=== PATIENT | male | born 1945 | race Hispanic/Latino ===

== ENCOUNTER 2016-10-19 14:48 | Inpatient (IN) | payer MEDICARE, MEDICAID ==
[2016-10-19 15:00] VITALS: BMI 25.7
--- NOTE | 2016-10-19 17:03 | RAD ---
PROCEDURE: Right Foot Radiographs. HISTORY: foot injury/paresthesia COMPARISON: None. FINDINGS: BONES: Normal. No fracture. JOINTS: Arthritic degenerative changes. SOFT TISSUES: Normal. OTHER FINDINGS: None. IMPRESSION: No evidence of acute fracture or dislocation.
[2016-10-19 17:26] LABS: ALB/GLOB RATIO 1.3 (1.1-1.8); ALKALINE PHOSPHATASE 69 U/L (38-133); ALT/SGPT 24 U/L (7-56); AST/SGOT 39 U/L (15-59); BILIRUBIN,TOTAL 2.2 mg/dL (0.2-1.3); BLOOD UREA NITROGEN 15 mg/dL (7-21); CALCIUM 9.8 mg/dL (8.4-10.5); CARBON DIOXIDE 27 mmol/L (21-33); CHLORIDE 98 mmol/L (98-107); GFR AFRICAN-AMERICAN > 60; GLUCOSE,RANDOM 106 mg/dL (70-110); POTASSIUM 3.8 mmol/L (3.6-5.0); SODIUM 138 mmol/L (132-148); TOTAL PROTEIN 7.5 g/dL (5.8-8.3)
[2016-10-19 17:27] LABS: ADD MANUAL DIFF? YES; HEMATOCRIT 39.7 % (42.0-52.0); MEAN CELL VOLUME 81.9 fL (80.0-105.0); MEAN CORPUSCULAR HEMOGLOBIN 28.2 pg (25.0-35.0); MEAN CORPUSCULAR HGB CONC 34.5 g/dl (31.0-37.0); PLATELET COUNT 67 10^3/uL (120.0-450.0); RED CELL DISTRIBUTION WIDTH 15.1 % (11.5-14.5)
[2016-10-19 17:40] LABS: INR 1.23 (0.93-1.08); PARTIAL THROMBOPLASTIN TIME 33.3 Seconds (23.7-30.8)
[2016-10-19] MEDS ORDERED: cefTRIAXone 1 gm 100 ML IVPB STA (18:11)
[2016-10-19] MEDS ORDERED: Vancomycin 1gm in NS 250ml 250 ML IVPB STA (18:12)
--- NOTE | 2016-10-19 18:15 | ED PDOC ---
Arrival/HPI - General Chief Complaint: Abnormal Skin Integrity Time Seen by Provider: 10/19/16 15:12 Historian: Patient - History of Present Illness Narrative History of Present Illness (Text): 10/19/16 18:12 71yo male with PMhx of hypertension, hyperlipdemia BIBA for right foot pain and paresthesia. States he started having pain and foot feels "frozen after removing his boot few days ago. He came to ED because of worsening pain to the foot. He did not take any medication. Denies fever, chills, trauma, any other complaint. Past Medical History - Provider Review Nursing Documentation Reviewed: Yes - Infectious Disease Hx of Infectious Diseases: None - Cardiac Hx Hypertension: Yes - Pulmonary Hx Respiratory Disorders: No - Neurological Hx Paralysis: No - HEENT Hx HEENT Disorder: No Other/Comment: wearing glasses - Renal Hx Renal Disorder: Yes Hx Pyelonephritis: Yes - Endocrine/Metabolic Hx Endocrine Disorders: No - Hematological/Oncological Hx Blood Transfusions: No - Integumentary Hx Dermatological Disorder: No - Musculoskeletal/Rheumatological Hx Musculoskeletal Disorders: No - Gastrointestinal Hx Gastrointestinal Disorders: No - Genitourinary/Gynecological Hx Genitourinary Disorders: Yes Hx Urinary Tract Infection: Yes - Psychiatric Hx Emotional Abuse: No Hx Physical Abuse: No Hx Substance Use: No - Past Surgical History Past Surgical History: No Previous - Surgical History Hx Coronary Stent: Yes - Anesthesia Hx Anesthesia Reactions: No Hx Malignant Hyperthermia: No - Suicidal Assessment Feels Threatened In Home Enviroment: No Family/Social History - Physician Review Nursing Documentation Reviewed: Yes Family/Social History: Unknown Family HX Smoking Status: Former Smoker Hx Alcohol Use: No Hx Substance Use: No Allergies/Home Meds Allergies/Adverse Reactions: Allergies No Known Allergies Allergy (Verified 10/19/16 15:00) Home Medications: Home Meds Medication Instructions Recorded Confirmed amLODIPine [Norvasc] 10 mg PO DAILY 10/14/15 09/04/16 Folic Acid 1 mg PO DAILY 12/07/15 09/04/16 Atorvastatin [Lipitor] 20 mg PO DAILY 09/04/16 09/04/16 Finasteride [Proscar] 5 mg PO DAILY 09/04/16 09/04/16 Simvastatin 40 mg PO DAILY 09/04/16 09/04/16 Review of Systems - Physician Review All systems were reviewed & negative as marked: Yes - Review of Systems Constitutional: Normal Eyes: Normal ENT: Normal Respiratory: Normal Cardiovascular: Normal Gastrointestinal: Normal Genitourinary Male: Normal Musculoskeletal: Arthralgias (Right foot pain) Skin: Normal Neurological: Normal Endocrine: Normal Hemo/Lymphatic: Normal Psychiatric: Normal Physical Exam Vital Signs Reviewed: Yes Vital Signs Temp Pulse Resp BP Pulse Ox 10/19/16 22:00 98.2 F 77 16 138/82 10/19/16 17:03 98.1 F 75 17 138/83 98 Temperature: Afebrile Blood Pressure: Normal Pulse: Regular Respiratory Rate: Normal Appearance: Positive for: Well-Appearing, Non-Toxic, Comfortable Pain Distress: None Mental Status: Positive for: Alert and Oriented X 3 - Systems Exam Head: Present: Atraumatic, Normocephalic Pupils: Present: PERRL Extroacular Muscles: Present: EOMI Conjunctiva: Present: Normal Mouth: Present: Moist Mucous Membranes Neck: Present: Normal Range of Motion Respiratory/Chest: Present: Clear to Auscultation, Good Air Exchange. No: Respiratory Distress, Accessory Muscle Use Cardiovascular: Present: Regular Rate and Rhythm, Normal S1, S2. No: Murmurs Abdomen: Present: Normal Bowel Sounds. No: Tenderness, Distention, Peritoneal Signs Back: Present: Normal Inspection Upper Extremity: Present: Normal Inspection. No: Cyanosis, Edema Lower Extremity: Present: Edema (3+ pitting edema), Tenderness (Over dorsal and 1st toe), Erythema (Dorsal right foot), Neurovascularly Intact. No: CALF TENDERNESS, NORMAL PULSES (DEcreased), Sandra's Sign, Temperature Abnormalties Neurological: Present: GCS=15, CN II-XII Intact, Speech Normal Skin: Present: Warm, Dry, Normal Color. No: Rashes Psychiatric: Present: Alert, Oriented x 3, Normal Insight, Normal Concentration Medical Decision Making ED Course and Treatment: 10/20/16 03:19 PT presented secondary to stated history. He was afebrile. Lab was unremarkable, but pt have cellulitis on his right foot secondary to the abrasion on his toe. He lives alone. He will be admitted for IV abx Foot xray was negative for any acute finding Case was AZAM Jacobsen and pt was admitted. - Lab Interpretations Lab Results: 10/19/16 16:50 10/19/16 16:50 Lab Results 10/19/16 16:50: WBC 11.0 D, RBC 4.85, Hgb 13.7 L, Hct 39.7 L, MCV 81.9, MCH 28.2, MCHC 34.5, RDW 15.1 H, Plt Count 67 L, Neutrophils % (Manual) 59, Band Neutrophils % 7 H, Lymphocytes % (Manual) 8 L, Monocytes % (Manual) 25 H, Eosinophils % (Manual) 1, Platelet Evaluation Normal, PT 13.3 H, INR 1.23 H, APTT 33.3 H, Sodium 138, Potassium 3.8, Chloride 98, Carbon Dioxide 27, Anion Gap 17, BUN 15, Creatinine 1.3, Est GFR ( Amer) > 60, Est GFR (Non-Af Amer) 54, Random Glucose 106, Calcium 9.8, Total Bilirubin 2.2 H, AST 39, ALT 24 , Alkaline Phosphatase 69, Total Protein 7.5, Albumin 4.3, Globulin 3.2, Albumin /Globulin Ratio 1.3 - RAD Interpretation Radiology Orders: 10/19/16 15:40 FOOT RIGHT 3 VIEWS ROUTINE [RAD] Stat - Medication Orders Current Medication Orders: Acetaminophen (Tylenol 325mg Tab) 650 mg PO Q6H PRN PRN Reason: Fever >100.4 F Amlodipine Besylate (Norvasc) 10 mg PO DAILY JESSI Atorvastatin Calcium (Lipitor) 20 mg PO DAILY JESSI Finasteride (Proscar) 5 mg PO DAILY JESSI Folic Acid (Folic Acid) 1 mg PO DAILY JESSI Ceftriaxone Sodium (Rocephin 1 Gram Ivpb) 100 mls @ 100 mls/hr IVPB DAILY JESSI PRN Reason: Protocol Vancomycin HCl (Vancomycin 1gm) 250 mls @ 167 mls/hr IVPB Q12H JESSI PRN Reason: Protocol Last Admin: 10/19/16 23:11 Dose: 167 MLS/HR eMAR Start Stop Document 10/19/16 23:11 MCV (Rec: 10/19/16 23:12 MCV [facility]) Intravenous Solution Start Date 10/19/16 Start Time 23:11 End Date 10/20/16 End time 00:41 Total Infusion Time 90 Oxycodone/Acetaminophen (Percocet 5/325 Mg Tab) 1 tab PO Q4H PRN PRN Reason: Pain, moderate (4-7) Stop: 10/22/16 22:45 Discontinued Medications Ceftriaxone Sodium (Rocephin 1 Gram Ivpb) 100 mls @ 200 mls/hr IVPB STAT STA PRN Reason: Protocol Stop: 10/19/16 18:40 Last Admin: 10/19/16 19:01 Dose: 200 MLS/HR eMAR Start Stop Document 10/19/16 19:01 REEDTimothy (Rec: 10/19/16 19:01 REEDJ [id number]) Intravenous Solution Start Date 10/19/16 Start Time 19:01 Vancomycin HCl (Vancomycin 1gm) 250 mls @ 167 mls/hr IVPB STAT STA PRN Reason: Protocol Stop: 10/19/16 19:41 Last Admin: 10/19/16 19:36 Dose: 167 MLS/HR eMAR Start Stop Document 10/19/16 19:36 EKEOO (Rec: 10/19/16 19:36 EKEOO [facility] [place] [id number]) Intravenous Solution Start Date 10/19/16 Start Time 19:36 Disposition/Present on Arrival - Present on Arrival Any Indicators Present on Arrival: No History of DVT/PE: No History of Uncontrolled Diabetes: No Urinary Catheter: No History of Decub. Ulcer: No History Surgical Site Infection Following: None - Disposition Have Diagnosis and Disposition been Completed?: Yes Diagnosis: Cellulitis Disposition: HOSPITALIZED Disposition Time: 18:10 Patient Problems: Current Active Problems Problem Status Diagnosed Cellulitis Acute Condition: FAIR
[2016-10-19 18:44] LABS: BAND 7 % (0-2); EOSINOPHIL 1 % (0.0-3.0); NEUTROPHIL 59 % (50.0-70.0)
[2016-10-19 18:45] LABS: PLATELET ESTIMATE NORMAL (NORMAL)
[2016-10-19] MEDS ORDERED: Oxycodone/Acetaminophen 5/325 mg Tab PO PRN (22:44)
[2016-10-19] MEDS: Vancomycin 1gm in NS 250ml 250 ML IVPB SCH (23:11)
[2016-10-20 07:48] LABS: ALB/GLOB RATIO 1.2 (1.1-1.8); ALKALINE PHOSPHATASE 61 U/L (38-133); ALT/SGPT 22 U/L (7-56); AST/SGOT 39 U/L (15-59); BILIRUBIN,TOTAL 1.9 mg/dL (0.2-1.3); BLOOD UREA NITROGEN 15 mg/dL (7-21); CALCIUM 9.1 mg/dL (8.4-10.5); CARBON DIOXIDE 26 mmol/L (21-33); CHLORIDE 99 mmol/L (98-107); CHOLESTEROL 120 mg/dL (130-200); GFR AFRICAN-AMERICAN > 60; GLUCOSE,RANDOM 91 mg/dL (70-110); POTASSIUM 4.1 mmol/L (3.6-5.0); SODIUM 137 mmol/L (132-148); TOTAL PROTEIN 6.6 g/dL (5.8-8.3); URIC ACID 8.4 mg/dL (3.5-8.5)
[2016-10-20 07:58] LABS: FREE T4 1.05 ng/dL (0.78-2.19)
[2016-10-20 08:12] LABS: PROSTATE SPECIFIC ANTIGEN 0.3 ng/mL (0.00-2.5); THYROID STIMULATING HORMONE 0.41 mIU/mL (0.46-4.68)
[2016-10-20 08:13] VITALS: RESP 20
[2016-10-20] MEDS: cefTRIAXone 1 gm 100 ML IVPB SCH (09:37)
[2016-10-20] MEDS ORDERED: Enoxaparin 40 mg Syringe SC SCH (10:00)
[2016-10-20] MEDS: Vancomycin 1gm in NS 250ml 250 ML IVPB SCH ×2 (12:38→22:17)
--- NOTE | 2016-10-20 13:26 | PN ---
DATE: 10/20/2016 The patient is a 71-year-old, seen and examined, not a very good historian. He states he was having some foot discomfort. When he took his shoes off he saw some swelling, he was unable to walk, so he came to the ER for evaluation. PHYSICAL EXAMINATION: GENERAL: He is awake and alert, communicative. VITAL SIGNS: He is afebrile, pulse 70, respirations 20, blood pressure 149/78. LUNGS: Bilateral good airflow, no rhonchi or crackle. HEART: S1, S2 audible. ABDOMEN: Soft, nontender, no rebound, no guarding. NEUROLOGIC: The patient is awake and alert, communicative. Moves all extremities. EXTREMITIES: Bilateral pretibial pulses are very feeble. He has, it seems like, blood blister in hi s right heel and the forefoot; however, the foot is not cold. LABORATORY: Sodium 137, potassium 4.1, chloride 99, CO2 26, BUN 15, creatinine 1.2, blood sugar of 9 1. C-reactive protein is more than 15, total cholesterol 120. His WBC is 11.0, hemoglobin 13, hemat ocrit 39.7, platelet of 67. PT is 13.3, INR 1.23. His right leg arterial Doppler is pending. ASSESSMENT AND PLAN: 1. Right foot contusion versus cellulitis versus trauma. 2. Hypertension. 3. Hyperlipidemia. 4. History of diverticulosis. 5. Status post . 6. Chronic anemia. 7. Coronary artery disease. PLAN: Currently, the patient is on his usual medications. He is on DVT prophylaxis. He is getting Rocephin and vanco. Awaiting podiatry and ID input. We will follow up his CBC and CMP in the a.m. We will follow up his blood cultures. Yakov Jacobsen MD cc: [phone] TT: 10/20/2016 13:26:20 Confirmation # [id number] Dictation # [id number] kareem
--- NOTE | 2016-10-20 13:44 | HP ---
HISTORY OF PRESENT ILLNESS: The patient is a 71-year-old, known to me from previous admission, who c norm to Emergency Room, very ____. The patient stated that he was having some discomfort, pain and sw elling in his right foot that got worse today to the point that he was unable to put any pressure. H as been having pain and swelling and had ____. Denies any trauma to the area. No history of fever o r chills. No history of nausea, vomiting, no diarrhea. PAST MEDICAL HISTORY: Significant for: 1. Hypertension. 2. History of diverticulosis and he had episode of diverticulitis. 3. History of coronary artery disease status post multiple angioplasties. 4. Hyperlipidemia. ALLERGIES: He is not allergic to any medications. MEDICATIONS AT HOME: He is on amlodipine 10 mg daily, simvastatin 40 mg daily, folic acid 1 mg daily , Proscar 5 mg daily, atorvastatin 40 mg daily. SOCIAL HISTORY: Denies smoking or drinking. He used to be a heavy smoker in the past. REVIEW OF SYSTEMS: Significant for right foot pain and swelling, erythema on the volar aspect. PHYSICAL EXAMINATION: GENERAL: He is awake and alert, communicative. VITAL SIGNS: He is afebrile, pulse 75, respirations 17, blood pressure 138/83. LUNGS: Bilateral fair airflow, no rhonchi or crackle. HEART: S1, S2 audible. No murmur. ABDOMEN: Soft, nontender, no rebound, no guarding. NEUROLOGIC: He is awake and alert and communicative. EXTREMITIES: He has right foot significant edema with palpable tenderness. LABORATORY DATA: WBC is 11, hemoglobin 13.7, hematocrit 39.7, platelet of 67. PT 13.3, INR 1.23. C hemistry: Sodium 138, potassium 3.8, chloride 98, CO2 of 27, BUN 15, creatinine 1.3, blood sugar of 106. X-ray of right foot: There is no evidence of acute fracture or dislocation. ASSESSMENT: 1. Right foot cellulitis. 2. Hypertension. 3. Hyperlipidemia. 4. Coronary artery disease. 5. Rule out gout. PLAN: Will resume the patient's usual medication and cover him empirically with antibiotics. Will o rder for uric acid level for the morning. Blood culture has been sent. ID consult by Dr. Frances and podiatric consult by Dr. Lucas have been requested. Yakov Jacobsen MD cc: [phone] TT: 10/20/2016 08:53:16 mn
--- NOTE | 2016-10-20 16:38 | CP.PCM.CON ---
History of Present Illness - History of Present Illness History of Present Illness: 71 year old male with PMH of HTN, dyslipidemia came in to [facility] because of of right foot pain and numbness which has worsened in the last 2-3 days since his boot was removed. He denies animal contacts, wading in water, walking barefoot on soil, specific trauma to the foot. He also denies fever or chills, no nausea or vomiting, headache or dizziness, no rhinorrhea, no chest pain, no SOB, no cough, no diarrhea, no dysuria. Infectious Diseases consult is requested to further evaluate and manage. 10/19/16 18:12 71yo male with PMhx of hypertension, hyperlipdemia BIBA for right foot pain and paresthesia. States he started having pain and foot feels "frozen after removing his boot few days ago. He came to ED because of worsening pain to the foot. He did not take any medication. Denies fever, chills, trauma, any other complaint. Review of Systems - Review of Systems All systems: reviewed and no additional remarkable complaints except (as per HPI ) Past Patient History - Infectious Disease Hx of Infectious Diseases: None - Past Medical History & Family History Past Medical History?: Yes Past Family History: Reviewed and not pertinent - Past Social History Smoking Status: Former Smoker Alcohol: None Drugs: Denies - CARDIAC Hx Hypertension: Yes - PULMONARY Hx Respiratory Disorders: No - NEUROLOGICAL Hx Paralysis: No - HEENT Hx HEENT Problems: No Other/Comment: wearing glasses - RENAL Hx Chronic Kidney Disease: Yes Hx Pyelonephritis: Yes - ENDOCRINE/METABOLIC Hx Endocrine Disorders: No - HEMATOLOGICAL/ONCOLOGICAL Hx Blood Transfusions: No - INTEGUMENTARY Hx Dermatological Problems: No - MUSCULOSKELETAL/RHEUMATOLOGICAL Hx Musculoskeletal Disorders: No - GASTROINTESTINAL Hx Gastrointestinal Disorders: No - GENITOURINARY/GYNECOLOGICAL Hx Genitourinary Disorders: Yes Hx Urinary Tract Infection: Yes - PSYCHIATRIC Hx Emotional Abuse: No Hx Physical Abuse: No Hx Substance Use: No - SURGICAL HISTORY Hx Coronary Stent: Yes - ANESTHESIA Hx Anesthesia Reactions: No Hx Malignant Hyperthermia: No Meds Allergies/Adverse Reactions: Allergies Allergy/AdvReac Type Severity Reaction Status Date / Time No Known Allergies Allergy Verified 10/19/16 15:00 - Medications Medications: Current Medications Acetaminophen (Tylenol 325mg Tab) 650 mg PO Q6H PRN PRN Reason: Fever >100.4 F Amlodipine Besylate (Norvasc) 10 mg PO DAILY JESSI Atorvastatin Calcium (Lipitor) 20 mg PO DAILY JESSI Finasteride (Proscar) 5 mg PO DAILY JESSI Folic Acid (Folic Acid) 1 mg PO DAILY JESSI Ceftriaxone Sodium (Rocephin 1 Gram Ivpb) 100 mls @ 100 mls/hr IVPB DAILY JESSI PRN Reason: Protocol Vancomycin HCl (Vancomycin 1gm) 250 mls @ 167 mls/hr IVPB Q12H JESSI PRN Reason: Protocol Last Admin: 10/19/16 23:11 Dose: 167 mls/hr Oxycodone/Acetaminophen (Percocet 5/325 Mg Tab) 1 tab PO Q4H PRN PRN Reason: Pain, moderate (4-7) Stop: 10/22/16 22:45 Physical Exam - Constitutional Appears: Non-toxic, No Acute Distress - Head Exam Head Exam: NORMAL INSPECTION - ENT Exam ENT Exam: Mucous Membranes Moist - Neck Exam Neck exam: Negative for: Lymphadenopathy, Meningismus - Respiratory Exam Respiratory Exam: Decreased Breath Sounds - Cardiovascular Exam Cardiovascular Exam: +S1, +S2 - GI/Abdominal Exam GI & Abdominal Exam: Soft. absent: Tenderness - Extremities Exam Additional comments: right foot with discoloration on the plantar surface with tenderness noted Results - Vital Signs Recent Vital Signs: Last Vital Signs Temp 98.1 F 10/19/16 17:03 Pulse 75 10/19/16 17:03 Resp 17 10/19/16 17:03 BP 138/83 10/19/16 17:03 Pulse Ox 98 10/19/16 17:03 - Labs Result Diagrams: 10/19/16 16:50 10/20/16 07:00 Assessment & Plan - Assessment and Plan (Free Text) Plan: Assessment Right foot skin and skin structure infection, R/O peripheral arterial disease HTN dyslipidemia Plan Started patient on Vancomycin and Rocephin pending blood cx, Podiatry evaluation ; xray of the foot reviewed which did not show acute pathology Follow up doppler ultrasound of the right leg Will follow clinically
--- NOTE | 2016-10-20 22:16 | US ---
PROCEDURE: Lower extremity ZULY exam HISTORY: Peripheral vascular disease with pain and ulceration. Previous smoker. PHYSICIAN(S): Sandip Storey MD. FINDINGS: The resting ZULY's are normal: right, 1.32and left, 1.13. The brachial systolic pressures are symmetric. The high thigh pressures and waveforms are relatively normal. The calf PVR waveforms augment normally. No significant gradients are noted across the thighs. The ankle and metatarsal waveforms are relatively normal and symmetric. No significant pressure gradients are noted across the lower legs. IMPRESSION: 1. Relatively normal ZULY and PVR examination at rest.
[2016-10-21 07:18] LABS: ALB/GLOB RATIO 1.2 (1.1-1.8); ALKALINE PHOSPHATASE 57 U/L (38-133); ALT/SGPT 22 U/L (7-56); AST/SGOT 29 U/L (15-59); BILIRUBIN,TOTAL 0.9 mg/dL (0.2-1.3); BLOOD UREA NITROGEN 16 mg/dL (7-21); CALCIUM 9.1 mg/dL (8.4-10.5); CARBON DIOXIDE 26 mmol/L (21-33); CHLORIDE 101 mmol/L (98-107); GFR AFRICAN-AMERICAN > 60; GLUCOSE,RANDOM 111 mg/dL (70-110); HEMATOCRIT 37.9 % (42.0-52.0); MEAN CELL VOLUME 82.4 fL (80.0-105.0); MEAN CORPUSCULAR HEMOGLOBIN 27.8 pg (25.0-35.0); MEAN CORPUSCULAR HGB CONC 33.8 g/dl (31.0-37.0); PLATELET COUNT 78 10^3/uL (120.0-450.0); POTASSIUM 4.2 mmol/L (3.6-5.0); RED CELL DISTRIBUTION WIDTH 15.1 % (11.5-14.5); SODIUM 137 mmol/L (132-148); TOTAL PROTEIN 6.5 g/dL (5.8-8.3)
[2016-10-21 07:21] LABS: ADD MANUAL DIFF? YES
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
[2016-10-21 08:57] LABS: ATYPICAL LYMPHOCYTE 2 % (0.0-0.0); BAND 5 % (0-2); NEUTROPHIL 70 % (50.0-70.0)
[2016-10-21 08:58] LABS: ANISOCYTOSIS 1+; EOSINOPHIL 2 % (0.0-3.0); HYPOCHROMIA SLIGHT; PLATELET ESTIMATE LOW (NORMAL)
[2016-10-21 08:59] LABS: LARGE PLATELETS PRESENT; MICROCYTOSIS SLIGHT; OVALOCYTES SLIGHT
[2016-10-21] MEDS: Vancomycin 1gm in NS 250ml 250 ML IVPB SCH ×2 (10:23→22:52)
[2016-10-21] MEDS: cefTRIAXone 1 gm 100 ML IVPB SCH (10:23)
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
--- NOTE | 2016-10-21 16:18 | CP.PCM.PN ---
Subjective - Date & Time of Evaluation Date of Evaluation: 10/21/16 Time of Evaluation: 15:20 - Subjective Subjective: Comfortable, afebrile, not in distress, less discomfort with the right foot. Objective - Vital Signs/Intake and Output Vital Signs (last 24 hours): Temp Pulse Resp BP Pulse Ox 98.6 F 72 20 137/81 98 10/21/16 09:10 10/21/16 10:21 10/21/16 09:10 10/21/16 10:21 10/21/16 09:10 Intake and Output: 10/21/16 10/21/16 06:59 18:59 Intake Total 850 Output Total 400 Balance 450 - Medications Medications: Current Medications Acetaminophen (Tylenol 325mg Tab) 650 mg PO Q6H PRN PRN Reason: Fever >100.4 F Amlodipine Besylate (Norvasc) 10 mg PO DAILY [facility] Last Admin: 10/21/16 10:21 Dose: 10 mg Atorvastatin Calcium (Lipitor) 20 mg PO DAILY [facility] Last Admin: 10/21/16 10:21 Dose: 20 mg Docusate Sodium (Colace) 100 mg PO BID [facility] Last Admin: 10/21/16 10:21 Dose: 100 mg Finasteride (Proscar) 5 mg PO DAILY [facility] Last Admin: 10/21/16 10:21 Dose: 5 mg Folic Acid (Folic Acid) 1 mg PO DAILY [facility] Last Admin: 10/21/16 10:21 Dose: 1 mg Ceftriaxone Sodium (Rocephin 1 Gram Ivpb) 100 mls @ 100 mls/hr IVPB DAILY [facility] PRN Reason: Protocol Last Admin: 10/21/16 10:23 Dose: 100 mls/hr Vancomycin HCl (Vancomycin 1gm) 250 mls @ 167 mls/hr IVPB Q12H [facility] PRN Reason: Protocol Last Admin: 10/21/16 10:23 Dose: 167 mls/hr Oxycodone/Acetaminophen (Percocet 5/325 Mg Tab) 1 tab PO Q4H PRN PRN Reason: Pain, moderate (4-7) Stop: 10/22/16 22:45 - Labs Labs: 10/21/16 06:30 10/21/16 06:30 PT 13.3 Seconds (9.9-11.8) H 10/19/16 16:50 INR 1.23 (0.93-1.08) H 10/19/16 16:50 APTT 33.3 Seconds (23.7-30.8) H 10/19/16 16:50 - Constitutional Appears: Non-toxic, No Acute Distress - Head Exam Head Exam: NORMAL INSPECTION - ENT Exam ENT Exam: Mucous Membranes Moist - Neck Exam Neck Exam: absent: Lymphadenopathy, Meningismus - Cardiovascular Exam Cardiovascular Exam: +S1, +S2 - GI/Abdominal Exam GI & Abdominal Exam: Soft. absent: Tenderness - Extremities Exam Additional comments: right foot with dressings in place Assessment and Plan - Assessment and Plan (Free Text) Plan: Assessment Right foot skin and skin structure infection, with no evidence of peripheral arterial disease HTN dyslipidemia Plan continue Vancomycin and Rocephin (day 2); blood cx have been negative; reviewed Podiatry evaluation; xray of the foot reviewed which did not show acute pathology Will continue to follow clinically
[2016-10-21 17:44] VITALS: O2SAT 97
--- NOTE | 2016-10-22 06:50 | PN ---
DATE: 10/21/2016 The patient is a 71-year-old, seen and examined lying in bed. Does not have much complaint. Eating and tolerating. No nausea, vomiting, no diarrhea. PHYSICAL EXAMINATION: VITAL SIGNS: He is afebrile, pulse 70, respirations 20, blood pressure 128/78. LUNGS: Bilateral good airflow, no rhonchi or crackle. HEART: S1, S2 audible. No murmur. ABDOMEN: Soft, nontender. No rebound, no guarding. NEUROLOGIC: He is awake and alert, communicative, able to move all extremities. LABORATORY EXAM: WBC is 10, hemoglobin 12.8, hematocrit 37.9, platelets 78. Chemistry: Sodium 137, potassium 4.2, chloride 101, CO2 of 26, BUN 16, creatinine 1.3, blood sugar 111. C-reactive protein is more than 15. His right foot has a blood blister under his fourth toe and in the right heel. ASSESSMENT: 1. Right foot frostbite. I discussed with Dr. Lucas. She does not want him to be on any weightbe aring yet and should be in subacute rehabilitation. 2. Mild cellulitis, improving. 3. Hypertension. 4. Thrombocytopenia. 5. Coronary artery disease. 6. Hyperlipidemia. PLAN: The patient is being evaluated by physical therapist. He is getting Rocephin and vancomycin. He is on an analgesic. I will put him on Lovenox for DVT prophylaxis, although he is thrombocytopen ic. I also spoke with public health social worker; will [facility] Will [facility]evaluate patient in a.. Yakov Jacobsen MD cc: [phone] TT: 10/22/2016 06:49:49 Confirmation # [id number] Dictation # [id number] mn
[2016-10-22 08:50] VITALS: BP 137/80; PULSE 64; TEMP 97.7
[2016-10-22] MEDS: cefTRIAXone 1 gm 100 ML IVPB SCH (09:28)
[2016-10-22] MEDS ORDERED: Enoxaparin 40 mg Syringe SC SCH (10:00)
--- NOTE | 2016-10-22 11:07 | CP.PCM.PN ---
<Heidi Parr - Last Filed: 10/22/16 11:05> Subjective - Date & Time of Evaluation Date of Evaluation: 10/22/16 Time of Evaluation: 11:05 - Subjective Subjective: 71 y/o male seen at bedside with attending Dr. Lucas for right foot frostbite with blisters. Patient denies any acute events overnight. patient denies any pain to his feet. Patients dressing remains clean,dry,intact. Denies n/f/v/c/d/ sob. Objective - Vital Signs/Intake and Output Vital Signs (last 24 hours): Temp Pulse Resp BP Pulse Ox 97.7 F 64 20 137/80 97 10/22/16 08:00 10/22/16 08:00 10/22/16 08:00 10/22/16 08:00 10/22/16 08:00 Intake and Output: 10/22/16 10/22/16 06:59 18:59 Intake Total 840 3106 Balance 840 3106 - Medications Medications: Current Medications Acetaminophen (Tylenol 325mg Tab) 650 mg PO Q6H PRN PRN Reason: Fever >100.4 F Amlodipine Besylate (Norvasc) 10 mg PO DAILY [facility] Last Admin: 10/22/16 09:27 Dose: 10 mg Atorvastatin Calcium (Lipitor) 20 mg PO DAILY [facility] Last Admin: 10/22/16 09:27 Dose: 20 mg Docusate Sodium (Colace) 100 mg PO BID [facility] Last Admin: 10/22/16 09:27 Dose: 100 mg Enoxaparin Sodium (Lovenox) 40 mg SC DAILY [facility] PRN Reason: Protocol Last Admin: 10/22/16 09:27 Dose: 40 mg Finasteride (Proscar) 5 mg PO DAILY [facility] Last Admin: 10/22/16 09:27 Dose: 5 mg Folic Acid (Folic Acid) 1 mg PO DAILY [facility] Last Admin: 10/22/16 09:27 Dose: 1 mg Ceftriaxone Sodium (Rocephin 1 Gram Ivpb) 100 mls @ 100 mls/hr IVPB DAILY [facility] PRN Reason: Protocol Last Admin: 10/22/16 09:28 Dose: 100 mls/hr Vancomycin HCl (Vancomycin 1gm) 250 mls @ 167 mls/hr IVPB Q12H [facility] PRN Reason: Protocol Last Admin: 10/21/16 22:52 Dose: 167 mls/hr Oxycodone/Acetaminophen (Percocet 5/325 Mg Tab) 1 tab PO Q4H PRN PRN Reason: Pain, moderate (4-7) Stop: 10/22/16 22:45 - Labs Labs: 10/21/16 06:30 10/21/16 06:30 PT 13.3 Seconds (9.9-11.8) H 10/19/16 16:50 INR 1.23 (0.93-1.08) H 10/19/16 16:50 APTT 33.3 Seconds (23.7-30.8) H 10/19/16 16:50 - Constitutional Appears: Well, Non-toxic, No Acute Distress - Extremities Exam Additional comments: Vasc: palpable dorsalis pedis pulse of right, PT nonpalpable b/l, TG wnl, CFT < 3 sec to all digits neuro: grossly diminished derm: resolving blisters along the plantar metatarsals, extending along the lateral plantar arch and to the heel, erythema and bluish discoloration to the plantar aspect of digits 1-3 of right foot, no drainage, acute clinical signs of infection, no ascending cellutitis ortho: no pain to palpation of right foot - Neurological Exam Neurological Exam: Alert, Awake, Oriented x3 - Psychiatric Exam Psychiatric exam: Normal Affect, Normal Mood Assessment and Plan - Assessment and Plan (Free Text) Assessment: 71 y/o male seen at bedside for resolving blisters and ischemia of right foot secondary to frostbite. Plan: patient evaluated and seen at bedside with attending Dr. Lucas labs and vitals reviewed; afebrile continue IV abx cleansed foot with saline, applied DSD kerlix to right foot continue wearing multipodus boots while in bed arterial US- relatively normal ZULY/PVR patient to remain non weightbearing to right foot and recommend acute rehab facility due to patients weight bearing limitations podiatry will continue to monitor while patient remains in house <Nkechi Lucas - Last Filed: 10/23/16 15:04> Objective - Vital Signs/Intake and Output Vital Signs (last 24 hours): Temp Pulse Resp BP Pulse Ox 97.7 F 64 20 137/80 97 10/22/16 08:00 10/22/16 08:00 10/22/16 08:00 10/22/16 08:00 10/22/16 08:00 - Labs Labs: 10/21/16 06:30 10/21/16 06:30 PT 13.3 Seconds (9.9-11.8) H 10/19/16 16:50 INR 1.23 (0.93-1.08) H 10/19/16 16:50 APTT 33.3 Seconds (23.7-30.8) H 10/19/16 16:50 Attending/Attestation - Attestation I have personally seen and examined this patient.: Yes I have fully participated in the care of the patient.: Yes I have reviewed all pertinent clinical information, including history, physical exam and plan: Yes
[2016-10-22] MEDS: Vancomycin 1gm in NS 250ml 250 ML IVPB SCH (12:30)
--- NOTE | 2016-10-22 14:37 | DS ---
The patient is a 71-year-old, seen and examined, doing well. No chest pain, no shortness of breath, no nausea, vomiting, no diarrhea. Eating and tolerating. Not much pain in the right foot. Diagnosi s is frostbite and currently receiving antibiotic. As per health outreach worker the patient will be nonweightbe aring until his wound is healed. PHYSICAL EXAMINATION: GENERAL: He is awake and alert, communicative. VITAL SIGNS: He is afebrile, pulse 64, respirations 20, blood pressure 137/80. LUNGS: Bilateral good airflow, no rhonchi or crackle. HEART: S1, S2 audible. ABDOMEN: Soft, nontender, no rebound, no guarding. NEUROLOGIC: The patient is awake and alert, communicative, right foot with dressing, he has blood bl ister on forefoot sole and the right heel. LABORATORY EXAM: There is no new lab available today. ASSESSMENT: 1. Right foot frostbite with cellulitis. 2. Hypertension. 3. Hyperlipidemia. 4. Thrombocytopenia. 5. Coronary artery disease, status post angioplasty in the remote past. 6. Hyperlipidemia. PLAN: Discussed with Dr. Siegel, will continue him on current antibiotic that is vancomycin and Rocep hin. He will be transferred to [facility] today for rehab and continuation of antibiotic. We will ge t physical therapy and I will follow the patient in [facility]. Yakov Jacobsen MD cc: [phone] TT: 10/22/2016 14:36:34 jn
--- NOTE | 2016-10-22 15:14 | CP.PCM.PN ---
Subjective - Date & Time of Evaluation Date of Evaluation: 10/22/16 Time of Evaluation: 11:05 - Subjective Subjective: Comfortable in bed, not in distress, less pain in the right foot, afebrile overnight. Objective - Vital Signs/Intake and Output Vital Signs (last 24 hours): Temp Pulse Resp BP Pulse Ox 97.7 F 64 20 137/80 97 10/22/16 08:00 10/22/16 08:00 10/22/16 08:00 10/22/16 08:00 10/22/16 08:00 Intake and Output: 10/22/16 10/22/16 06:59 18:59 Intake Total 840 3106 Balance 840 3106 - Medications Medications: Current Medications Acetaminophen (Tylenol 325mg Tab) 650 mg PO Q6H PRN PRN Reason: Fever >100.4 F Amlodipine Besylate (Norvasc) 10 mg PO DAILY [facility] Last Admin: 10/22/16 09:27 Dose: 10 mg Atorvastatin Calcium (Lipitor) 20 mg PO DAILY [facility] Last Admin: 10/22/16 09:27 Dose: 20 mg Docusate Sodium (Colace) 100 mg PO BID [facility] Last Admin: 10/22/16 09:27 Dose: 100 mg Enoxaparin Sodium (Lovenox) 40 mg SC DAILY [facility] PRN Reason: Protocol Last Admin: 10/22/16 09:27 Dose: 40 mg Finasteride (Proscar) 5 mg PO DAILY [facility] Last Admin: 10/22/16 09:27 Dose: 5 mg Folic Acid (Folic Acid) 1 mg PO DAILY [facility] Last Admin: 10/22/16 09:27 Dose: 1 mg Ceftriaxone Sodium (Rocephin 1 Gram Ivpb) 100 mls @ 100 mls/hr IVPB DAILY [facility] PRN Reason: Protocol Last Admin: 10/22/16 09:28 Dose: 100 mls/hr Vancomycin HCl (Vancomycin 1gm) 250 mls @ 167 mls/hr IVPB Q12H [facility] PRN Reason: Protocol Last Admin: 10/21/16 22:52 Dose: 167 mls/hr Oxycodone/Acetaminophen (Percocet 5/325 Mg Tab) 1 tab PO Q4H PRN PRN Reason: Pain, moderate (4-7) Stop: 10/22/16 22:45 - Labs Labs: 10/21/16 06:30 10/21/16 06:30 PT 13.3 Seconds (9.9-11.8) H 10/19/16 16:50 INR 1.23 (0.93-1.08) H 10/19/16 16:50 APTT 33.3 Seconds (23.7-30.8) H 10/19/16 16:50 - Constitutional Appears: Non-toxic, No Acute Distress - Head Exam Head Exam: NORMAL INSPECTION - ENT Exam ENT Exam: Mucous Membranes Moist - Neck Exam Neck Exam: absent: Lymphadenopathy, Meningismus - Respiratory Exam Respiratory Exam: Decreased Breath Sounds - Cardiovascular Exam Cardiovascular Exam: +S1, +S2 - GI/Abdominal Exam GI & Abdominal Exam: Soft. absent: Tenderness - Extremities Exam Additional comments: right foot with dry dressings in place Assessment and Plan - Assessment and Plan (Free Text) Plan: Assessment Right foot skin and skin structure infection, with no evidence of peripheral arterial disease, slowly improving HTN dyslipidemia Plan continue Vancomycin and Rocephin (day 3); blood cx have been negative; reviewed Podiatry evaluation; xray of the foot reviewed which did not show acute pathology; recommend to continue same antibiotics for another 3-5 days Will continue to follow clinically while the patient is in the hospital Discussed with Dr. Jacobsen
== END 2016-10-22 20:08 | DRG 603 ==
LOC: ED 14:48 → ERH 18:14 → 5RNO 22:47
PROVIDERS: ADMIT Internal Medicine; ATTEND Internal Medicine
DX: L03.115 Cellulitis of right lower limb (principal); T33.821A Superficial frostbite of right foot, initial encounter; D69.6 Thrombocytopenia, unspecified; D64.9 Anemia, unspecified; S90.821A Blister (nonthermal), right foot, initial encounter; I10 Essential (primary) hypertension; I25.10 Atherosclerotic heart disease of native coronary artery without angina pectoris; E78.5 Hyperlipidemia, unspecified; Z87.891 Personal history of nicotine dependence; X31.XXXA Exposure to excessive natural cold, initial encounter; Z95.5 Presence of coronary angioplasty implant and graft

== ENCOUNTER 2016-12-04 14:33 | Emergency (ER) | payer MEDICAID, MEDICARE, OTHER ==
[2016-12-04 14:38] VITALS: BMI 29.0
[2016-12-04 14:47] VITALS: RESP 16; TEMP 99.2
--- NOTE | 2016-12-04 14:57 | ED PDOC ---
Arrival/HPI - General Chief Complaint: GI Problem Time Seen by Provider: 12/04/16 14:40 Historian: Patient - History of Present Illness Narrative History of Present Illness (Text): 12/04/16 14:50 71 yo male, h/o HTN, CAD, HLD, Right Foot Frostbite, presents to the ED c/o nausea that occurred 2 hours ago. No vomiting, diarrhea, constipation or abdominal pain. He said its almost resolved. No fever, chills or body aches. No lightheadedness or dizziness. No weakness, bodyaches or chills. PMD: Dr. Jacobsen Past Medical History - Provider Review Nursing Documentation Reviewed: Yes - Infectious Disease Hx of Infectious Diseases: None - Cardiac Hx Cardiac Disorders: Yes Hx Hypertension: Yes - Pulmonary Hx Respiratory Disorders: No - Neurological Hx Neurological Disorder: Yes HX Cerebrovascular Accident: Yes (TIA) - HEENT Hx HEENT Disorder: No Other/Comment: wearing glasses - Renal Hx Renal Disorder: Yes Hx Pyelonephritis: Yes - Endocrine/Metabolic Hx Endocrine Disorders: No - Hematological/Oncological Hx Blood Transfusions: No - Integumentary Hx Dermatological Disorder: No - Musculoskeletal/Rheumatological Hx Musculoskeletal Disorders: No - Gastrointestinal Hx Gastrointestinal Disorders: No - Genitourinary/Gynecological Hx Genitourinary Disorders: Yes Hx Urinary Tract Infection: Yes - Psychiatric Hx Psychophysiologic Disorder: No Hx Emotional Abuse: No Hx Physical Abuse: No Hx Substance Use: No - Past Surgical History Past Surgical History: No Previous - Surgical History Hx Coronary Stent: Yes - Anesthesia Hx Anesthesia Reactions: No Hx Malignant Hyperthermia: No - Suicidal Assessment Feels Threatened In Home Enviroment: No Family/Social History - Physician Review Nursing Documentation Reviewed: Yes Family/Social History: No Known Family HX Smoking Status: Former Smoker Hx Alcohol Use: No Hx Substance Use: No Allergies/Home Meds Allergies/Adverse Reactions: Allergies No Known Allergies Allergy (Verified 12/04/16 14:38) Home Medications: Home Meds Medication Instructions Recorded Confirmed amLODIPine [Norvasc] 10 mg PO DAILY 10/14/15 12/04/16 Folic Acid 1 mg PO DAILY 12/07/15 12/04/16 Atorvastatin [Lipitor] 20 mg PO DAILY 09/04/16 12/04/16 Finasteride [Proscar] 5 mg PO DAILY 09/04/16 12/04/16 Simvastatin 40 mg PO DAILY 09/04/16 12/04/16 Clopidogrel [Plavix] 75 mg PO DAILY 12/04/16 12/04/16 Review of Systems - Physician Review All systems were reviewed & negative as marked: Yes - Review of Systems Constitutional: Normal Eyes: Normal ENT: Normal Respiratory: Normal. absent: SOB, Cough, Sputum Cardiovascular: Normal. absent: Chest Pain Gastrointestinal: Normal Genitourinary Male: Normal Musculoskeletal: Normal. absent: Back Pain, Neck Pain Skin: Normal Neurological: Normal. absent: Headache, Dizziness, Focal Weakness, Gait Changes , Speech Changes, Facial Droop, Disequilibrium, Seizure Endocrine: Normal Hemo/Lymphatic: Normal Psychiatric: Normal Physical Exam Vital Signs Reviewed: Yes Vital Signs Temp Pulse Resp BP Pulse Ox 12/04/16 14:43 99.2 F 95 H 16 130/81 98 Temperature: Afebrile Blood Pressure: Normal Pulse: Regular Respiratory Rate: Normal Appearance: Positive for: Well-Appearing, Non-Toxic, Comfortable Pain Distress: None Mental Status: Positive for: Alert and Oriented X 3 - Systems Exam Head: Present: Atraumatic, Normocephalic Pupils: Present: PERRL Extroacular Muscles: Present: EOMI Conjunctiva: Present: Normal Mouth: Present: Moist Mucous Membranes Neck: Present: Normal Range of Motion. No: Bruit Respiratory/Chest: Present: Clear to Auscultation, Good Air Exchange. No: Respiratory Distress, Accessory Muscle Use Cardiovascular: Present: Regular Rate and Rhythm, Normal S1, S2. No: Murmurs Abdomen: Present: Normal Bowel Sounds. No: Tenderness, Distention, Peritoneal Signs Back: Present: Normal Inspection Upper Extremity: Present: Normal Inspection, NORMAL PULSES. No: Cyanosis, Edema Lower Extremity: Present: Normal Inspection, NORMAL PULSES, Normal ROM, Neurovascularly Intact, Other (right 1st toe with 1.5cm ucler healing; no pus or redness; guaze placed with boot/shoe). No: Edema, Tenderness, Swelling Neurological: Present: GCS=15, CN II-XII Intact, Speech Normal, Motor Func Grossly Intact, Normal Sensory Function, Normal Cerebellar Funct Skin: Present: Warm, Dry, Normal Color. No: Rashes Psychiatric: Present: Alert, Oriented x 3, Normal Insight, Normal Concentration Medical Decision Making ED Course and Treatment: 12/04/16 15:07 71 yo male with nausea; no vomiting contrary to triage; no abdominal pain -- Labs -- EKG, CXR -- Zofran IV -- Reevaluate and disposition 12/04/16 16:07 On reevaluation, patient feels much better. No longer has symptoms. Abdomen is soft, NT, ND. He is tolerating PO fluids. He was explained that he should return if symptoms worsen, fever, chest pain, abdominal pain, or any other concern. - Lab Interpretations Lab Results: 12/04/16 15:00 12/04/16 15:00 Lab Results 12/04/16 15:00: Sodium 139, Potassium 3.9, Chloride 104, Carbon Dioxide 25, Anion Gap 14, BUN 16, Creatinine 1.2, Est GFR ( Amer) > 60, Est GFR (Non- Af Amer) 60, Random Glucose 99, Calcium 9.9, Magnesium 1.7, Total Bilirubin 1.0 , AST 22, ALT 29, Alkaline Phosphatase 50, Lactate Dehydrogenase 539, Total Creatine Kinase 59, Troponin I 0.06, Total Protein 7.6, Albumin 4.4, Globulin 3.2, Albumin/Globulin Ratio 1.4, Lipase 179 12/04/16 15:00: WBC 7.4 D, RBC 5.04, Hgb 14.6, Hct 42.2, MCV 83.7, MCH 29.0, MCHC 34.6, RDW 15.7 H, Plt Count 72 L, MPV 11.5 H, Gran % 69.3 H, Lymph % (Auto ) 10.8 L, [place] % (Auto) 19.5 H, Eos % (Auto) 0.4 L, Baso % (Auto) 0.0, Gran # 5.13, Lymph # 0.8 L, [place] # 1.4 H, Eos # 0.0, Baso # 0.00 I have reviewed the lab results: Yes Interpretation: All labs normal - RAD Interpretation Radiology Orders: 12/04/16 14:49 CHEST PORTABLE [RAD] Stat Clinical Pharmacist: ED Physician - EKG Interpretation Interpreted by ED Physician: Yes (NSR at 87 bpm with sinus arythmia, no ST elevations) Type: 12 lead EKG Comparison: Similar to previous EKG - Medication Orders Current Medication Orders: Discontinued Medications Ondansetron HCl (Zofran Inj) 4 mg IVP STAT STA Stop: 12/04/16 14:50 Last Admin: 12/04/16 15:14 Dose: 4 mg Disposition/Present on Arrival - Present on Arrival Any Indicators Present on Arrival: No History of DVT/PE: No History of Uncontrolled Diabetes: No Urinary Catheter: No History of Decub. Ulcer: No History Surgical Site Infection Following: None - Disposition Have Diagnosis and Disposition been Completed?: Yes Diagnosis: Nausea Disposition: HOME/ ROUTINE Disposition Time: 16:09 Patient Plan: Discharge Patient Problems: Current Active Problems Problem Status Onset Nausea Acute Condition: IMPROVED Discharge Instructions (ExitCare): Acute Nausea and Vomiting (ED) Additional Instructions: Mr Gandhi, thank you for letting us take care of you today. Your provider was Dr. Blum. You were treated for Nausea. The emergency medical care you received today was directed at your acute symptoms. If you were prescribed any medication, please fill it and take as directed. It may take several days for your symptoms to resolve. Return to the Emergency Department if your symptoms worsen, do not improve, or if you have any other problems. Please contact your doctor or call one of the physicians/clinics you have been referred to that are listed on the Patient Visit Information form that is included in your discharge packet. Bring any paperwork you were given at discharge with you along with any medications you are taking to your follow up visit. Our treatment cannot replace ongoing medical care by a primary care provider (PCP) outside of the emergency department. Thank you for allowing the [facility] team to be part of your care today. If you had an X-Ray or CT scan: A Radiologist will review the ED reading if any change in treatment is needed we will contact you. If you had a blood, urine, or wound culture: It will take several days for the results, if any change in treatment is needed we will contact you. If you had an STI test: It will take 48 hours for the results. Please call after 1 week if you have not heard back. Prescriptions: Ondansetron ODT [Zofran ODT] 4 mg PO Q6 #14 odt Referrals: Valerio Patel MD [Primary Care Provider] - Follow up with primary Forms: [facility] Visits Discharge (Romanian), WORK NOTE
[2016-12-04 15:13] LABS: ADD MANUAL DIFF? NO
[2016-12-04 15:15] LABS: EOS % 0.4 % (1.5-5.0); GRAN # 5.13 (1.4-6.5); GRAN % 69.3 % (50.0-68.0); HEMATOCRIT 42.2 % (42.0-52.0); LYMPH # 0.8 (1.2-3.4); LYMPH % 10.8 % (22.0-35.0); MEAN CELL VOLUME 83.7 fL (80.0-105.0); MEAN CORPUSCULAR HGB CONC 34.6 g/dl (31.0-37.0); MEAN PLATELET VOLUME 11.5 fl (7.0-11.0); MONO # 1.4 (0.1-0.6); MONO % 19.5 % (1.0-6.0); PLATELET COUNT 72 10^3/uL (120.0-450.0); RED CELL DISTRIBUTION WIDTH 15.7 % (11.5-14.5); WHITE BLOOD COUNT 7.4 10^3/ul (4.5-11.0)
--- NOTE | 2016-12-04 15:17 | RAD ---
HISTORY: nausea COMPARISON: 08/20/2015 FINDINGS: LUNGS: The lungs are clear. PLEURA: No significant left pleural effusion identified, no pneumothorax apparent. There is calcification in the right basilar pleura. There is blunting of the right costophrenic angle. CARDIOVASCULAR: Normal. OSSEOUS STRUCTURES: No significant abnormalities. VISUALIZED UPPER ABDOMEN: Normal. OTHER FINDINGS: None. IMPRESSION: No active pulmonary disease. Right pleural thickening and calcified plaques in the right basilar pleura.
[2016-12-04 15:49] LABS: ALB/GLOB RATIO 1.4 (1.1-1.8); ALKALINE PHOSPHATASE 50 U/L (38-133); ALT/SGPT 29 U/L (7-56); AST/SGOT 22 U/L (15-59); BLOOD UREA NITROGEN 16 mg/dL (7-21); CALCIUM 9.9 mg/dL (8.4-10.5); CARBON DIOXIDE 25 mmol/L (21-33); CHLORIDE 104 mmol/L (98-107); GFR AFRICAN-AMERICAN > 60; GLUCOSE,RANDOM 99 mg/dL (70-110); LIPASE 179 U/L (23-300); MAGNESIUM 1.7 mg/dL (1.7-2.2); POTASSIUM 3.9 mmol/L (3.6-5.0); SODIUM 139 mmol/L (132-148); TOTAL PROTEIN 7.6 g/dL (5.8-8.3)
[2016-12-04 16:00] LABS: TROPONIN I 0.06 ng/mL
[2016-12-04 16:12] VITALS: BP 136/79; PULSE 87; O2SAT 99
--- NOTE | 2016-12-04 19:42 | CARD ---
APPROVED REPORT EKG Measurement Heart [id number] CT 190P52 [id number] <Conclusion> Normal sinus rhythm with sinus arrhythmia Left axis deviation Left ventricular hypertrophy with QRS widening and repolarization abnormality Septal infarct, age undetermined Abnormal ECG
== END 2016-12-04 16:26 | disposition home or self-care (01) ==
LOC: ED 14:33
DX: R11.0 Nausea (principal); I10 Essential (primary) hypertension; Z87.891 Personal history of nicotine dependence
CPT/HCPCS: 71010; 80053; 82550; 83615; 83690; 83735; 84484; 85025; 93005; 96374; 99284; J2405

== ENCOUNTER 2016-12-05 05:34 | Emergency (ER) | payer MEDICAID, MEDICARE, OTHER ==
[2016-12-05 05:34] VITALS: BMI 29.0
[2016-12-05 07:43] VITALS: RESP 18
[2016-12-05 07:58] LABS: HEMATOCRIT 45.9 % (42.0-52.0); MEAN CORPUSCULAR HEMOGLOBIN 28.3 pg (25.0-35.0); MEAN CORPUSCULAR HGB CONC 33.3 g/dl (31.0-37.0); PLATELET COUNT 76 10^3/uL (120.0-450.0)
[2016-12-05 08:04] LABS: ALB/GLOB RATIO 1.4 (1.1-1.8); ALKALINE PHOSPHATASE 53 U/L (38-133); ALT/SGPT 33 U/L (7-56); AST/SGOT 24 U/L (15-59); BILIRUBIN,TOTAL 1.2 mg/dL (0.2-1.3); BLOOD UREA NITROGEN 16 mg/dL (7-21); CALCIUM 10.2 mg/dL (8.4-10.5); CARBON DIOXIDE 28 mmol/L (21-33); CHLORIDE 103 mmol/L (98-107); GFR AFRICAN-AMERICAN > 60; GLUCOSE,RANDOM 91 mg/dL (70-110); POTASSIUM 4.2 mmol/L (3.6-5.0); SODIUM 144 mmol/L (132-148)
[2016-12-05 08:09] LABS: ADD MANUAL DIFF? YES
--- NOTE | 2016-12-05 08:12 | ED PDOC ---
Arrival/HPI - General Chief Complaint: Lower Extremity Problem/Injury Time Seen by Provider: 12/05/16 07:02 Historian: Patient - History of Present Illness Narrative History of Present Illness (Text): 12/05/16 08:07 A 71 year old male presents to the emergency department complaining of pain to his right big toe for the past few days. Patient describes it as a throbbing sensation. He reports he was recently being treated at [facility] for the cellulitis on his toe. Patient denies any fever, chills, nausea, vomiting, diarrhea, abdominal pain, urinary symptoms, chest pain, shortness of breath or any other complaints. PMD: Dr. Patel Time/Duration: Other (few days) Symptom Course: Unchanged Quality: Other Context: Home Past Medical History - Provider Review Nursing Documentation Reviewed: Yes - Infectious Disease Hx of Infectious Diseases: None - Cardiac Hx Cardiac Disorders: Yes Hx Hypertension: Yes - Pulmonary Hx Respiratory Disorders: No - Neurological Hx Neurological Disorder: Yes HX Cerebrovascular Accident: Yes (TIA) - HEENT Hx HEENT Disorder: No Other/Comment: wearing glasses - Renal Hx Renal Disorder: Yes Hx Pyelonephritis: Yes - Endocrine/Metabolic Hx Endocrine Disorders: No - Hematological/Oncological Hx Blood Transfusions: No - Integumentary Hx Dermatological Disorder: No - Musculoskeletal/Rheumatological Hx Musculoskeletal Disorders: No - Gastrointestinal Hx Gastrointestinal Disorders: No - Genitourinary/Gynecological Hx Genitourinary Disorders: Yes Hx Urinary Tract Infection: Yes - Psychiatric Hx Psychophysiologic Disorder: No Hx Emotional Abuse: No Hx Physical Abuse: No Hx Substance Use: No - Past Surgical History Past Surgical History: No Previous - Surgical History Hx Coronary Stent: Yes - Anesthesia Hx Anesthesia Reactions: No Hx Malignant Hyperthermia: No - Suicidal Assessment Feels Threatened In Home Enviroment: No Family/Social History - Physician Review Nursing Documentation Reviewed: Yes Family/Social History: No Known Family HX Smoking Status: Former Smoker Hx Alcohol Use: No Hx Substance Use: No Allergies/Home Meds Allergies/Adverse Reactions: Allergies No Known Allergies Allergy (Verified 12/04/16 14:38) Home Medications: Home Meds Medication Instructions Recorded Confirmed amLODIPine [Norvasc] 10 mg PO DAILY 10/14/15 12/04/16 Folic Acid 1 mg PO DAILY 12/07/15 12/04/16 Atorvastatin [Lipitor] 20 mg PO DAILY 09/04/16 12/04/16 Finasteride [Proscar] 5 mg PO DAILY 09/04/16 12/04/16 Simvastatin 40 mg PO DAILY 09/04/16 12/04/16 Clopidogrel [Plavix] 75 mg PO DAILY 12/04/16 12/04/16 Review of Systems - Physician Review All systems were reviewed & negative as marked: Yes - Review of Systems Constitutional: absent: Fevers, Night Sweats Respiratory: absent: SOB Cardiovascular: absent: Chest Pain Gastrointestinal: absent: Abdominal Pain, Diarrhea, Nausea, Vomiting Genitourinary Male: absent: Dysuria, Frequency, Hematuria, Urinary Output Changes Musculoskeletal: Other (Right toe pain) Physical Exam Vital Signs Reviewed: Yes Vital Signs Temp Pulse Resp BP Pulse Ox 12/05/16 11:13 98 F 62 18 130/73 97 12/05/16 09:42 57 L 18 123/76 98 12/05/16 07:43 57 L 18 128/73 100 12/05/16 05:44 98.1 F 81 17 147/85 97 Temperature: Afebrile Blood Pressure: Normal Pulse: Regular Respiratory Rate: Normal Appearance: Positive for: Well-Appearing, Non-Toxic, Comfortable Pain Distress: None Mental Status: Positive for: Alert and Oriented X 3 - Systems Exam Head: Present: Atraumatic, Normocephalic Pupils: Present: PERRL Extroacular Muscles: Present: EOMI Conjunctiva: Present: Normal Mouth: Present: Moist Mucous Membranes Respiratory/Chest: Present: Clear to Auscultation, Good Air Exchange. No: Respiratory Distress, Accessory Muscle Use Cardiovascular: Present: Regular Rate and Rhythm, Normal S1, S2. No: Murmurs Lower Extremity: Present: NORMAL PULSES, Neurovascularly Intact, Other ( Cellulitis on right toe 0.5 cm in diameter, well healing, no drainage noted). No: Edema, CALF TENDERNESS, Tenderness, Swelling, Erythema, Deformity, Temperature Abnormalties Neurological: Present: GCS=15, CN II-XII Intact, Speech Normal Skin: Present: Warm, Dry, Normal Color. No: Rashes Psychiatric: Present: Alert, Oriented x 3, Normal Insight, Normal Concentration Medical Decision Making ED Course and Treatment: 12/05/16 08:07 Impression: A 71 year old male with pain to right toe. Plan: -- Labs -- Urine culture and Urinalysis -- Reassess and disposition Prior Visits: Notes and results from previous visits were reviewed. Patient last seen in the ED on 10/19/16 and hospitalized for cellulitis on his right foot secondary to an abrasion on his toe. Progress Notes: - Lab Interpretations Lab Results: 12/05/16 07:46 12/05/16 07:46 Lab Results 12/05/16 09:49: Urine Color Yellow, Urine Appearance Clear, Urine pH 6.5, Ur Specific [place] 1.020, Urine Protein Trace H, Urine Glucose (UA) Negative, Urine Ketones Negative, Urine Blood Negative, Urine Nitrate Negative, Urine Bilirubin Negative, Urine Urobilinogen 0.2, Ur Leukocyte Esterase Negative, Urine RBC Negative, Urine WBC 0 - 2, Ur Epithelial Cells 0 - 2, Urine Bacteria Small, Urine Other Usperm 12/05/16 07:46: Sodium 144, Potassium 4.2, Chloride 103, Carbon Dioxide 28, Anion Gap 17, BUN 16, Creatinine 1.3, Est GFR ( Amer) > 60, Est GFR (Non- Af Amer) 54, Random Glucose 91, Calcium 10.2, Total Bilirubin 1.2, AST 24, ALT 33, Alkaline Phosphatase 53, Total Protein 8.0, Albumin 4.6, Globulin 3.4, Albumin/Globulin Ratio 1.4 12/05/16 07:46: WBC 5.0 D, RBC 5.40, Hgb 15.3, Hct 45.9, MCV 85.0, MCH 28.3, MCHC 33.3, RDW 16.0 H, Plt Count 76 L, Neutrophils % (Manual) 69, Lymphocytes % (Manual) 15 L, Monocytes % (Manual) 16 H I have reviewed the lab results: Yes - Scribe Statement The provider has reviewed the documentation as recorded by the Mahesh Meyer Provider Scribe Attestation: All medical record entries made by the Scribe were at my direction and personally dictated by me. I have reviewed the chart and agree that the record accurately reflects my personal performance of the history, physical exam, medical decision making, and the department course for this patient. I have also personally directed, reviewed, and agree with the discharge instructions and disposition. Disposition/Present on Arrival - Present on Arrival Any Indicators Present on Arrival: No History of DVT/PE: No History of Uncontrolled Diabetes: No Urinary Catheter: No History of Decub. Ulcer: No History Surgical Site Infection Following: None - Disposition Have Diagnosis and Disposition been Completed?: Yes Diagnosis: Foot pain Disposition: HOME/ ROUTINE Disposition Time: 10:30 Patient Plan: Discharge Condition: GOOD Discharge Instructions (ExitCare): Chronic Wound Care (ED) Additional Instructions: Thank you for letting us take care of you today. Your provider was Dr. Wu. You were treated for foot pain. The emergency medical care you received today was directed at your acute symptoms. If you were prescribed any medication, please fill it and take as directed. It may take several days for your symptoms to resolve. Return to the Emergency Department if your symptoms worsen, do not improve, or if you have any other problems. Please contact your doctor or call one of the physicians/clinics you have been referred to that are listed on the Patient Visit Information form that is included in your discharge packet. Bring any paperwork you were given at discharge with you along with any medications you are taking to your follow up visit. Our treatment cannot replace ongoing medical care by a primary care provider (PCP) outside of the emergency department. Thank you for allowing the [facility] team to be part of your care today. Keep your toe clean and dry and follow up with Dr. Patel in 2 days for re- evaluation. Referrals: Valerio Patel MD [Primary Care Provider] - Follow up with primary
[2016-12-05 09:54] LABS: NEUTROPHIL 69 % (50.0-70.0)
[2016-12-05 10:15] LABS: PH,URINE 6.5 (4.7-8.0); URINE BILIRUBIN NEGATIVE (NEGATIVE); URINE BLOOD NEGATIVE (NEGATIVE); URINE GLUCOSE (UA) NEGATIVE (NEGATIVE); URINE KETONE NEGATIVE (NEGATIVE); URINE LEUKOCYTE ESTERASE NEGATIVE Leu/uL (NEGATIVE); URINE PROTEIN TRACE mg/dL (<30 mg/dL); URINE UROBILINOGEN 0.2 E.U./dL (<1 E.U./dL)
[2016-12-05 10:16] LABS: URINE APPEARANCE CLEAR (CLEAR); URINE COLOR YELLOW (YELLOW)
[2016-12-05 10:36] LABS: URINE BACTERIA SMALL (NEG); URINE EPITHELIAL CELLS 0 - 2 /hpf (0-5); URINE RBC NEGATIVE /hpf (0-2); URINE WBC 0 - 2 /hpf (0-6)
[2016-12-05 11:14] VITALS: BP 130/73; PULSE 62; TEMP 98; O2SAT 97
== END 2016-12-05 11:20 | disposition home or self-care (01) ==
LOC: ED 05:34
DX: M79.671 Pain in right foot (principal); I10 Essential (primary) hypertension; Z87.891 Personal history of nicotine dependence

== ENCOUNTER 2016-12-06 05:09 | Observation (INO) | payer MEDICARE, MEDICAID ==
[2016-12-06 05:09] VITALS: BMI 29.0
--- NOTE | 2016-12-06 05:46 | ED PDOC ---
Arrival/HPI - General Chief Complaint: GI Problem Time Seen by Provider: 12/06/16 05:36 Historian: Patient - History of Present Illness Narrative History of Present Illness (Text): 12/06/16 05:45 Daniel Gandhi is a 71 year old male, whose past medical history includes hypertension, CAD, hyperlipidemia, and diverticulosis/diverticulitis, who presents to the emergency department complaining of nausea and a few episodes of vomiting tonight. Patient also complaining of mid-abdominal pain. The patient denies any fever, chills, chest pain, shortness of breath, diarrhea, urinary symptoms, back pain, neck pain, headache, dizziness, or any other complaints. Time/Duration: Other (tonight) Symptom Onset: Gradual Symptom Course: Unchanged Activities at Onset: Rest, Light Context: Home Past Medical History - Provider Review Nursing Documentation Reviewed: Yes - Infectious Disease Hx of Infectious Diseases: None - Cardiac Hx Cardiac Disorders: Yes Hx Hypertension: Yes - Pulmonary Hx Respiratory Disorders: No - Neurological Hx Neurological Disorder: Yes HX Cerebrovascular Accident: Yes (TIA) - HEENT Hx HEENT Disorder: No Other/Comment: wearing glasses - Renal Hx Renal Disorder: Yes Hx Pyelonephritis: Yes - Endocrine/Metabolic Hx Endocrine Disorders: No - Hematological/Oncological Hx Blood Transfusions: No - Integumentary Hx Dermatological Disorder: No - Musculoskeletal/Rheumatological Hx Musculoskeletal Disorders: No - Gastrointestinal Hx Gastrointestinal Disorders: No - Genitourinary/Gynecological Hx Genitourinary Disorders: Yes Hx Urinary Tract Infection: Yes - Psychiatric Hx Psychophysiologic Disorder: No Hx Emotional Abuse: No Hx Physical Abuse: No Hx Substance Use: No - Past Surgical History Past Surgical History: No Previous - Surgical History Hx Coronary Stent: Yes - Anesthesia Hx Anesthesia Reactions: No Hx Malignant Hyperthermia: No - Suicidal Assessment Feels Threatened In Home Enviroment: No Family/Social History - Physician Review Nursing Documentation Reviewed: Yes Family/Social History: No Known Family HX Smoking Status: Former Smoker Hx Alcohol Use: No Hx Substance Use: No Allergies/Home Meds Allergies/Adverse Reactions: Allergies No Known Allergies Allergy (Verified 12/04/16 14:38) Home Medications: Home Meds Medication Instructions Recorded Confirmed amLODIPine [Norvasc] 10 mg PO DAILY 10/14/15 12/04/16 Folic Acid 1 mg PO DAILY 12/07/15 12/04/16 Atorvastatin [Lipitor] 20 mg PO DAILY 09/04/16 12/04/16 Finasteride [Proscar] 5 mg PO DAILY 09/04/16 12/04/16 Simvastatin 40 mg PO DAILY 09/04/16 12/04/16 Clopidogrel [Plavix] 75 mg PO DAILY 12/04/16 12/04/16 Review of Systems - Physician Review All systems were reviewed & negative as marked: Yes - Review of Systems Constitutional: Normal. absent: Fevers Eyes: Normal ENT: Normal Respiratory: Normal. absent: SOB, Cough Cardiovascular: Normal. absent: Chest Pain Gastrointestinal: Nausea, Vomiting. absent: Abdominal Pain, Diarrhea Genitourinary Male: Normal. absent: Dysuria, Frequency, Hematuria, Urinary Output Changes Musculoskeletal: Normal. absent: Back Pain, Neck Pain Skin: Normal. absent: Rash Neurological: Normal. absent: Headache, Dizziness Endocrine: Normal Hemo/Lymphatic: Normal Psychiatric: Normal Physical Exam Vital Signs Reviewed: Yes Vital Signs Temp Pulse Resp BP Pulse Ox 12/06/16 05:44 98.7 F 88 16 138/80 98 Temperature: Afebrile Blood Pressure: Normal Pulse: Regular Respiratory Rate: Normal Appearance: Positive for: Well-Appearing, Non-Toxic, Comfortable Pain Distress: None Mental Status: Positive for: Alert and Oriented X 3 - Systems Exam Head: Present: Atraumatic, Normocephalic Pupils: Present: PERRL Extroacular Muscles: Present: EOMI Conjunctiva: Present: Normal Mouth: Present: Moist Mucous Membranes Neck: Present: Normal Range of Motion Respiratory/Chest: Present: Clear to Auscultation, Good Air Exchange. No: Respiratory Distress, Accessory Muscle Use Cardiovascular: Present: Regular Rate and Rhythm, Normal S1, S2. No: Murmurs Abdomen: Present: Normal Bowel Sounds. No: Tenderness, Distention, Peritoneal Signs Back: Present: Normal Inspection Upper Extremity: Present: Normal Inspection. No: Cyanosis, Edema Lower Extremity: Present: Normal Inspection. No: Edema Neurological: Present: GCS=15, CN II-XII Intact, Speech Normal Skin: Present: Warm, Dry, Normal Color. No: Rashes Psychiatric: Present: Alert, Oriented x 3, Normal Insight, Normal Concentration Medical Decision Making ED Course and Treatment: 12/06/16 05:45 Impression: 71 year old male complaining of nausea and vomiting. Plan: -- CT Abdomen and Pelvis w/o contrast -- Labs, lipase -- IV fluids -- Zofran -- Pepcid -- Reassess and disposition Prior Visits: Notes and results from previous visits were reviewed. Progress Notes: 12/06/16 07:[address] Wu, pending labs, CT scan, re-assessment, and final disposition. - Lab Interpretations Lab Results: 12/06/16 06:05 12/06/16 06:05 Lab Results 12/06/16 06:05: WBC 10.4 D, RBC 5.29, Hgb 15.2, Hct 45.2, MCV 85.4, MCH 28.7, MCHC 33.6, RDW 15.9 H, Plt Count 82 L 12/06/16 06:05: Sodium 144, Potassium 4.1, Chloride 101, Carbon Dioxide 25, Anion Gap 22 H, BUN 31 H, Creatinine 1.7 H, Est GFR ( Amer) 48, Est GFR ( Non-Af Amer) 40, Random Glucose 139 H, Calcium 10.6 H, Total Bilirubin 1.6 H, AST 79 H, ALT 35, Alkaline Phosphatase 59, Total Protein 8.7 H, Albumin 5.0 H, Globulin 3.7, Albumin/Globulin Ratio 1.4, Lipase 55 I have reviewed the lab results: Yes - RAD Interpretation Radiology Orders: 12/06/16 06:47 ABD & PELVIS W/O PO OR IV CONT [CT] Stat - Medication Orders Current Medication Orders: Sodium Chloride (Sodium Chloride 0.9%) 1,000 mls @ 100 mls/hr IV .Q10H [facility] Last Admin: 12/06/16 06:21 Dose: 100 mls/hr Sodium Chloride (Sodium Chloride 0.9%) 1,000 mls @ 999 mls/hr IV .Q1H1M STA Stop: 12/06/16 07:34 Discontinued Medications Famotidine (Pepcid) 20 mg IVP STAT STA Stop: 12/06/16 05:54 Last Admin: 12/06/16 06:21 Dose: 20 mg Ondansetron HCl (Zofran Inj) 4 mg IVP ONCE ONE Stop: 12/06/16 05:54 Last Admin: 12/06/16 06:21 Dose: 4 mg - Scribe Statement The provider has reviewed the documentation as recorded by the Mahesh Chen Provider Attestation: All medical record entries made by the Mahesh were at my direction and personally dictated by me. I have reviewed the chart and agree that the record accurately reflects my personal performance of the history, physical exam, medical decision making, and the department course for this patient. I have also personally directed, reviewed, and agree with the discharge instructions and disposition. Disposition/Present on Arrival - Present on Arrival Any Indicators Present on Arrival: No History of DVT/PE: No History of Uncontrolled Diabetes: No Urinary Catheter: No - Disposition Have Diagnosis and Disposition been Completed?: No Diagnosis: Vomiting, Abdominal pain Disposition Time: 07:00 Condition: STABLE
[2016-12-06] MEDS ORDERED: Sodium Chloride 0.9% 1,000 ML IV SCH (06:00)
[2016-12-06 06:21] LABS: HEMATOCRIT 45.2 % (42.0-52.0); MEAN CELL VOLUME 85.4 fL (80.0-105.0); MEAN CORPUSCULAR HEMOGLOBIN 28.7 pg (25.0-35.0); MEAN CORPUSCULAR HGB CONC 33.6 g/dl (31.0-37.0); RED CELL DISTRIBUTION WIDTH 15.9 % (11.5-14.5); WHITE BLOOD COUNT 10.4 10^3/ul (4.5-11.0)
[2016-12-06 06:31] LABS: ALB/GLOB RATIO 1.4 (1.1-1.8); BILIRUBIN,TOTAL 1.6 mg/dL (0.2-1.3); CALCIUM 10.6 mg/dL (8.4-10.5); POTASSIUM 4.1 mmol/L (3.6-5.0); TOTAL PROTEIN 8.7 g/dL (5.8-8.3)
[2016-12-06] MEDS ORDERED: Sodium Chloride 0.9% 1,000 ML IV STA (06:34)
[2016-12-06 06:43] LABS: PLATELET COUNT 82 10^3/uL (120.0-450.0)
--- NOTE | 2016-12-06 09:01 | CT ---
PROCEDURE: CT Abdomen and Pelvis without intravenous contrast HISTORY: pain COMPARISON: 12/22/2015. TECHNIQUE: Technique. Contrast Dose: Radiation dose: Total exam DLP = 453 mGy-cm. This CT exam was performed using one or more of the following dose reduction techniques: Automated exposure control, adjustment of the mA and/or kV according to patient size, and/or use of iterative reconstruction technique. FINDINGS: LOWER THORAX: Unremarkable. LIVER: Unremarkable. No gross lesion or ductal dilatation. GALLBLADDER AND BILE DUCTS: Cholelithiasis. PANCREAS: Unremarkable. No gross lesion or ductal dilatation. SPLEEN: Unremarkable. ADRENALS: Unremarkable. No mass. KIDNEYS AND URETERS: Atrophic right kidney with cystic changes in the 3 millimeter calculus in the lower pole. Resolution of previous noted right hydronephrosis. VASCULATURE: Unremarkable. No aortic aneurysm. BOWEL: Colonic diverticulosis. . No obstruction. No gross mural thickening. APPENDIX: Unremarkable. Normal appendix. PERITONEUM: Unremarkable. No free fluid. No free air. LYMPH NODES: Unremarkable. No enlarged lymph nodes. BLADDER: Unremarkable. REPRODUCTIVE: Unremarkable. BONES: No acute fracture. OTHER FINDINGS: None. IMPRESSION: Atrophic right kidney with cystic changes in the 3 millimeter calculus in the lower pole. . Resolution of previous noted right hydronephrosis. Diverticulosis. Cholelithiasis.
[2016-12-06 09:33] LABS: URINE BILIRUBIN SMALL (NEGATIVE); URINE BLOOD MODERATE (NEGATIVE); URINE GLUCOSE (UA) NEGATIVE (NEGATIVE); URINE KETONE 15 mg/dL (NEGATIVE); URINE LEUKOCYTE ESTERASE NEGATIVE Leu/uL (NEGATIVE); URINE PROTEIN 30 mg/dL (<30 mg/dL); URINE UROBILINOGEN 0.2 E.U./dL (<1 E.U./dL)
[2016-12-06 09:38] LABS: URINE APPEARANCE CLEAR (CLEAR); URINE COLOR YELLOW (YELLOW)
[2016-12-06 09:48] LABS: URINE BACTERIA FEW (NEG); URINE EPITHELIAL CELLS 0 - 2 /hpf (0-5); URINE RBC 0 - 2 /hpf (0-2); URINE WBC 0 - 2 /hpf (0-6)
--- NOTE | 2016-12-06 14:54 | CARD ---
APPROVED REPORT EKG Measurement Heart [id number] <Conclusion> Normal sinus rhythm Left anterior fascicular block Left ventricular hypertrophy with QRS widening and repolarization abnormality Cannot rule out Septal infarct, age undetermined Abnormal ECG
--- NOTE | 2016-12-06 16:35 | CT ---
PROCEDURE: CT HEAD WITHOUT CONTRAST. HISTORY: confusion COMPARISON: None available. TECHNIQUE: Axial computed tomography images were obtained through the head/brain without intravenous contrast. Radiation dose: Total exam DLP = 677 mGy-cm. This CT exam was performed using one or more of the following dose reduction techniques: Automated exposure control, adjustment of the mA and/or kV according to patient size, and/or use of iterative reconstruction technique. FINDINGS: HEMORRHAGE: No intracranial hemorrhage. BRAIN: No mass effect or edema. 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 VENTRICLES: Unremarkable. No hydrocephalus. CALVARIUM: Unremarkable. PARANASAL SINUSES: Unremarkable as visualized. No significant inflammatory changes. MASTOID AIR CELLS: Unremarkable as visualized. No inflammatory changes. OTHER FINDINGS: None. IMPRESSION: No acute hemorrhage.
[2016-12-06] MEDS: Sodium Chloride 0.9% 1,000 ML IV SCH (18:24)
--- NOTE | 2016-12-06 20:49 | HP ---
HISTORY OF PRESENT ILLNESS: The patient is 71 years old, who was recently admitted by me when he had right foot frostbite. The patient has been in [facility]. He was just discharged 3 days ago after h is right foot healed completely. He has been at home and he came to Emergency Room 2 days prior. He was evaluated by the Emergency Room physician. He was sent home. He came again yesterday because o f the foot pain. He was evaluated and sent home and he came the third time complaining of foot pain and complained of not feeling well, not eating that well. So at this point, the patient seems to be confused and disoriented to time and place. He is not capable of living himself. He seems to be deh ydrated, so he is being admitted until social workers help him for disposition plan. He does not hav e any nausea or vomiting. He does complain of decreased appetite. He does not have access to food. PAST MEDICAL HISTORY: Is significant for: 1. Hypertension. 2. Coronary artery disease. 3. Hyperlipidemia. 4. Benign prostatic hypertrophy. ALLERGIES: Not allergic to any medications. MEDICATIONS AT HOME: He is on Percocet as needed. He is on amlodipine 10 mg daily, simvastatin 40 m g daily, folic acid 1 mg daily, Proscar 5 mg daily, Colace 100 mg twice a day, Plavix 75 daily and at orvastatin 20 mg daily. REVIEW OF SYSTEMS: Is significant for being confused, otherwise he is complaining of decreased appet ite. PHYSICAL EXAMINATION: GENERAL: He is awake and alert, communicative. VITAL SIGNS: He is afebrile, pulse 85, respirations 16, blood pressure 142/80. LUNGS: Bilateral fair airflow, no rhonchi or crackle. HEART: S1, S2 audible. ABDOMEN: Soft, nontender, no rebound, no guarding. NEUROLOGIC: He is awake and alert, but confused and disoriented. LABORATORY DATA: WBC 10.4, hemoglobin 15, hematocrit 45, platelet 82. Chemistry: Sodium 144, potas sium 4.1, chloride 101, CO2 of 25, BUN 31, creatinine 1.7, blood sugar 139, calcium 10.6, total bilir ubin 1.6, AST 79, ALT 35. Urinalysis shows moderate blood, negative glucose. ASSESSMENT AND PLAN: 1. Altered mental status. 2. Mild renal insufficiency. 3. Hypertension. 4. Coronary artery disease. 5. Hyperlipidemia. 6. Dementia. PLAN: Will resume his medications and start gentle hydration. I will order for a CT scan of the hea d and I will reevaluate him in the a.m. Yakov Jacobsen MD cc: [id number] TT: 12/06/2016 20:48:21 dn
[2016-12-07] MEDS: Sodium Chloride 0.9% 1,000 ML IV SCH (04:06)
[2016-12-07 08:57] VITALS: RESP 20
[2016-12-07 13:38] LABS: ALB/GLOB RATIO 1.4 (1.1-1.8); ALKALINE PHOSPHATASE 39 U/L (38-133); ALT/SGPT 37 U/L (7-56); AST/SGOT 66 U/L (15-59); BILIRUBIN,TOTAL 1.3 mg/dL (0.2-1.3); BLOOD UREA NITROGEN 24 mg/dL (7-21); CALCIUM 9.4 mg/dL (8.4-10.5); CARBON DIOXIDE 26 mmol/L (21-33); CHLORIDE 102 mmol/L (98-107); GFR AFRICAN-AMERICAN > 60; GLUCOSE,RANDOM 92 mg/dL (70-110); SODIUM 137 mmol/L (132-148); TOTAL PROTEIN 7.1 g/dL (5.8-8.3)
[2016-12-07] MEDS ORDERED: Pneumococcal 23-Valent Vaccine IM ONE (17:35)
[2016-12-07 18:04] VITALS: BP 114/66; PULSE 55; TEMP 98.4; O2SAT 98
--- NOTE | 2016-12-08 07:45 | DS ---
The patient is a 71-year-old, seen and examined, sitting in chair, seems to be much more awake and al ert. He knows where he lives. He knows the time of the year now. PHYSICAL EXAMINATION: VITAL SIGNS: He is afebrile, pulse 46, respirations 20, blood pressure 116/63. LUNGS: Bilateral good airflow, no rhonchi or crackle. HEART: S1, S2 audible. ABDOMEN: Soft, nontender, no rebound, no guarding. NEUROLOGIC: The patient is awake and alert, communicative. Moves all extremities. EXTREMITIES: Right foot is under dressing. LABORATORY EXAMINATION: Repeat labs are pending. The patient had CT scan of the abdomen and pelvis done that shows atrophic right kidney, cystic philip e and 3 mm calculus in the lower pole, resolution of previous noted right hydronephrosis and he does have cholelithiasis and diverticulosis. CT scan of the brain is unremarkable. ASSESSMENT: 1. Questionable altered mental status, seems to be quite awake and alert now. 2. Mild renal insufficiency. 3. Hypertension. 4. Mild dementia. 5. Status post right foot frostbite that is almost completely resolved. PLAN: Repeat Chem-7. If that is improved, he will be discharged home today later on. Yakov Jacobsen MD cc: [phone] TT: 12/08/2016 07:44:46 en
== END 2016-12-07 18:59 | disposition home or self-care (01) ==
LOC: ED 05:09 → ERH 14:58 → 5RSO 17:52
PROVIDERS: ADMIT Internal Medicine; ATTEND Internal Medicine
DX: R41.82 Altered mental status, unspecified (principal); N28.9 Disorder of kidney and ureter, unspecified; I10 Essential (primary) hypertension; F03.90 Unspecified dementia, unspecified severity, without behavioral disturbance, psychotic disturbance, mood disturbance, and anxiety; N26.1 Atrophy of kidney (terminal); N20.0 Calculus of kidney; K80.20 Calculus of gallbladder without cholecystitis without obstruction; K57.90 Diverticulosis of intestine, part unspecified, without perforation or abscess without bleeding; I25.10 Atherosclerotic heart disease of native coronary artery without angina pectoris; T33.821D Superficial frostbite of right foot, subsequent encounter; E78.5 Hyperlipidemia, unspecified; R40.2412 Glasgow coma scale score 13-15, at arrival to emergency department; E86.0 Dehydration; R63.0 Anorexia; N40.0 Benign prostatic hyperplasia without lower urinary tract symptoms; Z79.02 Long term (current) use of antithrombotics/antiplatelets; Z87.891 Personal history of nicotine dependence; Z87.440 Personal history of urinary (tract) infections; Z79.899 Other long term (current) drug therapy; Z23 Encounter for immunization
CPT/HCPCS: 36415; 70450; 74176; 80053; 81001; 83690; 85027; 90732; 93005; 96361; 96374; 96375; 96376; 97161; 99285; C9113; G0009; G0378; G8978; G8979; J2405; J7040

== ENCOUNTER 2016-12-07 19:56 | Observation (INO) | payer MEDICARE, MEDICAID, OTHER ==
[2016-12-07 20:08] VITALS: BMI 28.0
[2016-12-07 20:10] VITALS: RESP 18
--- NOTE | 2016-12-07 21:57 | ED PDOC ---
Arrival/HPI - General Chief Complaint: GI Problem Time Seen by Provider: 12/07/16 20:13 Historian: Patient - History of Present Illness Narrative History of Present Illness (Text): 12/07/16 21:53 Daniel Gandhi is a 71 year old male, whose past medical history includes hypertension, hyperlipidemia, and diverticulosis/diverticulitis, presents to the emergency department complaining of nausea and vomiting since today evening. Also notes of some abdominal discomfort. Denies any diarrhea. Patient was recently admitted and treated for similar symptoms. Denies any fever, chills , chest pain, shortness of breath, back pain, urinary symptoms, or any other complaints at this time. Time/Duration: 4-6 hours Symptom Onset: Gradual Symptom Course: Unchanged Severity Level: Mild Activities at Onset: Light Past Medical History - Provider Review Nursing Documentation Reviewed: Yes - Infectious Disease Hx of Infectious Diseases: None - Cardiac Hx Cardiac Disorders: Yes Hx Hypertension: Yes - Pulmonary Hx Respiratory Disorders: No - Neurological HX Cerebrovascular Accident: Yes (TIA) - HEENT Hx HEENT Disorder: No Other/Comment: wearing glasses - Renal Hx Renal Disorder: Yes Hx Pyelonephritis: Yes - Endocrine/Metabolic Hx Endocrine Disorders: No - Hematological/Oncological Hx Chemotherapy: Yes Other/Comment: Patient unable to explain why he is on chemotherapy, states "something came back irregular and they just wanted to be safe." - Integumentary Hx Dermatological Disorder: No - Musculoskeletal/Rheumatological Hx Falls: No - Gastrointestinal Hx Gastrointestinal Disorders: No - Genitourinary/Gynecological Hx Genitourinary Disorders: Yes Hx Urinary Tract Infection: Yes - Psychiatric Hx Psychophysiologic Disorder: No Hx Emotional Abuse: No Hx Physical Abuse: No Hx Substance Use: No - Past Surgical History Past Surgical History: No Previous - Surgical History Hx Coronary Stent: Yes - Anesthesia Hx Anesthesia Reactions: No Hx Malignant Hyperthermia: No - Suicidal Assessment Feels Threatened In Home Enviroment: No Family/Social History - Physician Review Nursing Documentation Reviewed: Yes Family/Social History: No Known Family HX Smoking Status: Former Smoker Hx Alcohol Use: No Hx Substance Use: No Allergies/Home Meds Allergies/Adverse Reactions: Allergies No Known Allergies Allergy (Verified 12/04/16 14:38) Home Medications: Home Meds Medication Instructions Recorded Confirmed amLODIPine [Norvasc] 10 mg PO DAILY 10/14/15 12/07/16 Folic Acid 1 mg PO DAILY 12/07/15 12/07/16 Atorvastatin [Lipitor] 20 mg PO DAILY 09/04/16 12/07/16 Finasteride [Proscar] 5 mg PO DAILY 09/04/16 12/07/16 Simvastatin 40 mg PO DAILY 09/04/16 12/07/16 Clopidogrel [Plavix] 75 mg PO DAILY 12/04/16 12/07/16 Review of Systems - Physician Review All systems were reviewed & negative as marked: Yes - Review of Systems Constitutional: Normal. absent: Fatigue, Fevers Respiratory: Normal. absent: SOB, Cough Cardiovascular: Normal. absent: Chest Pain Gastrointestinal: Abdominal Pain, Nausea, Vomiting Neurological: Normal. absent: Headache, Dizziness Psychiatric: Normal Physical Exam Vital Signs Reviewed: Yes Vital Signs Temp Pulse Resp BP Pulse Ox 12/08/16 06:00 142/78 12/08/16 04:00 136/77 12/08/16 02:00 84 18 144/74 99 12/08/16 00:00 80 18 12/07/16 22:20 98.9 F 64 18 139/80 98 12/07/16 20:08 98.8 F 70 18 132/70 97 Temperature: Afebrile Blood Pressure: Normal Pulse: Regular Respiratory Rate: Normal Appearance: Positive for: Well-Appearing, Non-Toxic, Comfortable Pain Distress: None Mental Status: Positive for: Alert and Oriented X 3 Finger Stick Blood Glucose: 108 - Systems Exam Head: Present: Atraumatic, Normocephalic Pupils: Present: PERRL Conjunctiva: Present: Normal Mouth: Present: Moist Mucous Membranes Respiratory/Chest: Present: Clear to Auscultation, Good Air Exchange. No: Respiratory Distress, Accessory Muscle Use Cardiovascular: Present: Regular Rate and Rhythm, Normal S1, S2. No: Murmurs Abdomen: Present: Normal Bowel Sounds. No: Tenderness, Distention, Peritoneal Signs, Rebound, Guarding Upper Extremity: Present: Normal Inspection. No: Cyanosis, Edema Lower Extremity: Present: Normal Inspection. No: Edema Neurological: Present: GCS=15, CN II-XII Intact, Speech Normal, Motor Func Grossly Intact, Normal Sensory Function Skin: Present: Warm, Dry, Normal Color. No: Rashes Psychiatric: Present: Alert, Oriented x 3, Normal Insight, Normal Concentration Medical Decision Making ED Course and Treatment: 12/07/16 21:58 Impression: A 71 year old male who presents to the ed complaining of nausea and vomiting associated with some abdominal discomfort. Plan: -- Labs, Lipase -- Pepcid -- IV fluids -- Zofran Progress Notes: 12/08/16 02:04 - Lab Interpretations Lab Results: Lab Results 12/07/16 20:15: POC Glucose (mg/dL) 108 - Medication Orders Current Medication Orders: Sodium Chloride (Sodium Chloride 0.9%) 1,000 mls @ 100 mls/hr IV .Q10H JESSI Last Admin: 12/07/16 22:48 Dose: 100 mls/hr Discontinued Medications Famotidine (Pepcid) 20 mg IVP STAT STA Stop: 12/07/16 22:02 Last Admin: 12/07/16 22:48 Dose: 20 mg Ondansetron HCl (Zofran Inj) 4 mg IVP ONCE ONE Stop: 12/07/16 22:02 Last Admin: 12/07/16 22:48 Dose: 4 mg ED OBSERVATION Discharge: Yes Date of observation admission: 12/07/16 Time of observation admission: 22:00 - Observation admission statement Patient is being placed in observation because:: Abdominal pain - Goals of Observation Goals of observation are:: pending labs, reevaluation and disposition - Progress Note Progress Note: 12/08/16 00:52 Patient is resting comfortably with no new complaints. Stable vital signs. 12/08/16 02:52 Patient is sleeping with stable vital signs. 12/08/16 05:53 Patient is sleeping with stable vitals. 12/08/16 07:16 Pt. w/o any complaints.Rested comfortably throughout the night asymptomatic. - Scribe Statement The provider has reviewed the documentation as recorded by the Mahesh Aly Provider Attestation: All medical record entries made by the Mahesh were at my direction and personally dictated by me. I have reviewed the chart and agree that the record accurately reflects my personal performance of the history, physical exam, medical decision making, and the department course for this patient. I have also personally directed, reviewed, and agree with the discharge instructions and disposition. Disposition/Present on Arrival - Present on Arrival Any Indicators Present on Arrival: No History of DVT/PE: No History of Uncontrolled Diabetes: No Urinary Catheter: No History of Decub. Ulcer: No History Surgical Site Infection Following: None - Disposition Have Diagnosis and Disposition been Completed?: Yes Diagnosis: Gastritis Disposition: HOME/ ROUTINE Disposition Time: 07:17 Patient Plan: Discharge Condition: GOOD
[2016-12-07] MEDS ORDERED: Sodium Chloride 0.9% 1,000 ML IV SCH (22:15)
[2016-12-07 22:21] VITALS: TEMP 98.9
[2016-12-07 22:58] LABS: ALB/GLOB RATIO 1.4 (1.1-1.8); ALKALINE PHOSPHATASE 47 U/L (38-133); ALT/SGPT 43 U/L (7-56); AST/SGOT 80 U/L (15-59); BILIRUBIN,TOTAL 1.1 mg/dL (0.2-1.3); BLOOD UREA NITROGEN 24 mg/dL (7-21); CALCIUM 9.6 mg/dL (8.4-10.5); CARBON DIOXIDE 26 mmol/L (21-33); CHLORIDE 103 mmol/L (98-107); GFR AFRICAN-AMERICAN > 60; GLUCOSE,RANDOM 101 mg/dL (70-110); LIPASE 254 U/L (23-300); POTASSIUM 3.9 mmol/L (3.6-5.0); SODIUM 139 mmol/L (132-148); TOTAL PROTEIN 7.4 g/dL (5.8-8.3)
[2016-12-07 23:02] LABS: HEMATOCRIT 41.8 % (42.0-52.0); MEAN CELL VOLUME 84.4 fL (80.0-105.0); MEAN CORPUSCULAR HEMOGLOBIN 28.9 pg (25.0-35.0); MEAN CORPUSCULAR HGB CONC 34.2 g/dl (31.0-37.0); PLATELET COUNT 60 [, 10^3/uL] (120.0-450.0); RED CELL DISTRIBUTION WIDTH 15.8 % (11.5-14.5); WHITE BLOOD COUNT 7.6 [, 10^3/ul] (4.5-11.0)
[2016-12-08 07:02] VITALS: BP 142/78; PULSE 84; O2SAT 99
== END 2016-12-08 07:15 | disposition home or self-care (01) ==
LOC: ED 19:56 → EROBSV 22:00
PROVIDERS: ADMIT Emergency Medicine; ATTEND Emergency Medicine
DX: K29.70 Gastritis, unspecified, without bleeding (principal)
CPT/HCPCS: 80053; 82948; 83690; 85027; 96374; 96375; 99283; G0378; J2405; J7040

== ENCOUNTER 2016-12-08 12:33 | Inpatient (IN) | payer MEDICARE, MEDICAID, OTHER ==
[2016-12-08] MEDS ORDERED: Sodium Chloride 0.9% 1,000 ML IV STA ×2 (12:49→14:22)
--- NOTE | 2016-12-08 12:53 | ED PDOC ---
Arrival/HPI - General Chief Complaint: GI Problem Time Seen by Provider: 12/08/16 12:33 Historian: Patient - Critical Care Critical Care Minutes: 30 minutes - History of Present Illness Narrative History of Present Illness (Text): 12/08/16 12:58 A 71 year old male, whose past medical history includes hypertension, coronary artery disease, hyperlipidemia, TIA and thrombocytopenia, presents to the emergency department complaining of abdominal pain and one bloody bowel mpvement today. Patient has been to the emergency department previously for similar symptoms. Patient reports diarrhea (2 times a day), but denies fever or any other complaints at this time. Symptom Onset: Sudden Symptom Course: Unchanged Activities at Onset: Rest Context: Home Associated Symptoms (Text): diarrhea Past Medical History - Provider Review Nursing Documentation Reviewed: Yes - Infectious Disease Hx of Infectious Diseases: None - Cardiac Hx Cardiac Disorders: Yes Hx Hypertension: Yes - Pulmonary Hx Respiratory Disorders: No - Neurological HX Cerebrovascular Accident: Yes (TIA) - HEENT Hx HEENT Disorder: No Other/Comment: glasses - Renal Hx Renal Disorder: Yes Hx Pyelonephritis: Yes - Endocrine/Metabolic Hx Endocrine Disorders: No - Hematological/Oncological Hx Chemotherapy: Yes Other/Comment: Patient unable to explain why he is on chemotherapy, states "something came back irregular and they just wanted to be safe." (from previous) - Integumentary Hx Dermatological Disorder: Yes Other/Comment: Rodrigues bite to R big toe - Musculoskeletal/Rheumatological Hx Musculoskeletal Disorders: No Hx Falls: No - Gastrointestinal Hx Gastrointestinal Disorders: No - Genitourinary/Gynecological Hx Genitourinary Disorders: Yes Hx Urinary Tract Infection: Yes - Psychiatric Hx Psychophysiologic Disorder: No Hx Emotional Abuse: No Hx Physical Abuse: No Hx Substance Use: No - Past Surgical History Past Surgical History: No Previous - Surgical History Hx Coronary Stent: Yes - Anesthesia Hx Anesthesia: Yes Hx Anesthesia Reactions: No Hx Malignant Hyperthermia: No - Suicidal Assessment Feels Threatened In Home Enviroment: No Family/Social History - Physician Review Nursing Documentation Reviewed: Yes Family/Social History: No Known Family HX Smoking Status: Former Smoker Hx Alcohol Use: No Hx Substance Use: No Allergies/Home Meds Allergies/Adverse Reactions: Allergies No Known Allergies Allergy (Verified 12/08/16 12:41) Home Medications: Home Meds Medication Instructions Recorded Confirmed amLODIPine [Norvasc] 10 mg PO DAILY 10/14/15 12/08/16 Folic Acid 1 mg PO DAILY 12/07/15 12/08/16 Atorvastatin [Lipitor] 20 mg PO DAILY 09/04/16 12/08/16 Finasteride [Proscar] 5 mg PO DAILY 09/04/16 12/08/16 Simvastatin 40 mg PO DAILY 09/04/16 12/08/16 Clopidogrel [Plavix] 75 mg PO DAILY 12/04/16 12/08/16 Review of Systems - Physician Review All systems were reviewed & negative as marked: Yes - Review of Systems Constitutional: Normal. absent: Fevers Eyes: Normal ENT: Normal Respiratory: Normal Cardiovascular: Normal Gastrointestinal: Abdominal Pain, Diarrhea, Hematochezia Musculoskeletal: Normal Skin: Normal Neurological: Normal Endocrine: Normal Hemo/Lymphatic: Normal Psychiatric: Normal Physical Exam Vital Signs Reviewed: Yes Vital Signs Temp Pulse Resp BP Pulse Ox 12/08/16 13:01 98.0 F 81 18 142/87 96 Temperature: Afebrile Blood Pressure: Normal Pulse: Regular Respiratory Rate: Normal Appearance: Positive for: Well-Appearing, Non-Toxic, Comfortable Pain Distress: None Mental Status: Positive for: Alert and Oriented X 3 - Systems Exam Head: Present: Atraumatic, Normocephalic Pupils: Present: PERRL Extroacular Muscles: Present: EOMI Conjunctiva: Present: Normal Mouth: Present: Moist Mucous Membranes Neck: Present: Normal Range of Motion Respiratory/Chest: Present: Clear to Auscultation, Good Air Exchange. No: Respiratory Distress, Accessory Muscle Use Cardiovascular: Present: Regular Rate and Rhythm, Normal S1, S2. No: Murmurs Abdomen: Present: Normal Bowel Sounds. No: Tenderness, Distention, Peritoneal Signs Rectal: Present: Other (guaiac positive; blood in stool) Upper Extremity: Present: Normal Inspection. No: Cyanosis, Edema Lower Extremity: Present: Other (excoriations inner thigh bilateral, no warmth, no edema; R toe frostbite) Neurological: Present: GCS=15, CN II-XII Intact, Speech Normal Skin: Present: Warm, Dry, Normal Color. No: Rashes Psychiatric: Present: Alert, Oriented x 3, Normal Insight, Normal Concentration Medical Decision Making ED Course and Treatment: 12/08/16 12:50 Impression: A 71 year old male with thrombocytopenia complaining of abdominal pain. Differential Diagnosis included but are not limited to: gastrointestinal bleed vs. diverticulosis Plan: -- EKG -- chest xray -- Radiology abdomen -- Labs -- Urinalysis -- Protonix, IV fluids -- Reassess and disposition Prior Visits: Notes and results from previous visits were reviewed. Patient last reported to emergency department yesterday for evaluation of nausea and vomiting associated with similar abdominal discomfort and was discharged this morning. Progress Notes: EKG: Ordered, reviewed, and independently interpreted the EKG. Rate : 78 BPM Rhythm : NSR Interpretation : LVH, PVCs, left anterior fascicular block Comparison : Similar to previous EKG on 12/06/16 12/08/16 14:23 Patients' labs reviewed. Hgb normal. Patient is actively bleeding from his rectum. Will continue IVF and place on observation for GI bleed. I discussed case with Dr. Jacobsen who recommended Dr. Castañeda for GI. - Lab Interpretations Lab Results: 12/08/16 13:05 12/08/16 13:05 Lab Results 12/08/16 13:05: Blood Type O POSITIVE, Antibody Screen Negative, BBK History Checked Patient has bt 12/08/16 13:05: Sodium 143, Potassium 4.2, Chloride 103, Carbon Dioxide 26, Anion Gap 18, BUN 17, Creatinine 1.2, Est GFR ( Amer) > 60, Est GFR (Non- Af Amer) 60, Random Glucose 97, Calcium 10.2, Total Bilirubin 1.5 H, AST 87 H, ALT 43, Alkaline Phosphatase 55, Total Protein 8.4 H, Albumin 4.8, Globulin 3.5 , Albumin/Globulin Ratio 1.4, Lipase 186 12/08/16 13:05: PT 12.5 H, INR 1.16 H, APTT 27.4 12/08/16 13:05: WBC 9.3 D, RBC 5.51, Hgb 15.9, Hct 46.7, MCV 84.8, MCH 28.9, MCHC 34.0, RDW 15.5 H, Plt Count 80 L, Gran % 80.6 H, Lymph % (Auto) 10.4 L, [place] % (Auto) 8.8 H, Eos % (Auto) 0.2 L, Baso % (Auto) 0.0, Gran # 7.46 H, Lymph # 1.0 L, [place] # 0.8 H, Eos # 0.0, Baso # 0.00 I have reviewed the lab results: Yes - RAD Interpretation Radiology Orders: 12/08/16 12:54 CHEST PORTABLE [RAD] Stat ABDOMEN (FLAT PLATE) 1VIEW [RAD] Stat - EKG Interpretation Interpreted by ED Physician: Yes Type: 12 lead EKG - Medication Orders Current Medication Orders: Sodium Chloride (Sodium Chloride 0.9%) 1,000 mls @ 100 mls/hr IV .Q10H STA Stop: 12/08/16 22:48 Last Admin: 12/08/16 13:17 Dose: 100 mls/hr Sodium Chloride (Sodium Chloride 0.9%) 1,000 mls @ 100 mls/hr IV .Q10H STA Stop: 12/09/16 00:21 Ondansetron HCl (Zofran Inj) 4 mg IVP Q4H PRN PRN Reason: Nausea/Vomiting Discontinued Medications Pantoprazole Sodium (Protonix Inj) 40 mg IVP STAT STA Stop: 12/08/16 12:50 Last Admin: 12/08/16 13:16 Dose: 40 mg - Scribe Statement The provider has reviewed the documentation as recorded by the Nadeemibdean Rasheed All medical record entries made by the Nadeemibdean were at my direction and personally dictated by me. I have reviewed the chart and agree that the record accurately reflects my personal performance of the history, physical exam, medical decision making, and the department course for this patient. I have also personally directed, reviewed, and agree with the discharge instructions and disposition. Disposition/Present on Arrival - Present on Arrival Any Indicators Present on Arrival: No History of DVT/PE: No History of Uncontrolled Diabetes: No Urinary Catheter: No History of Decub. Ulcer: No History Surgical Site Infection Following: None - Disposition Have Diagnosis and Disposition been Completed?: Yes Diagnosis: GI bleed Disposition: HOSPITALIZED Disposition Time: 14:24 Patient Plan: Observation Patient Problems: Current Active Problems Problem Status Onset Gastritis Acute Condition: FAIR
[2016-12-08 13:19] LABS: ADD MANUAL DIFF? NO
[2016-12-08 13:23] LABS: EOS % 0.2 % (1.5-5.0); GRAN # 7.46 (1.4-6.5); GRAN % 80.6 % (50.0-68.0); HEMATOCRIT 46.7 % (42.0-52.0); LYMPH % 10.4 % (22.0-35.0); MEAN CELL VOLUME 84.8 fL (80.0-105.0); MEAN CORPUSCULAR HEMOGLOBIN 28.9 pg (25.0-35.0); MONO # 0.8 (0.1-0.6); MONO % 8.8 % (1.0-6.0); PLATELET COUNT 80 10^3/uL (120.0-450.0); RED CELL DISTRIBUTION WIDTH 15.5 % (11.5-14.5); WHITE BLOOD COUNT 9.3 10^3/ul (4.5-11.0)
[2016-12-08 13:31] LABS: ALB/GLOB RATIO 1.4 (1.1-1.8); ALKALINE PHOSPHATASE 55 U/L (38-133); ALT/SGPT 43 U/L (7-56); AST/SGOT 87 U/L (15-59); BILIRUBIN,TOTAL 1.5 mg/dL (0.2-1.3); BLOOD UREA NITROGEN 17 mg/dL (7-21); CALCIUM 10.2 mg/dL (8.4-10.5); CARBON DIOXIDE 26 mmol/L (21-33); CHLORIDE 103 mmol/L (98-107); GFR AFRICAN-AMERICAN > 60; GLUCOSE,RANDOM 97 mg/dL (70-110); LIPASE 186 U/L (23-300); POTASSIUM 4.2 mmol/L (3.6-5.0); SODIUM 143 mmol/L (132-148); TOTAL PROTEIN 8.4 g/dL (5.8-8.3)
[2016-12-08 13:33] LABS: INR 1.16 (0.93-1.08); PARTIAL THROMBOPLASTIN TIME 27.4 Seconds (23.7-30.8)
[2016-12-08 14:30] LABS: PH,URINE 6.5 (4.7-8.0); URINE BILIRUBIN NEGATIVE (NEGATIVE); URINE BLOOD TRACE-LYSED (NEGATIVE); URINE GLUCOSE (UA) NEGATIVE (NEGATIVE); URINE KETONE TRACE mg/dL (NEGATIVE); URINE LEUKOCYTE ESTERASE NEGATIVE Leu/uL (NEGATIVE); URINE PROTEIN NEGATIVE mg/dL (<30 mg/dL); URINE UROBILINOGEN 0.2 E.U./dL (<1 E.U./dL)
[2016-12-08 14:31] LABS: URINE APPEARANCE CLEAR (CLEAR); URINE COLOR LIGHT YELLOW (YELLOW)
[2016-12-08 14:40] LABS: URINE BACTERIA NEG (NEG); URINE EPITHELIAL CELLS 0 - 2 /hpf (0-5); URINE RBC NEGATIVE /hpf (0-2); URINE WBC 0 - 2 /hpf (0-6)
--- NOTE | 2016-12-08 16:45 | RAD ---
HISTORY: gi bleed COMPARISON: 12/04/2016 FINDINGS: LUNGS: No active pulmonary disease. PLEURA: No significant pleural effusion identified, no pneumothorax apparent. CARDIOVASCULAR: Normal. OSSEOUS STRUCTURES: No significant abnormalities. VISUALIZED UPPER ABDOMEN: Normal. OTHER FINDINGS: Moderate aortic tortuosity IMPRESSION: No active disease.
--- NOTE | 2016-12-08 16:46 | RAD ---
HISTORY: gi bleed COMPARISON: No prior. FINDINGS: BOWEL: Normal. No obstruction. No free air. BONES: Normal. OTHER FINDINGS: None. IMPRESSION: No active disease.
[2016-12-08] MEDS ORDERED: Iohexol 240 (50 ml) ONE (17:42)
[2016-12-08] MEDS ORDERED: Peg-Electrolyte Oral Soln 4L (Golytely) PO ONE (17:44)
[2016-12-08 20:18] LABS: HEMATOCRIT 41.8 % (42.0-52.0)
--- NOTE | 2016-12-08 20:23 | HP ---
HISTORY OF PRESENT ILLNESS: The patient is a 71-year-old who was just discharged yesterday after he was found to be dehydrated. The patient came back today complaining of abdominal pain. The patient states he had abdominal discomfort and after that he had a large bowel movement that had blood in it, so he came to Emergency Room for further evaluation, although on today's visit, he does not seem to be in any pain at this point, but not sure if his rectal bleeding was true or just because of his soc ial issue he keeps on coming back to Emergency Room. He states he had diarrhea twice, but did not mendez ve any fever or chills. No vomiting. PAST MEDICAL HISTORY: Significant for: 1. Coronary artery disease. 2. Hypertension. 3. Hyperlipidemia. 4. History of thrombocytopenia. 5. Recent admission for right foot frostbite. ALLERGIES: Not allergic to any medications. MEDICATIONS AT HOME: He is on amlodipine 10 mg daily, simvastatin 40 mg daily, folic acid 1 mg daily , Proscar 5 mg daily, Colace 100 mg twice a day, Plavix 75 daily, Lipitor 20 mg daily. SOCIAL HISTORY: He used to be a heavy smoker before. Denies alcohol or drug use. REVIEW OF SYSTEMS: Significant for complaint of intermittent abdominal discomfort, but no more diarr hea. PHYSICAL EXAMINATION: GENERAL: He is awake and alert, communicative. VITAL SIGNS: He is afebrile, pulse 115, followup is , respirations 20, blood pressure 164/92. LUNGS: Bilateral fair airflow, no rhonchi or crackle. HEART: S1, S2 audible. No murmur. ABDOMEN: Soft, nontender, no rebound, no guarding. NEUROLOGIC: He is awake and alert, communicative. LABORATORY DATA: WBC is 9.3, hemoglobin 15.9, hematocrit 46, platelets of 80. Chemistry: Sodium 14 3, potassium 4.2, chloride 103, CO2 26, BUN 17, creatinine 1.2, blood sugar of 97, total bilirubin 1. 5, AST 87, ALT 43, total protein 8.4. Urinalysis shows lysed blood. His CT scan of the abdomen and pelvis is pending. X-ray chest is negative. Abdominal x-ray is negative. ASSESSMENT: 1. Abdominal pain, etiology undetermined. Rectal bleeding as per patient. Rule out AVM, rule out d iverticulosis or internal hemorrhoid. A possibility is, since he is thrombocytopenic and on Plavix, AVM. 2. Hypertension. 3. Hyperlipidemia. 4. Coronary artery disease. PLAN: The patient will be started on IV fluid. Will give him clear liquid. We will follow up his C BC at 4:00 and then will follow up CBC and CMP in a.m. Dr. Reese has been consulted. We will ree valuate the patient in a.. Yakov Jacobsen MD cc: [phone] TT: 12/08/2016 20:23:31 lety
[2016-12-08 20:26] VITALS: BMI 18.0
--- NOTE | 2016-12-08 23:11 | CT ---
EXAM: CT Abdomen and Pelvis Without Intravenous Contrast CLINICAL HISTORY: 71 years old, male; Pain; Abdominal pain; Acute; Additional info: Rectal bleeding TECHNIQUE: Axial computed tomography images of the abdomen and pelvis without intravenous contrast. This CT exam was performed using one or more of the following dose reduction techniques: automated exposure control, adjustment of the mA and/or kV according to patient size, and/or use of iterative reconstruction technique. Coronal and sagittal reformatted images were created and reviewed. COMPARISON: CT - 12/06/2016, 12/18/2015. FINDINGS: Limitations: Lack of intravenous contrast. Lower thorax: Minimal atelectasis/scarring. Coronary artery calcifications. ABDOMEN: Liver: Unremarkable. Gallbladder and bile ducts: Calcified gallstone. No ductal dilation. Pancreas: Unremarkable. No ductal dilation. Spleen: Borderline splenomegaly. Adrenals: No mass. Kidneys and ureters: Atrophic RIGHT kidney with cystic changes, grossly stable. Small calculus within RIGHT kidney. Mild pelviectasis of RIGHT kidney. Stomach and bowel: Scattered diverticula within colon. Small elongated outpouching along distal sigmoid colon, grossly stable from 12/06/2016. Previous catheter noted within this region on 12/18/2015. Minimal stranding within adjacent fat, grossly unchanged. No definite mural thickening. No obstruction. Appendix: No findings to suggest acute appendicitis. PELVIS: Bladder: Unremarkable. No stones. Reproductive: Unremarkable as visualized. ABDOMEN and PELVIS: Intraperitoneal space: No significant fluid collection. No free air. Bones/joints: No acute fracture. Soft tissues: Tiny umbilical hernia containing fat. Vasculature: [id number] atherosclerotic disease. No aortic aneurysm. Lymph nodes: No pathologically enlarged lymph nodes. Tubes, lines and devices: IMPRESSION: 1. Minimal stranding within pelvis about distal sigmoid colon, nonspecific but grossly unchanged. Clinical correlation is needed. 2. Cholelithiasis. 3. Incidental/non-acute findings are described above.
--- NOTE | 2016-12-09 03:06 | CON ---
DATE: 12/08/2016 HISTORY OF PRESENT ILLNESS: This patient was seen and evaluated earlier today in the Emergency Room. This is a 71-year-old patient with a past medical history of coronary artery disease, hypertension, dyslipidemia, thrombocytopenia , recently discharged from the hospital. Came to the Emergency Room complaining of abdominal discomfort and also has loose bowel movements. Has noticed a large amount of bleeding per rectum. He did not have any further episodes of bleeding in the Emergency Room. No complaints of vomiting blood. Reports he described this like maroon stool or bright red blood. No melena. PAST MEDICAL HISTORY: As above. SOCIAL HISTORY: He was ex-smoker. Denies alcohol use. REVIEW OF SYSTEMS: Positive as above. Other systems reviewed. ALLERGIES: No known drug allergy. PHYSICAL EXAMINATION: GENERAL: The patient is lying on the bed, not in acute distress. VITAL SIGNS: Temperature is 98.2, pulse rate 115, blood pressure 164/92, respirations 20, O2 sat 98%. HEENT: Atraumatic, anicteric. NECK: Supple. HEART: S1, S2 heard. LUNGS: Bilateral air entry present. ABDOMEN: Soft. There is no tenderness. EXTREMITIES: No edema. No cyanosis. LABORATORY DATA: Chemistry shows a total bilirubin of 1.7, ALT is mildly elevated at 87, hemoglobin 15.9, hematocrit 46.7, WBC 9.3. IMPRESSION: This 71-year-old patient now presents to the Emergency Room with complaints of loose bowel movement twice and also bright red blood per rectum. His other past medical history is significant for coronary artery disease, dyslipidemia. PLAN: 1. We will continue to closely follow up his care. Meanwhile, we will empirically have the patient on Protonix 40 mg daily. 2. Followup of the hemoglobin and hematocrit. 3. The patient is requested for a CT scan of the abdomen and pelvis to further evaluate the bleeding and abdominal discomfort, rule out any active colitis. Aleksandr Reese MD cc: [phone] TT: 12/09/2016 03:06:17 Confirmation # [id number] Dictation # [id number] kareem HERNDON
[2016-12-09] MEDS ORDERED: Peg-Electrolyte Oral Soln 4L (Golytely) PO ONE (06:00)
[2016-12-09 06:33] LABS: HEMATOCRIT 41.5 % (42.0-52.0); MEAN CORPUSCULAR HEMOGLOBIN 28.5 pg (25.0-35.0); MEAN CORPUSCULAR HGB CONC 33.5 g/dl (31.0-37.0); PLATELET COUNT 59 10^3/uL (120.0-450.0); RED CELL DISTRIBUTION WIDTH 15.8 % (11.5-14.5); WHITE BLOOD COUNT 6.3 10^3/ul (4.5-11.0)
[2016-12-09 06:45] LABS: ADD MANUAL DIFF? YES
[2016-12-09 06:54] LABS: ALB/GLOB RATIO 1.3 (1.1-1.8); ALKALINE PHOSPHATASE 44 U/L (38-133); ALT/SGPT 36 U/L (7-56); AST/SGOT 46 U/L (15-59); BILIRUBIN,TOTAL 1.4 mg/dL (0.2-1.3); BLOOD UREA NITROGEN 11 mg/dL (7-21); CALCIUM 9.5 mg/dL (8.4-10.5); CARBON DIOXIDE 29 mmol/L (21-33); CHLORIDE 103 mmol/L (98-107); GFR AFRICAN-AMERICAN > 60; GLUCOSE,RANDOM 86 mg/dL (70-110); POTASSIUM 3.7 mmol/L (3.6-5.0); SODIUM 141 mmol/L (132-148); TOTAL PROTEIN 6.7 g/dL (5.8-8.3)
--- NOTE | 2016-12-09 07:53 | CARD ---
APPROVED REPORT EKG Measurement Heart [id number] <Conclusion> RSR APC LAD, possible LAHB IVCD PRWP ASMI, age unknown STTW changes c/w ischemia
[2016-12-09 08:57] LABS: BAND 3 % (0-2); NEUTROPHIL 71 % (50.0-70.0)
[2016-12-09 08:58] LABS: ANISOCYTOSIS SLIGHT; PLATELET ESTIMATE LOW (NORMAL)
--- NOTE | 2016-12-09 12:43 | PN ---
DATE: 12/09/2016 The patient is a 71-year-old, seen and examined, who came in yesterday. He stated he has rectal blee ding. Denies any abdominal pain and no complaint of nausea or vomiting. Being prepped for colonosco py today. He was found to have EKG changes, although I spoke to Dr. Thorpe. These are old EKG philip es. He is cleared to go for endoscopy. PHYSICAL EXAMINATION: GENERAL: He is awake and alert, somewhat confused. VITAL SIGNS: He is afebrile, pulse 50, respirations 20, blood pressure 131/71. LUNGS: Bilateral fair airflow. No rhonchi or crackle. HEART: S1, S2 audible. ABDOMEN: Soft, nontender. No rebound, no guarding. NEUROLOGIC: He is awake and alert, communicative. LABORATORY: WBC 12.5, hemoglobin ____. PT 12.5, INR 1.16. Chemistry: Sodium 141, potassium 3.7, c hloride 103, CO2 29, BUN 11, creatinine 1.1, blood sugar of 56. ASSESSMENT AND PLAN: 1. Rectal bleeding, etiology undetermined. 2. History of coronary artery disease, status post angioplasty in remote past. 3. Hypertension. 4. Hyperlipidemia. 5. Mild dementia. PLAN: The patient is prepped for colonoscopy today. He is evaluated by Dr. Thorpe and being cleared for the procedure. Will make further recommendation after the colonoscopy report is available. Yakov Jacobsen MD cc: [phone] TT: 12/09/2016 12:42:28 Confirmation # [id number] Dictation # [id number] mn
--- NOTE | 2016-12-09 14:11 | PN ---
DATE: 12/09/2016 Seen and examined at the bedside earlier today. The patient went for CT scan of abdomen and pelvis a nd that showed cholelithiasis and some minimal stranding within the pelvis of the distal sigmoid, non specific, but grossly unchanged. No suggestion of acute appendicitis or obstruction. The patient wa s started on GoLYTELY prep at 6, but the patient is reported to have a soft bowel movement. The tin ent denies any bleeding last night or any this morning and none is reported per nursing staff. Denie s shortness of breath or chest pain. VITAL SIGNS: Temperature is 98, blood pressure 131/71, pulse 50, respirations 20. LABORATORY DATA: WBC is 6.3, H and H is 13.9 and 41.5. His platelet count is 59, the manual is 60. Chemistry: Sodium 141, K is 3.7, BUN is 11, creatinine is 1.3. Total bilirubin is 1.4, AST 46, ALT 36, alkaline phosphatase is 44. PHYSICAL EXAMINATION: HEENT: Sclerae are anicteric. NECK: Supple. CARDIAC: S1, S2. LUNGS: Decreased breath sounds but good air entry, no rales or wheeze. ABDOMEN: With bowel sounds, soft, nontender. No rebound or guarding. EXTREMITIES: No edema. NEUROLOGIC: Awake, alert, and oriented. ASSESSMENT: The patient came with rectal bleeding, complaint of loose bowel movement. He has a hist ory of coronary artery disease. Is on Plavix, which is currently on hold. CT scan with no acute fin dings. We were concerned with ischemic colitis. History of hypertension, hyperlipidemia, and felton ry artery disease, status post angioplasty. PLAN: The patient to be prepped for colonoscopy today. He did have an EKG done on admission, which showed some changes. He was seen by Dr. Thorpe and is cleared for colonoscopy. Appreciate cardiac i nput. The patient had poor prep. We will hold the procedure for today. The patient will be placed back on clear liquid diet, monitor H and H. Continue GI prophylaxis. The patient will be reprepped. Spoke to the nursing staff and discussed with the patient. The patient was seen and case discussed with Dr. Reese. Bettie FISHER cc: [phone] TT: 12/09/2016 14:10:29 Confirmation # [id number] Dictation # [id number] rn
--- NOTE | 2016-12-09 14:55 | CON ---
DATE: 12/09/2016 The patient is in room 262, bed 2. REASON FOR CONSULTATION: Coronary artery disease, history of angioplasty and stent insertion, rectal bleeding. HISTORY OF PRESENT ILLNESS: The patient is a 71-year-old male admitted with a history that he was mendez ving rectal bleeding. The patient has known case of coronary artery disease. The patient is well kn own to us. We have put multiple stents in him, a total of 7 stents. Last angioplasty stent was 2006 . The patient known to have hypertension, high cholesterol, low platelet, rheumatoid arthritis. The patient denies any chest pain, shortness of breath, or palpitation. PAST MEDICAL HISTORY: As mentioned before, coronary artery disease. We have inserted a total 7 sten ts. Last angioplasty and stent was 2006 and last cardiac catheterization was 2007. In 2007, cathete rization showed coronary artery disease, but with mild blockages which did not need any intervention. Hypertension, hyperlipidemia, history of thrombocytopenia, history of rheumatoid arthritis. Recent ly, patient was admitted for right foot frostbite. ALLERGIES: The patient denies any allergies. HOME MEDICATIONS: Included simvastatin 40 mg p.o. daily, folic acid 1 mg daily, Proscar 5 mg daily, amlodipine 10 mg daily, Colace 100 mg b.i.d., Plavix 75 mg daily, Lipitor 20 mg daily. In our office records, the patient was also supposed to be on atenolol 50 mg p.o. daily. FAMILY HISTORY: Not significant. PERSONAL HISTORY: Denies smoking now. He used to be a heavy smoker in the past. Denies alcohol abu se. PHYSICAL EXAMINATION: VITAL SIGNS: Blood pressure 131/71, respirations 20, pulse 58, temperature 98. HEENT: Head is normocephalic. Eyes: Pupils are normal. Conjunctivae are normal. Nose and throat normal. NECK: JVP low. Carotids equal. THORAX: AP diameter normal. LUNGS: Clear. CARDIOVASCULAR: S1, S2. No rub. No click. ABDOMEN: Soft. No organomegaly. Bowel sounds normal. EXTREMITIES: No clubbing, no cyanosis. LABORATORY DATA: WBC 6.3, hemoglobin 13.9, yesterday hemoglobin was 15.9, hematocrit 41.5, yesterday it was 46.7, platelets yesterday 80 and today is 59, manual platelets are 60. Chest x-ray, no signi ficant abnormality. EKG showed regular sinus rhythm, Q in V2, V3, left anterior hemiblock. T inversi on also noted, Q in V2, V3 suggestive of old anteroseptal OH. Sodium 141, potassium 3.7, BUN 11, cre atinine 1.1, random glucose 86, calcium 9.5, total bilirubin 1.4, AST 46, ALT 36. Total protein 6.7, albumin 3.8. DIAGNOSES: Rectal bleeding, coronary artery disease, hypertension, hyperlipidemia, thrombocytopenia, rheumatoid arthritis. PLAN: Clinically, the patient's cardiac status is stable, no cardiac symptoms, and I compared his EK G this time with the EKG of 02/19/2016, there is no change. So from cardiac point of view, the patient can go for any GI procedure at a moderate risk. We will continue folic acid 1 mg daily, atorvastati n 20 daily, amlodipine 10 daily, Proscar 5 mg daily, Protonix 40 mg IV daily. We will not put on bet a nam because the patient already has bradycardia and we will continue to monitor with you and sintia harvey with you. Lizzie Thorpe MD cc: [phone] TT: 12/09/2016 14:55:05 Confirmation # [id number] Dictation # [id number] lety
--- NOTE | 2016-12-10 01:10 | PN ---
DATE: 12/09/2016 ADDENDUM: This is an addendum to the GI progress report dictated by Bettie Mccarthy NP. The patient had a bowel movement, semi-formed stool. No bleeding noticed. The patient did give a history of bleeding per rectum. Hemoglobin is stable at 13.9. The patient will be rescheduled for colonoscopy in the a.m. Platelet count is 59. Will consider diagnostic colonoscopy initially. Aleksandr Reese MD cc: [id number] TT: 12/10/2016 01:10:26 Confirmation # [id number] Dictation # [id number] kareem HERNDON
--- NOTE | 2016-12-10 09:31 | PN ---
DATE: 12/10/2016 REASON FOR CONSULTATION AND FOLLOWUP: Preop evaluation for possible endoscopy, colonoscopy, admitted with rectal bleeding, history of coronary artery disease, status post PTCA in the past. BRIEF CLINICAL HISTORY: This is a 71-year-old male with past medical history significant for coronar y artery disease, last stent 2006, multiple stents in the past, history of rheumatoid arthritis, hype rlipidemia, low platelets, hypertension, admitted with rectal bleeding requiring colonoscopy and endo scopy. Last catheterization 2007 showed coronary artery disease, patent stent. Medical treatment re commended. The patient denies any chest pain, shortness of breath, any palpitation. PHYSICAL EXAMINATION: VITAL SIGNS: Temperature afebrile, heart rate 63, blood pressure 144/77. HEENT: PERRLA. Extraocular muscles intact. NECK: Supple. No carotid bruits. No thyromegaly. CHEST: Clear to auscultation. HEART: S1, S2 regular. ABDOMEN: Soft. EXTREMITIES: Clubbing and cyanosis negative. BLOOD WORKUP: WBC 6.3, hemoglobin 13.9, hematocrit 41.5, platelet count 59. Chemistry shows sodium 141, potassium 3.7, chloride 103, carbon dioxide 29, anion gap of 13, BUN 11, creatinine 1.1. Platel et 60. IMPRESSION: History of thrombocytopenia, history of coronary artery disease, history of stent, last stent in 2006. Last catheterization 2007, patent stent. Hypertension, hyperlipidemia. The patient was on Plavix before came into the hospital. Rectal bleeding, history of rheumatoid arthritis, histo ry of thrombocytopenia. Clinically, the patient is stable. No acute ST-T changes in the EKG noted. No evidence of ischemia, no evidence of angina or ____ congestive heart failure. The patient is ciarra ared to go from cardiology point of view. We will follow with you. RECOMMENDATION: Interim, continue atorvastatin, continue gentle hydration and the patient is off asp irin and Plavix. We will follow with you. The patient is bradycardic, not on beta nam. Thank you, Dr. Jacobsen, for providing us the opportunity in taking care of the patient. We will get lipid profile, TSH, hemoglobin A1c in the blood workup in the morning. Lizzie Samuel MD cc: [phone] TT: 12/10/2016 09:30:09 Confirmation # [id number] Dictation # [id number] tn
[2016-12-10] MEDS: Zinc Oxide Topical 40% Oint (Desitin) TOP SCH ×2 (12:15→17:08)
--- NOTE | 2016-12-10 12:55 | PN ---
DATE: 12/10/2016 SUBJECTIVE: The patient is a 71-year-old, seen and examined lying in bed. No more active bleeding. He does have a nasty rash in the perineal area with excoriation in the left inner thigh. No complai nt of chest pain, no shortness of breath, no abdominal pain. PHYSICAL EXAMINATION: VITAL SIGNS: He is afebrile, pulse 55, respirations 14, blood pressure 129/75. LUNGS: Bilateral fair airflow, no rhonchi or crackle. HEART: S1, S2 audible. No murmur. ABDOMEN: Soft, nontender. No rebound, no guarding. NEUROLOGIC: He is awake and alert, communicative. Moves all extremities. He has erythema in the medial ____. He is being prepped for colonoscopy. According to the nurse, he is still having liquidy bowel moveme nts. It is not clear, so colonoscopy has been on hold. ASSESSMENT: 1. History of rectal bleeding. 2. Questionable coronary ischemia with abnormal electrocardiogram, but upon comparison it was found to be same. Dr. Thorpe is following the patient. 3. Mild dementia. 4. Hypertension. 5. Hyperlipidemia. PLAN: Telemetry can be discontinued. There is no sign of active ischemia. If it is okay with cardio logy, will continue to prep him to have colonoscopy done. Will follow up the patient in the a.m. Yakov Jacobsen MD cc: [phone] TT: 12/10/2016 12:54:34 Confirmation # [id number] Dictation # [id number] mn
--- NOTE | 2016-12-10 15:33 | CP.PCM.PN ---
Subjective - Date & Time of Evaluation Date of Evaluation: 12/10/16 Time of Evaluation: 10:00 - Subjective Subjective: GI FU note, currently covering Dr. Jignesh Castañeda. Seen and examined. Patient with poor colon prep. Colonoscopy cancelled. No reports of bleeding. Objective - Vital Signs/Intake and Output Vital Signs (last 24 hours): Temp Pulse Resp BP Pulse Ox 97.5 F L 68 20 129/78 96 12/10/16 12:00 12/10/16 12:00 12/10/16 12:00 12/10/16 12:00 12/10/16 09:38 Intake and Output: 12/10/16 12/10/16 06:59 18:59 Intake Total 0 Output Total 400 Balance -400 - Medications Medications: Current Medications Amlodipine Besylate (Norvasc) 10 mg PO DAILY [facility] Last Admin: 12/10/16 10:53 Dose: 10 mg Atorvastatin Calcium (Lipitor) 20 mg PO DIN [facility] Last Admin: 12/09/16 16:58 Dose: 20 mg Finasteride (Proscar) 5 mg PO DAILY [facility] Last Admin: 12/10/16 10:53 Dose: 5 mg Folic Acid (Folic Acid) 1 mg PO DAILY [facility] Last Admin: 12/10/16 10:53 Dose: 1 mg Ondansetron HCl (Zofran Inj) 4 mg IVP Q4H PRN PRN Reason: Nausea/Vomiting Ondansetron HCl (Zofran Odt) 4 mg PO Q6 PRN PRN Reason: Nausea/Vomiting Pantoprazole Sodium (Protonix Inj) 40 mg IVP DAILY [facility] Last Admin: 12/10/16 10:53 Dose: 40 mg Petrolatum (Desitin Maximum Strength Topical 40% Oint) 0 gm TOP BID [facility] Last Admin: 12/10/16 12:15 Dose: 1 applic - Labs Labs: PT 12.5 Seconds (9.9-11.8) H 12/08/16 13:05 INR 1.16 (0.93-1.08) H 12/08/16 13:05 APTT 27.4 Seconds (23.7-30.8) 12/08/16 13:05 - Constitutional Appears: No Acute Distress - Head Exam Head Exam: NORMAL INSPECTION - Eye Exam Eye Exam: Normal appearance. absent: Scleral icterus - ENT Exam ENT Exam: Mucous Membranes Moist - Neck Exam Neck Exam: Normal Inspection - Respiratory Exam Respiratory Exam: NORMAL BREATHING PATTERN. absent: Respiratory Distress - GI/Abdominal Exam GI & Abdominal Exam: Soft, Hypoactive Bowel Sounds, Normal Bowel Sounds. absent : Tenderness - Neurological Exam Neurological Exam: Alert, Awake, Oriented x3 - Skin Skin Exam: Dry, Warm Assessment and Plan - Assessment and Plan (Free Text) Assessment: ASSESSMENT: GIB, rectal bleed CAD, s/p angioplasty HTN HLD EKG changes: ischemic changes reported , cardiac has been following, no acute findings PLAN: restart clear liquid PPI monitor H/H reschedule for EGD/COLON Seen and examined discussed with Dr. Reese.
[2016-12-10] MEDS ORDERED: Magnesium Citrate Oral SOL (300 ml) PO STA (21:10)
[2016-12-10] MEDS ORDERED: Bisacodyl 5mg EC Tab PO STA (21:10)
--- NOTE | 2016-12-11 00:14 | PN ---
DATE: 12/10/2016 ADDENDUM This is an addendum to the GI progress report dictated by Bettie Mccarthy NP. The patient came for a colonoscopic evaluation, but the procedure was canceled as the patient has a l arge amount of stool in the rectum. The procedure was rescheduled for repeat colonoscopy. Discussed with the patient who has agreed. Also discussed with Dr. Jacobsen. Thank you very much for allowing us to participate in the care of the patient. Aleksandr Reese MD cc: [id number] TT: 12/11/2016 00:13:20 Confirmation # [id number] Dictation # [id number] mn
[2016-12-11] MEDS ORDERED: Bisacodyl 5mg EC Tab PO ONE (06:00)
[2016-12-11] MEDS ORDERED: Peg-Electrolyte Oral Soln 4L (Golytely) PO ONE (06:00)
[2016-12-11 07:17] LABS: HEMATOCRIT 44.3 % (42.0-52.0); MEAN CELL VOLUME 84.1 fL (80.0-105.0); MEAN CORPUSCULAR HEMOGLOBIN 28.5 pg (25.0-35.0); MEAN CORPUSCULAR HGB CONC 33.9 g/dl (31.0-37.0); PLATELET COUNT 66 10^3/uL (120.0-450.0); RED CELL DISTRIBUTION WIDTH 15.6 % (11.5-14.5)
[2016-12-11 07:25] LABS: ALB/GLOB RATIO 1.6 (1.1-1.8); ALKALINE PHOSPHATASE 50 U/L (38-133); ALT/SGPT 35 U/L (7-56); AST/SGOT 22 U/L (15-59); BILIRUBIN,TOTAL 0.9 mg/dL (0.2-1.3); BLOOD UREA NITROGEN 10 mg/dL (7-21); CALCIUM 9.6 mg/dL (8.4-10.5); CARBON DIOXIDE 30 mmol/L (21-33); CHLORIDE 102 mmol/L (95-110); CHOLESTEROL 133 mg/dL (130-200); GFR AFRICAN-AMERICAN > 60; GLUCOSE,RANDOM 94 mg/dL (70-110); MAGNESIUM 2.3 mg/dL (1.7-2.2); PHOSPHOROUS 3.1 mg/dL (2.5-4.5); POTASSIUM 3.6 mmol/L (3.6-5.0); SODIUM 142 mmol/L (132-148); TOTAL PROTEIN 6.7 g/dL (5.8-8.3)
[2016-12-11 08:43] LABS: ADD MANUAL DIFF? YES
[2016-12-11 08:44] LABS: NEUTROPHIL 65 % (50.0-70.0); PLATELET ESTIMATE LOW (NORMAL)
[2016-12-11 08:45] LABS: ANISOCYTOSIS SLIGHT
[2016-12-11] MEDS: Zinc Oxide Topical 40% Oint (Desitin) TOP SCH ×2 (09:19→17:21)
--- NOTE | 2016-12-11 13:02 | PN ---
DATE: 12/11/2016 The patient is in room 376, bed 2. REASON FOR CONSULTATION AND FOLLOWUP: Coronary artery disease, rectal bleeding, preop evaluation for GI procedure. HISTORY OF PRESENT ILLNESS: The patient is a 71-year-old male known to have coronary artery disease and stent insertion in the past. Last stent was 2006. The patient had last catheterization in 2007 which showed nonobstructive coronary disease, patent stents and medical therapy was to be continued. The patient also known to have rheumatoid arthritis, hyperlipidemia, low platelet count, hypertensio n. The patient needs workup for rectal bleeding. He denies any chest pain, shortness of breath, pal pitation. Lying flat in bed without any symptoms. PHYSICAL EXAMINATION: VITAL SIGNS: Blood pressure 128/74, respirations 20, pulse 60, temperature 98.5. HEAD: Normocephalic. EYES: Pupils normal. Conjunctivae normal. NECK: JVP low. Carotid equal. THORAX: AP diameter normal. LUNGS: Clear. CARDIOVASCULAR: S1, S2. ABDOMEN: Soft, no tenderness, no organomegaly. Bowel sounds normal. EXTREMITIES: No clubbing, no cyanosis. LABORATORY DATA: WBC 5.0, hemoglobin 15.0, hematocrit 44.3, platelet 66, manual 70. Sodium 142, pot assium 3.6, BUN 10, creatinine 1.2, calcium 9.6, phosphorus 3.1, magnesium 2.3. AST, ALT normal. TS H 1.40. DIAGNOSES: Rectal bleeding, history of thrombocytopenia, coronary artery disease, history of stents, hypertension, hyperlipidemia, rheumatoid arthritis, rectal bleeding. RECOMMENDATION: From cardiac point of view, clinically cardiac status is stable and the patient can go for GI procedure like endoscopy, colonoscopy or any other procedure as a moderate risk from cardia c point of view. The patient is not on beta-nam because of resting bradycardia present. The pat ient is off Plavix and aspirin due to rectal bleeding and patient does not have any cardiac symptoms at present. The patient is on folic acid 1 mg daily, atorvastatin 20 daily, amlodipine 10 mg daily, Proscar 5 mg daily, Protonix 40 mg IV daily. We will continue present therapy. We will follow with you. Lizzie Thorpe MD cc: [phone] TT: 12/11/2016 13:00:53 Confirmation # [id number] Dictation # [id number] tn
[2016-12-11] MEDS ORDERED: Etomidate 20 mg/10ml Inj IV ONE (13:38)
[2016-12-11] MEDS ORDERED: Midazolam 2 MG/2 ML VIAL ONE (13:38)
[2016-12-11] MEDS ORDERED: Propofol 10 mg/ml Inj (20 ML) ONE (13:38)
[2016-12-11] MEDS: Silver Sulfadiazine 1% Cream (20 gm) TOP SCH (17:20)
--- NOTE | 2016-12-11 18:49 | PN ---
DATE: 12/11/2016 SUBJECTIVE: The patient is 71 years old, seen and examined, seems to be somewhat confused with time and space. No more rectal bleeding. Still being prepped for colonoscopy. Denies any chest pain. N o shortness of breath. PHYSICAL EXAMINATION: VITAL SIGNS: He is afebrile, pulse 74, respirations 16, blood pressure 125/70. LUNGS: Bilateral fair airflow, no rhonchi or crackle. HEART: S1, S2 audible. ABDOMEN: Soft, nontender, no rebound, no guarding. NEUROLOGIC: He is awake and alert, communicative. LABORATORY EXAMINATION: WBC is 5.0, hemoglobin 15, hematocrit 44, platelets 66. PT 12.5, INR 1.16. Chemistry: Sodium 142, potassium 3.6, chloride 102, CO2 of 30, BUN 10, creatinine 1.2, blood sugar of 94, magnesium 2.3, total bilirubin 0.9. ASSESSMENT AND PLAN: 1. Rectal bleeding; doubt active bleeding. During colon prep, he had no episodes of rectal bleeding . 2. Abnormal EKG, rule out underlying coronary artery disease. 3. Hypertension. 4. Mild dementia. PLAN: The patient is undergoing endoscopy and colonoscopy today. He is very much confused and disor iented, more so in the evening. He needs to be in a supervised environment. I will discuss with soc ial services for possible long-term placement. Yakov Jacobsen MD cc: [phone] TT: 12/11/2016 18:48:30 Confirmation # [id number] Dictation # [id number] dn
[2016-12-12] MEDS: Silver Sulfadiazine 1% Cream (20 gm) TOP SCH ×2 (09:49→17:47)
[2016-12-12] MEDS: Zinc Oxide Topical 40% Oint (Desitin) TOP SCH ×2 (09:49→17:47)
--- NOTE | 2016-12-12 12:17 | PN ---
DATE: 12/12/2016 SUBJECTIVE: The patient is a 71-year-old, seen and examined, seems to be forgetful. He states he mendez s occasional abdominal cramp and underwent endoscopy and colonoscopy that showed 3 polyps that were r emoved. The patient is confused and is unable to live by himself. Social workers are working on his placement. PHYSICAL EXAMINATION: GENERAL: Today, he is awake and alert, forgetful. VITAL SIGNS: He is afebrile, pulse 60, respirations 17, blood pressure 118/59. LUNGS: Bilateral fair airflow, no rhonchi or crackle. HEART: S1, S2 audible. ABDOMEN: Soft, nontender, no rebound, no guarding. NEUROLOGIC: He is awake and alert, communicative. Moves all extremities. LABORATORY EXAMINATION: There is no new lab available today. ASSESSMENT: 1. Status post rectal bleeding. 2. Thrombocytopenia. 3. Coronary artery disease. 4. Hypertension. 5. Hyperlipidemia. 6. Dementia. PLAN: The patient is currently on folic acid 1 mg daily. He is on atorvastatin, amlodipine, finaste ride and I will change his Protonix to p.o. and will reevaluate this patient in a.m. client services manager are in the process of making placement arrangement. Yakov Jacobsen MD cc: [phone] TT: 12/12/2016 12:17:00 Confirmation # [id number] Dictation # [id number] tn
--- NOTE | 2016-12-12 15:33 | CON ---
DATE: 12/12/2016 HISTORY OF PRESENT ILLNESS: The patient is a 71-year-old male who was admitted to the medical floor because of complaints of abdominal pain and reported rectal bleeding and diarrhea. Psychiatry was ca lled because there is a question of patient's statement of disposition of patient back to his home. Review of social work notes, which indicated that the patient's cousin was spoken with and she provid ed collateral information that he is not able to pay finances on time as well as rent on time and lolly t his apartment is a health hazard and guardianship is to be pursued. I met with patient at bedside and he is superficially friendly and cooperative with questioning. I agree with social work note in that he is disoriented. He is aware that he is in [facility]; however, believes it was and then guesses it is 2006. He indicates that he came in to the hospital because of a few mon ths of having abdominal pain, which culminated to vomiting episode. The patient did mention that he had rectal bleeding during the time of my evaluation. At present, the patient reports that he "feels okay." He denies having any hallucinations or depression; however, it is clear that his judgment is incapacitated. I discussed the reports of patient's poor hygiene as well as ability to care for at home and patient indicates that "I don't know too much about that". I asked him about his ability to pay his rent on time and he does not recall the last time he paid his rent, he is not even able to t ell me what the total cost of his rent is. The patient indicates to me that he has been sick for a f ew months with abdominal pain and because of this, he has lost weight and has only been eating about 1 meal a day. The patient also indicates that he has not been showering and taking care of himself. He does not have a good explanation as to why he did not seek medical treatment earlier and let his condition degenerate. In this respect the patient's judgment and poor self care is in question and t his provider has doubts about his ability to care for himself once he is medically cleared. VITAL SIGNS AND LABORATORY DATA: Reviewed. MEDICATIONS: Also reviewed and they include Aricept 5 mg at bedtime. PSYCHIATRIC HISTORY: The patient denies having any psychiatric history including suicide attempts, h ospitalizations, or psychiatric medication. SOCIAL HISTORY: The patient reports that he was born and raised in [place]. He is single, he lives by himself. He has no children. He lives in an apartment, does not know the cost of his rent. He i s unemployed but he is retired and used to work in [employer]. Denies any drug or alcohol issue. IMPRESSION: Delirium in the context of possible dementia. RECOMMENDATIONS: At this time the patient is not psychiatrically cleared to be able to be discharged to his home. He is clearly showing deficits in self care, not only based on cousin's report that hi s home is a health hazard, but also patient, on account of his history of not caring for his own hygi katey, indicates that he did not shower for a few months or pay his finances for a few months putting h is home at risk due to assisted issue, as well as the inability of getting treatment for his health is sues as the patient has reported abdominal pain for the last few months, leading to increasing weakne ss, decreased appetite, decreased p.o. intake. At this time he does meet criteria for ____ because o f poor self care. He does not want to go to the psychiatric unit and wants to be discharged to home. In this respect if he is medically cleared, he should be screened by [facility] bec ause of his inability to care for himself. I also strongly recommend that guardianship should be pur sued as a legal matter and psychiatry will continue to follow up with patient to monitor his mental s tatus every 2 days. Please request earlier consult if there are any acute changes in patient's menta l status. Caity Hoskins MD cc: [id number] TT: 12/12/2016 15:32:21 Confirmation # [id number] Dictation # [id number] jn
--- NOTE | 2016-12-12 23:38 | PN ---
DATE: 12/12/2016 SUBJECTIVE: This patient was seen and evaluated earlier today. Tolerating the diet. PHYSICAL EXAMINATION: VITAL SIGNS: Temperature is 97.8, pulse is 60 and blood pressure is 108/59. HEENT: Atraumatic. Anicteric. NECK: Supple. HEART: S1, S2 heard. LUNGS: Bilateral air entry present. ABDOMEN: Soft. There was no tenderness. LABORATORY DATA: Hemoglobin 15, hematocrit 44.3, WBC 5.0 and platelets 66. These were the labs done yesterday. There were no labs done today. IMPRESSION/PLAN: The patient has history of gastrointestinal bleeding, status post esophagogastroduodenoscopy/colonoscopy. Colonoscopy revealed ascending colon polyp, which has been removed with 2 clips or 3 clips applied. The procedure was done as polyp removal by EMR technique. There is no upper gastrointestinal source of blood loss noticed. Would recommend a pathology followup of the hemoglobin and hematocrit. Hematology could work up for the thrombocytopenia, coronary artery disease, hypertension and dyslipidemia. The patient is awaiting further episodes in the process of making a decision about the placement. Aleksandr Reese MD cc: [id number] TT: 12/12/2016 23:37:42 Confirmation # [id number] Dictation # [id number] sn MTDD
[2016-12-13] MEDS: Pantoprazole 40 mg EC Tab PO SCH (05:47)
[2016-12-13] MEDS: Silver Sulfadiazine 1% Cream (20 gm) TOP SCH ×2 (09:12→17:32)
[2016-12-13] MEDS: Zinc Oxide Topical 40% Oint (Desitin) TOP SCH ×2 (09:12→17:31)
[2016-12-13 11:17] LABS: ADD MANUAL DIFF? NO
[2016-12-13 11:28] LABS: BLOOD UREA NITROGEN 12 mg/dL (7-21); CALCIUM 9.6 mg/dL (8.4-10.5); CARBON DIOXIDE 26 mmol/L (21-33); CHLORIDE 100 mmol/L (98-107); GFR AFRICAN-AMERICAN > 60; GLUCOSE,RANDOM 140 mg/dL (70-110); POTASSIUM 3.9 mmol/L (3.6-5.0); SODIUM 137 mmol/L (132-148)
--- NOTE | 2016-12-13 11:28 | PN ---
DATE: 12/13/2016 HISTORY OF PRESENT ILLNESS: The patient is a 71-year-old male admitted to the hospital with lower GI bleed. He complains of abdominal pain and had bloody loose stools. He has history of diverticulosi s. He had hemoglobin decline to 13.9 during hospitalization, did not require any blood transfusion. Platelet count has been low 80,000, which declined to 70,000 on 12/11/2016. He is on aspirin and Skye vix. He underwent EGD, colonoscopy, which shows colonic polyp. Polyp was removed, pathology pending . He did not have further episodes of bleeding per rectum. No abdominal pain today. He has coronar y artery disease, has been stable, no issues. PAST MEDICAL HISTORY: Coronary artery disease, thrombocytopenia, hypertension, hyperlipidemia, histo ry of right foot frostbite. ALLERGIES: No known drug allergies. PAST SURGICAL HISTORY: Unknown. FAMILY HISTORY: Not significant. No positive history mother, father. PERSONAL HISTORY: Ex-smoker, heavy smoker before. No history of drug abuse. REVIEW OF SYSTEMS: As per HPI. Rest of 12-point reviewed, negative. PHYSICAL EXAMINATION: GENERAL: Comfortable in bed, in no acute distress. VITAL SIGNS: Stable. Temperature 98.9, heart rate is 98 per minute, blood pressure 140/70, pulse ox is 98% on room air, blood pressure 140/77. HEENT: Pallor positive. Head atraumatic, normocephalic. Oral mucosa moist. NECK: Supple. No lymphadenopathy. CHEST: Air entry present, equal bilateral. No added sound. CARDIOVASCULAR: S1, S2 normal. No murmur, no gallop. ABDOMEN: Soft, nontender, no hepatosplenomegaly. EXTREMITIES: No edema. SPINE: Nontender. CENTRAL NERVOUS SYSTEM: Alert, oriented x 3. No sensorimotor deficit. LABORATORIES: Last done on 12/11/2006, white count 5000, hemoglobin 15, prior hemoglobin was 13.9, pl atelet count of 66, previously it was 80,000. Granulocytosis 80% lymphopenia 10% lymphocytes. INR 1 .16, PT 12.5. Sodium 142, potassium 3.6, BUN 10, creatinine 1.2, total bilirubin 1.4, AST 87, ALT 43 , alkaline phosphatase 57, total protein 8.4. TSH 1.4. CAT scan of abdomen and pelvis unremarkable, except for renal stones. ASSESSMENT: 1. Lower gastrointestinal bleed. 2. Anemia. 3. Thrombocytopenia. 4. Coronary artery disease. 5. Hyperlipidemia. 6. Colonic polyp. PLAN: No recent gastrointestinal bleed. Colonoscopy, endoscopy showed colonic polyp, pathology pend ing. We will do the workup for anemia. He might have iron deficiency. Thrombocytopenia needs to be worked up. He might have idiopathic thrombocytopenic purpura, which might also exacerbate gastroint estinal bleed. Platelet count needs to be monitored closely. We will do blood work today. CBC, BMP , iron studies, B12, folate ordered stat. Renal functions have been within normal limits. Bilirubin was elevated on admission 1.5, declined to 0.9 on 12/11. UA was positive for blood. We will continu e antihypertensive, Norvasc 5 mg daily. Continue Aricept 5 mg daily, folic acid, Zofran, Protonix. Silver sulfadiazine for local application. Lyndsay Umana MD cc: [id number] TT: 12/13/2016 11:28:06 Confirmation # [id number] Dictation # [id number] en
[2016-12-13 11:30] LABS: BASO # 0.01 K/mm3 (0.0-2.0); BASO % 0.1 % (0.0-3.0); EOS % 0.3 % (1.5-5.0); GRAN % 70.2 % (50.0-68.0); HEMATOCRIT 41.6 % (42.0-52.0); LYMPH # 0.7 (1.2-3.4); LYMPH % 8.8 % (22.0-35.0); MEAN CORPUSCULAR HEMOGLOBIN 28.3 pg (25.0-35.0); MEAN CORPUSCULAR HGB CONC 34.1 g/dl (31.0-37.0); MONO # 1.5 (0.1-0.6); MONO % 20.6 % (1.0-6.0); PLATELET COUNT 73 10^3/uL (120.0-450.0); RED CELL DISTRIBUTION WIDTH 15.2 % (11.5-14.5); WHITE BLOOD COUNT 7.4 10^3/ul (4.5-11.0)
[2016-12-13 11:40] LABS: IRON 33 ug/dL (45-180)
[2016-12-13 18:50] LABS: FOLATE > 20.0 ng/mL
--- NOTE | 2016-12-13 23:53 | PN ---
DATE: 12/13/2016 ADDENDUM SUBJECTIVE: This patient was seen and evaluated earlier. This is an addendum to the GI progress report dictated earlier today. The patient is tolerating the diet. PHYSICAL EXAMINATION: VITAL SIGNS: Stable. ABDOMEN: Soft. There is no mass palpable. EXTREMITIES: No edema. LABORATORY DATA: Hemoglobin 14.2, stable. IMPRESSION: GI bleeding in the hospital, status post EGD, colonoscopy and had a polyp removed from the ascending colon, status post clip placement. RECOMMENDATIONS: Follow up with the pathology report. Followup of the hemoglobin and hematocrit. Awaiting for placement evaluation. Thank you very much for allowing us to participate in the care of the patient. Aleksandr Reese MD cc: [id number] TT: 12/13/2016 23:52:57 Confirmation # [id number] Dictation # [id number] kareem HERNDON
[2016-12-14] MEDS: Pantoprazole 40 mg EC Tab PO SCH (05:33)
--- NOTE | 2016-12-14 09:12 | CP.PCM.CON ---
<Missy Sharpe - Last Filed: 12/15/16 14:42> History of Present Illness - History of Present Illness History of Present Illness: 71 year old male with PMHx of hyperlipidemia, HTN, CAD, Diverticulitis was seen resting comfortably at bedside, with attending Dr. Lucas, regarding right hallux eschar. He was seen by podiatry when he was in house in September, and since then the wounds on his feet have gotten better. He denies any pain. Denies any n/v/f/c/sob/cp. Past Patient History - Infectious Disease Hx of Infectious Diseases: None - Past Medical History & Family History Past Medical History?: Yes - Past Social History Smoking Status: Never Smoked - CARDIAC Hx Cardiac Disorders: Yes Hx Cardia Arrhythmia: Yes Hx Circulatory Problems: Yes Hx Hypercholesterolemia: Yes Hx Hypertension: Yes - PULMONARY Hx Respiratory Disorders: No - NEUROLOGICAL Hx Neurological Disorder: Yes Hx Transient Ischemic Attacks (TIA): Yes - HEENT Hx HEENT Problems: No Other/Comment: glasses - RENAL Hx Pyelonephritis: Yes - ENDOCRINE/METABOLIC Hx Endocrine Disorders: No - HEMATOLOGICAL/ONCOLOGICAL Hx Blood Transfusions: No - INTEGUMENTARY Hx Dermatological Problems: Yes - MUSCULOSKELETAL/RHEUMATOLOGICAL Hx Falls: No - GASTROINTESTINAL Hx Gastrointestinal Disorders: Yes - GENITOURINARY/GYNECOLOGICAL Hx Genitourinary Disorders: Yes Hx Hematuria: Yes Hx Incontinence: Yes Hx Urinary Tract Infection: Yes - PSYCHIATRIC Hx Substance Use: No - SURGICAL HISTORY Hx Surgeries: Yes - ANESTHESIA Hx Anesthesia Reactions: No Hx Malignant Hyperthermia: No Meds Allergies/Adverse Reactions: Allergies Allergy/AdvReac Type Severity Reaction Status Date / Time No Known Allergies Allergy Verified 12/08/16 12:41 - Medications Medications: Current Medications Amlodipine Besylate (Norvasc) 10 mg PO DAILY [facility] Last Admin: 12/13/16 09:12 Dose: 10 mg Atorvastatin Calcium (Lipitor) 20 mg PO DIN [facility] Last Admin: 12/13/16 17:32 Dose: 20 mg Donepezil HCl (Aricept) 5 mg PO HS [facility] Last Admin: 12/13/16 21:33 Dose: 5 mg Finasteride (Proscar) 5 mg PO DAILY [facility] Last Admin: 12/13/16 09:12 Dose: 5 mg Folic Acid (Folic Acid) 1 mg PO DAILY [facility] Last Admin: 12/13/16 09:12 Dose: 1 mg Ondansetron HCl (Zofran Inj) 4 mg IVP Q4H PRN PRN Reason: Nausea/Vomiting Ondansetron HCl (Zofran Odt) 4 mg PO Q6 PRN PRN Reason: Nausea/Vomiting Pantoprazole Sodium (Protonix Ec Tab) 40 mg PO 0630 [facility] Last Admin: 12/14/16 05:33 Dose: 40 mg Petrolatum (Desitin Maximum Strength Topical 40% Oint) 0 gm TOP BID [facility] Last Admin: 12/13/16 17:31 Dose: 1 applic Silver Sulfadiazine (Silvadene 1% 20 Gm) 0 ea TOP BID [facility] Last Admin: 12/13/16 17:32 Dose: 1 applic Physical Exam - Constitutional Appears: Non-toxic, No Acute Distress - Extremities Exam Additional comments: Lower extremity focused examination: Vasc:DP pulses weakly palpable b/l, PT pulses non-palpable b/l. CFT < 4 seconds to all digits b/l. Skin temperature WNL. Neuro:Gross sensation diminished b/l. Derm:Scab noted to the plantar aspect of the right hallux, no drainage, no malodor, no purulence, no edema, no erythema, no acute signs of infection noted. Ortho: No pain on palpation to right hallux - Neurological Exam Neurological exam: Alert Results - Vital Signs Recent Vital Signs: Last Vital Signs Temp 98.0 F 12/14/16 06:00 Pulse 61 12/14/16 06:00 Resp 20 12/14/16 06:00 BP 133/75 12/14/16 06:00 Pulse Ox 97 12/14/16 06:00 - Labs Result Diagrams: 12/15/16 07:00 12/15/16 07:00 Labs: Laboratory Results - last 24 hr 12/13/16 12/13/16 12/13/16 11:10 11:10 11:10 WBC 7.4 D RBC 5.01 Hgb 14.2 Hct 41.6 L MCV 83.0 MCH 28.3 MCHC 34.1 RDW 15.2 H Plt Count 73 L Gran % 70.2 H Lymph % (Auto) 8.8 L Russell % (Auto) 20.6 H Eos % (Auto) 0.3 L Baso % (Auto) 0.1 Gran # 5.20 Lymph # 0.7 L Russell # 1.5 H Eos # 0.0 Baso # 0.01 Sodium 137 Potassium 3.9 Chloride 100 Carbon Dioxide 26 Anion Gap 15 BUN 12 Creatinine 1.2 Est GFR ( Amer) > 60 Est GFR (Non-Af Amer) 60 Random Glucose 140 H Calcium 9.6 Iron 33 L TIBC 272 % Saturation 12 L Ferritin 69.0 Vitamin B12 516 Folate > 20.0 Assessment & Plan - Assessment and Plan (Free Text) Assessment: 71 year old male with scab noted to the plantar aspect of right hallux Plan: patient examined and evaluated at bedside with attending Dr. Lucas labs and vitals reviewed; afebrile, WBC 7.4 (12/13/16) right hallux scab- no dressing needed thank you for allowing us to participate in the care for this patient please re-consult as necessary <Nkechi Lucas - Last Filed: 01/03/17 16:35> Results - Vital Signs Recent Vital Signs: Last Vital Signs Temp 98.6 F 12/29/16 08:41 Pulse 47 L 12/29/16 08:41 Resp 18 12/29/16 08:41 BP 136/78 12/29/16 08:41 Pulse Ox 97 12/29/16 08:41 - Labs Result Diagrams: 12/17/16 07:30 12/17/16 07:30 Attending/Attestation - Attestation I have personally seen and examined this patient.: Yes I have fully participated in the care of the patient.: Yes I have reviewed all pertinent clinical information: Yes
[2016-12-14] MEDS: Silver Sulfadiazine 1% Cream (20 gm) TOP SCH ×2 (09:13→18:46)
[2016-12-14] MEDS: Zinc Oxide Topical 40% Oint (Desitin) TOP SCH ×2 (09:13→18:46)
--- NOTE | 2016-12-14 10:16 | PQF ANEMIA ---
This form is a permanent part of the medical record Dr. Jacobsen, Chart reflects this patient was admitted with rectal bleeding, slight drop in H/ H, and thrombocytopenia. Although anemia was not severe and did not require transfusion, could you provide any more specificity as to etiology or cause, is it chronic GI blood loss, other cause? Clarification of your documentation is requested to better reflect the severity of illness and intensity of treatment of your patient. Indicators present [x] Anemia [] Drop in H&H from []___ to []___ [] Hypotension [] GI Bleed [] Transfusion(s) [] Acute bleed other sites [] Tachycardia [] Surgical Procedure Blood Loss (expected not a complication) Other:[] Location in the medical record that reflects the above clinical findings: [] Treatment Provided: [] PHYSICIAN'S RESPONSE Based on your medical judgment of the clinical indicators outlined above, are you treating this patient for a known or suspected: [] Acute blood loss anemia [] Chronic blood loss anemia [] Acute on Chronic blood loss anemia [] Anemia due to malignancy [] Anemia due to chemotherapy or radiation therapy [x] Anemia of Chronic Disease, please specify: [] [] Other, please indicate type of anemia []____ [] If Unable to Determine, please check the box, sign and date. Present On Admission (POA) Indicator: [] Present at the time of admission [] Not present at the time of admission [x] Clinically Undetermined In responding to this query, please exercise your independent professional judgment. The fact that a question is asked does not imply that any particular answer is desired or expected. Thank you for your clarification on this documentation. If you have any questions please call:[ ] * Thank you, [ ]Ramsey [facility] #[id number] licensed direct entry midwife KATRINA
--- NOTE | 2016-12-14 10:49 | PN ---
DATE: 12/14/2016 FOLLOWUP NOTE Shortly, the patient is a 71-year-old male with not known previous psychiatric history. Th e patient was admitted to the medical floor for evaluation of rectal bleeding and diarrhea. Psychiat ry was called because the patient had difficultly to function in the community and ability to make de cisions about his discharge plan and treatment plan. The patient was seen and examined. Dr. Hoskins's notes reviewed. The patient was evaluated. Discusse d with the renal social worker. Upon evaluation, the patient presented to be alert, pleasant, cooperative. The patient knows that he is in [facility], but disoriented in time. The patient thinks that right now is 05/2007. Whe n this ad writer educated the patient about the current date, the patient seemed to be surprised. The p atient denied being depressed, denied thoughts of harming himself or others, denied intent or plan. The patient denied hearing voices, denied seeing things, denied paranoid ideation. The patient does not present to be depressed, anxious, or psychotic. The patient said that he lives by himself, has d ifficulties with his finances, but at present moment, the patient reported that his cousin is emily barney to come from [place] to help him at home, but at the same time, this information is not confirmed. This ad writer had prolonged conversation with the renal social worker and case sealer about this plan. Going back to the patient's presentation, the patient is compliant with the medications, as well as t reatment plan. No agitation, no behavioral disturbances. VITAL SIGNS: Stable. Temperature 98.0. Pulse is 61, blood pressure 114/65, respirations 20. Oxyge n saturation is 97. MEDICATIONS: Reviewed. The patient is on Norvasc 10 mg daily, Lipitor 20 mg at the nighttime, Arice pt 5 mg at the nighttime, Proscar 5 mg daily, folic acid 1 mg daily, Zofran as needed, Protonix 40 mg daily, as well as Silvadene. LABORATORY DATA: This ad writer reviewed labs. Hematology: Hematocrit 41.6. Platelet count is 17, wh ich is low. Granulocytes are within normal limits. Chemistry seems to be within normal limits. Uri nalysis showed blood trace light. This ad writer reviewed previous history. The patient never been evaluated by psychiatrist before that seems to have no previous history of mental illness. Discussed with the nursing staff on the medical floor. No agitation, no aggression, no behavioral disturbances. MENTAL STATUS EXAMINATION: The patient presented to be alert. The patient knows that he is in the h [facility]spital, but disoriented in time. The patient has intermittent eye contact, pleasant. Speech was un derproductive - yes/no answers. Mood described as "I'm fine, I am doing okay." Affect was reactive, mood congruent, but at the same time, the patient was smiling appropriately. Thought process seems to be goal directed. Thought content: The patient denied visual, auditory, or tactile hallucination s. Denied paranoid ideations. Denied thoughts of harming himself or others. Denied intent or plan. Insight and judgment seem to be improving. Impulses are well-controlled. IMPRESSION: The patient seems to be improving. Dr. Hoskins had the impression that the patient is in delirium stage, as well as dementia. I agree with that diagnosis. RECOMMENDATIONS: Social work evaluation to help find out how the patient was functioning in the comm unity. If the patient is not able to take care of himself, and has a family member who wants to help him with his finances as well as with decision-making, it would be beneficial. As per the patient, his cousin is coming from [place] in order to help him with his living situation. layout worker is i nvmarylin. There are no signs of depression, no signs of psychosis. Had prolonged conversation with s ocial worker. This ad writer will sign off. Should you have any questions, give me a call back. More information needs to be obtained from the family. Thank you very much for letting me participate in the care of your patient. Should you have any ques tions, give me a call back. Makayla Patiño MD cc: [id number] TT: 12/14/2016 10:48:12 Confirmation # [id number] Dictation # [id number] jn
--- NOTE | 2016-12-14 11:41 | PN ---
DATE: 12/14/2016 SUBJECTIVE: The patient is lying in bed, comfortable. He denies any rectal bleeding. He is status post colonoscopy with EMR of the large ascending colon polyp. He was admitted to the hospital with l ower GI bleeding. His count has remained stable. VITAL SIGNS: Reveal temperature of 98, blood pressure 114/65, heart rate 61. ABDOMEN: Soft, nontender. LABORATORY DATA: No new laboratory data are available. IMPRESSION: A 71-year-old male with known history of idiopathic thrombocytopenic purpura with lower gastrointestinal bleeding, status post colonoscopy with removal of a large ascending colon polyp. RECOMMENDATIONS: 1. To follow up on the pathology of the polyp. 2. The patient is stable from a GI standpoint. Jignesh Castañeda MD cc: [id number] TT: 12/14/2016 11:41:14 Confirmation # [id number] Dictation # [id number] errol
--- NOTE | 2016-12-14 13:13 | PN ---
DATE: 12/14/2016 The patient in room 376, bed 2. REASON FOR CONSULTATION AND FOLLOWUP: Coronary artery disease, rectal bleeding, hypertension, hyperl ipidemia. HISTORY OF PRESENT ILLNESS: The patient is a 71-year-old male known to have coronary artery disease, status post angioplasty, last cath in 2007 for which medical therapy was suggested. The patient had multiple stents in the past. The patient admitted with rectal bleeding and patient had an EGD and c olonoscopy and had a polyp removed from the ascending colon. The patient lying flat in bed without c hest pain, shortness of breath, palpitation. PHYSICAL EXAMINATION: VITAL SIGNS: Blood pressure 114/65, respirations 20, pulse 61, temperature 98.0. HEAD: Normocephalic. EYES: Pupils normal. Conjunctivae normal. NOSE AND THROAT: Normal. NECK: JVP low. Carotid equal. THORAX: AP diameter normal. LUNGS: Clear. CARDIOVASCULAR: S1, S2. ABDOMEN: Soft, no tenderness, no organomegaly. Bowel sounds normal. EXTREMITIES: No clubbing, no cyanosis. LABORATORY DATA: WBC 7.4, hemoglobin 14.2, hematocrit 41.6, platelets 70. Sodium 137, potassium 3.9 , BUN 12, creatinine 1.2, random glucose 140. DIAGNOSES: Rectal bleeding, history of thrombocytopenia, coronary artery disease, history of stents, hypertension, hyperlipidemia, rheumatoid arthritis, rectal bleeding, status post ascending colon rem oval of the polyp. PLAN: From cardiac point of view, patient is asymptomatic. We will continue present therapy. Folic acid 1 mg daily, Lipitor 20 mg daily, amlodipine 10 mg daily, Proscar 5 mg daily, Protonix 40 mg p.o . daily. We will follow with you. Lizzie Thorpe MD cc: [phone] TT: 12/14/2016 13:12:15 Confirmation # [id number] Dictation # [id number] sn
--- NOTE | 2016-12-14 15:32 | PN ---
DATE: 12/14/2016 The patient is a 71-year-old, seen and examined, lying in bed. He seems to be comfortable, eating an d tolerating. PHYSICAL EXAMINATION: VITAL SIGNS: He is afebrile, pulse 61, respirations 20, blood pressure 114/65. LUNGS: Bilateral fair airflow, no rhonchi or crackle. HEART: S1, S2 audible. ABDOMEN: Soft, nontender, no rebound, no guarding. NEUROLOGIC: He is awake and alert, communicative, but forgetful. ASSESSMENT: 1. Dementia. 2. Status post rectal bleeding. His endoscopy, colonoscopy is unremarkable. 3. Hypertension. 4. Hyperlipidemia. 5. Thrombocytopenia, chronic, but stable, no active bleeding. PLAN: Continue patient on current medication including Aricept. He is on folic acid. We will gregor nue him on Lipitor, amlodipine, and Proscar. He is on Protonix. We will continue that. Social serv ices are in the process of making arrangements for long-term placement and applying for guardianship. Yakov Jacobsen MD cc: [phone] TT: 12/14/2016 15:30:57 Confirmation # [id number] Dictation # [id number] en
[2016-12-15] MEDS: Pantoprazole 40 mg EC Tab PO SCH (06:18)
[2016-12-15 07:30] LABS: HEMATOCRIT 42.5 % (42.0-52.0); MEAN CELL VOLUME 83.3 fL (80.0-105.0); MEAN CORPUSCULAR HEMOGLOBIN 27.8 pg (25.0-35.0); MEAN CORPUSCULAR HGB CONC 33.4 g/dl (31.0-37.0); PLATELET COUNT 89 10^3/uL (120.0-450.0); RED CELL DISTRIBUTION WIDTH 15.3 % (11.5-14.5); WHITE BLOOD COUNT 7.2 10^3/ul (4.5-11.0)
[2016-12-15 07:55] LABS: ALB/GLOB RATIO 1.3 (1.1-1.8); ALKALINE PHOSPHATASE 46 U/L (38-133); ALT/SGPT 24 U/L (7-56); AST/SGOT 17 U/L (15-59); BILIRUBIN,TOTAL 0.7 mg/dL (0.2-1.3); BLOOD UREA NITROGEN 21 mg/dL (7-21); CALCIUM 9.9 mg/dL (8.4-10.5); CARBON DIOXIDE 27 mmol/L (21-33); CHLORIDE 99 mmol/L (98-107); GFR AFRICAN-AMERICAN > 60; GLUCOSE,RANDOM 94 mg/dL (70-110); SODIUM 137 mmol/L (132-148); TOTAL PROTEIN 7.2 g/dL (5.8-8.3)
[2016-12-15] MEDS: Silver Sulfadiazine 1% Cream (20 gm) TOP SCH ×2 (09:23→17:30)
[2016-12-15] MEDS: Zinc Oxide Topical 40% Oint (Desitin) TOP SCH ×2 (09:23→17:30)
--- NOTE | 2016-12-15 12:24 | PN ---
DATE: 12/15/2016 REASON FOR CONSULTATION AND FOLLOWUP: Coronary artery disease, rectal bleeding, hypertension, hyperl ipidemia. BRIEF CLINICAL HISTORY: A 71-year-old male with a past medical history significant for coronary baylee ry disease, status post multiple stents, last catheterization in 2007 which medical treatment suggest ed. The patient admitted with rectal bleeding, status post EGD, colonoscopy as well as polypectomy r emoved. Lying flat, denies any chest pain, shortness of breath or any palpitation. PHYSICAL EXAMINATION: VITAL SIGNS: Temperature afebrile, heart rate 59, blood pressure 133/80. HEENT: PERRLA. Extraocular muscles intact. NECK: Supple. No carotid bruits. No thyromegaly. CHEST: Clear to auscultation. HEART: S1, S2 regular. ABDOMEN: Soft. EXTREMITIES: Clubbing and cyanosis negative. LABORATORY DATA: Blood workup as follows: WBC 7.3, hemoglobin 14.____, hematocrit 42.5, platelet co unt 89. Chemistry shows sodium 137, potassium 4, chloride 90, carbon dioxide 27, anion gap of 15, BU N 21, creatinine 1.3. IMPRESSION: Rectal bleeding, status post endoscopy, status post polypectomy, status post colonoscopy , hypertension, coronary artery disease, status post multiple stents, history of rheumatoid arthritis , hypertension, hyperlipidemia. RECOMMENDATION: The patient is currently asymptomatic, no anginal symptom. Continue folic acid. Co ntinue amlodipine, Lipitor, Protonix. Mentioned to patient to follow up with Dr. Thorpe upon dischar for continuation of care. From cardiac point of view, the patient has multiple stent, probably osman ggest to review the old stress test or 6-8 weeks repeat the stress test after the symptoms of GI blee d resolve, possibly in 2-3 months. We will follow with you. Emphasis made for followup with Dr. Rice. Lizzie Samuel MD cc: [phone] TT: 12/15/2016 12:23:48 Confirmation # [id number] Dictation # [id number] tn
--- NOTE | 2016-12-15 12:35 | PN ---
DATE: 12/15/2016 SUBJECTIVE: The patient is a 71-year-old, seen and examined, doing well, lying in bed. No nausea, v omiting, no diarrhea. Eating and tolerating. No rectal bleeding. No hemoptysis, hematemesis. PHYSICAL EXAMINATION: VITAL SIGNS: He is afebrile, pulse 59, respirations 18, blood pressure 133/80. LUNGS: Bilateral good airflow, no rhonchi or crackle. HEART: S1, S2 audible. ABDOMEN: Soft, nontender, no rebound, no guarding. NEUROLOGIC: The patient is awake and alert. LABORATORY: WBC 7.2, hemoglobin 14.2, hematocrit 42.5, platelet of 89. Chemistry: Sodium 137, pota ssium 4.0, chloride 99, CO2 27, BUN 21, creatinine 1.3, blood sugar of 94. ASSESSMENT: 1. Status post rectal bleeding. No evidence of active bleeding, status post endoscopy and colonosco py. 2. Chronic thrombocytopenia. 3. Hypertension. 4. Coronary artery disease. 5. Dementia. PLAN: Will continue patient on current medical treatment. Awaiting guardianship and placement. Yakov Jacobsen MD cc: [phone] TT: 12/15/2016 12:35:04 Confirmation # [id number] Dictation # [id number] lety
--- NOTE | 2016-12-15 14:06 | PN ---
DATE: 12/15/2016 ADDENDUM Addendum to my previous note which was dictated yesterday. Based on the conversation yesterday, patient said that he has cousin who is coming from [place] in or [facility] to help him with his living situation and finances. Based on the collateral information taken by the oncology social work, there is no cousin available to help patient with his financial situation. The p atient seems to be having difficulty to remember and stay focused. Also, patient has difficulty to t esha care of his finances. As per apartment building where patient used to live, patient did not pay rent for the past 3 months. As per report from the apartment building, patient's apartment is a mess . The patient was not able to take care of his finances as well as taking care of grocery shopping a nd cleaning his apartment. The patient also has cognitive decline. Based on this information, most likely patient has dementia and delirium is clearing. Based on evaluation, patient does not have any mood symptoms. He denied thoughts of killing himself or others. The patient is calm and cooperativ e, but still has difficulty to remember things and also difficulty to have executive functioning. Th is underwriter recommends that patient deemed to have no capacity to make rational decisions about his dis positional plan. In regards of the treatment, medical team is pursuing guardianship for this patient because patient does not have family members who can participate in patient's care in reasonable way . The patient seems to be not able to function in the community. The patient did not have doctor's appointment for months, was not paying his rent for months, was having difficulties to have executive functioning including grocery shopping, paying his bills. The patient deemed benefit from nursing h ome placement. Case discussed with the oncology social work. Should you have any questions, give me a call back. Makayla Patiño MD cc: [phone] TT: 12/15/2016 14:06:02 Confirmation # [id number] Dictation # [id number] en
[2016-12-16] MEDS: Pantoprazole 40 mg EC Tab PO SCH (05:44)
[2016-12-16] MEDS: Zinc Oxide Topical 40% Oint (Desitin) TOP SCH ×2 (09:35→17:41)
[2016-12-16] MEDS: Silver Sulfadiazine 1% Cream (20 gm) TOP SCH (09:36)
--- NOTE | 2016-12-16 11:08 | PN ---
DATE: 12/16/2016 SUBJECTIVE: The patient is lying in bed, comfortable. He denies any rectal bleeding, diarrhea, naus ea, vomiting. PHYSICAL EXAMINATION: VITAL SIGNS: Reveal temperature of 98, blood pressure 148/90, heart rate is 62. ABDOMEN: Soft, nontender. Pathology of ascending colon polyp from colonoscopy last week by Dr. Reese revealed a tubulovillou s adenoma. 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 RECOMMENDATIONS: The patient is stable from a GI standpoint, awaiting placement as per social servic es. Jignesh Castañeda MD cc: [phone] TT: 12/16/2016 11:07:35 Confirmation # [id number] Dictation # [id number] lety
--- NOTE | 2016-12-16 12:31 | PN ---
DATE: 12/16/2016 SUBJECTIVE: The patient is a 71-year-old, seen and examined, sitting in chair, ambulatory and does n ot look in any distress. Eating and tolerating. PHYSICAL EXAMINATION: VITAL SIGNS: He is afebrile, pulse 62, respirations 20, blood pressure 148/90. LUNGS: Bilateral fair airflow, no rhonchi or crackle. HEART: S1, S2 audible. ABDOMEN: Soft, nontender, no rebound, no guarding. NEUROLOGIC: He is awake and alert, confused and forgetful. ASSESSMENT: 1. History of rectal bleed. 2. Dementia. 3. Hypertension. PLAN: We will continue patient on current medical treatment. Currently, the patient is stable, awai ting placement and guardianship. Yakov Jacobsen MD cc: [phone] TT: 12/16/2016 12:29:54 Confirmation # [id number] Dictation # [id number] tn
--- NOTE | 2016-12-16 18:36 | PN ---
DATE: 12/16/2016 The patient is in room 376, bed #2. REASON FOR CONSULTATION AND FOLLOWUP: Coronary artery disease, rectal bleeding, hypertension and hyp erlipidemia. HISTORY OF PRESENT ILLNESS: This is a 71-year-old male with a past medical history significant for c oronary artery disease, status post multiple stents, last catheterization in 2007, which suggested me dical therapy. The patient was admitted with rectal bleeding, status post EGD, colonoscopy as well a s polypectomy from the ascending colon. The patient from cardiac point of view is asymptomatic, lyin g comfortably in bed without chest pain, shortness of breath or palpitation. PHYSICAL EXAMINATION: VITAL SIGNS: Blood pressure 148/90, respirations 20, pulse 62, temperature 98. HEAD: Normocephalic. EYES: Pupils normal. Conjunctivae normal. NOSE AND THROAT: Normal. NECK: JVP low. Carotid equal. THORAX: AP diameter normal. LUNGS: Clear. CARDIOVASCULAR: S1, S2. ABDOMEN: Soft, nontender. No organomegaly. Bowel sounds normal. EXTREMITIES: No clubbing, no cyanosis. LABORATORY DATA: WBC 7.2, hemoglobin 14.2, hematocrit 42.5, platelet 89. Sodium 137, potassium 4.0, BUN 21, creatinine 1.3. AST and ALT normal. Total protein and albumin normal. DIAGNOSES: bleeding, status post endoscopy and colonoscopy, status post polypectomy, hypertens ion, coronary artery disease status post multiple stents, history of rheumatoid arthritis, hypertensi on and hyperlipidemia. PLAN: The patient is asymptomatic from a cardiac point of view. The patient on folic acid 1 mg yael y, Lipitor 20 daily, amlodipine 10 daily, Proscar 5 mg daily and Protonix 40 daily. Will continue pr esent therapy and will follow with you. Lizzie Thorpe MD cc: [phone] TT: 12/16/2016 18:35:54 Confirmation # [id number] Dictation # [id number] dn
--- NOTE | 2016-12-17 17:01 | PN ---
DATE: 12/17/2016 REASON FOR CONSULTATION AND FOLLOWUP: Evaluation for endoscopy, colonoscopy, gastrointestinal bleed, coronary artery disease. BRIEF CLINICAL HISTORY: A 71-year-old male with past medical history significant for coronary artery disease, status post multiple stents, last stent in 2007, admitted with a GI bleed, underwent endosc opy, colonoscopy. Denies any chest pain, shortness of breath, any palpitation. PHYSICAL EXAMINATION: VITAL SIGNS: Heart rate 72, blood pressure 120/80. HEENT: PERRLA. Extraocular muscles intact. NECK: Supple. No carotid bruit. No thyromegaly. CHEST: Clear to auscultation. HEART: S1, S2 regular. ABDOMEN: Soft. EXTREMITIES: Clubbing and cyanosis negative. LABORATORY DATA: Blood workup pending as computer system is down. IMPRESSION: Coronary artery disease, as well as multiple stents, hypertension, hyperlipidemia, gastr ointestinal bleed. RECOMMENDATION: CV status is stable. Continue GI workup. Consider a stress test in 3-6 months once the patient is stable. Discussed with the patient. We will follow with you. Thank you, Dr. Jacobsen, for providing the opportunity in taking care of this patient. Lizzie Samuel MD cc: [phone] TT: 12/17/2016 17:01:19 Confirmation # [id number] Dictation # [id number] lety
[2016-12-17 22:00] LABS: ADD MANUAL DIFF? NO
[2016-12-18] MEDS: Pantoprazole 40 mg EC Tab PO SCH (05:46)
[2016-12-18] MEDS: Zinc Oxide Topical 40% Oint (Desitin) TOP SCH ×2 (09:49→17:03)
[2016-12-18] MEDS: Silver Sulfadiazine 1% Cream (20 gm) TOP SCH ×2 (09:49→17:03)
[2016-12-18 12:18] LABS: BASO # 0.01 K/mm3 (0.0-2.0); BASO % 0.2 % (0.0-3.0); EOS % 0.5 % (1.5-5.0); GRAN # 3.81 (1.4-6.5); GRAN % 57.3 % (50.0-68.0); LYMPH # 1.5 (1.2-3.4); LYMPH % 22.3 % (22.0-35.0); MEAN CELL VOLUME 84.8 fL (80.0-105.0); MEAN CORPUSCULAR HEMOGLOBIN 28.4 pg (25.0-35.0); MEAN CORPUSCULAR HGB CONC 33.5 g/dl (31.0-37.0); MONO # 1.3 (0.1-0.6); MONO % 19.7 % (1.0-6.0); PLATELET COUNT 102 10^3/uL (120.0-450.0); RED CELL DISTRIBUTION WIDTH 15.5 % (11.5-14.5); WHITE BLOOD COUNT 6.6 10^3/ul (4.5-11.0)
[2016-12-18 13:01] LABS: ALB/GLOB RATIO 1.3 (1.1-1.8); ALKALINE PHOSPHATASE 46 U/L (38-133); ALT/SGPT 26 U/L (7-56); AST/SGOT 20 U/L (15-59); BILIRUBIN,TOTAL 0.7 mg/dL (0.2-1.3); BLOOD UREA NITROGEN 22 mg/dL (7-21); CARBON DIOXIDE 29 mmol/L (21-33); CHLORIDE 99 mmol/L (98-107); GFR AFRICAN-AMERICAN > 60; GLUCOSE,RANDOM 84 mg/dL (70-110); POTASSIUM 4.4 mmol/L (3.6-5.0); SODIUM 139 mmol/L (132-148); TOTAL PROTEIN 7.2 g/dL (5.8-8.3)
--- NOTE | 2016-12-18 19:54 | PN ---
DATE: 12/18/2016 REASON FOR CONSULTATION: Coronary artery disease, rectal bleeding, hypertension, hyperlipidemia. BRIEF CLINICAL HISTORY: This is a 71-year-old male with a past medical history significant for coron lisette artery disease, history of multiple stents, admitted status post gastrointestinal bleed and colonoscopy; now the patient is stable. He denies any chest pain, shortness of breath or any palpit ation. PHYSICAL EXAMINATION: VITAL SIGNS: Temperature afebrile, heart rate 57, blood pressure 127/76. HEENT: PERRLA. Extraocular muscles intact. NECK: Supple. No carotid bruits. No thyromegaly. CHEST: Clear to auscultation. HEART: S1, S2 regular. ABDOMEN: Soft. EXTREMITIES: Clubbing and cyanosis negative. LABORATORY DATA: Blood workup as follows: WBC 6.6, hemoglobin , hematocrit 43.0, platelet coun t 102 as of yesterday. Chemistry as of yesterday: Sodium 130, potassium , chloride 90, carbon dioxide 29, anion gap of 15, BUN 22. IMPRESSION: Coronary artery disease, status post multiple stents in the past; anemia, rectal bleed, status post colonoscopy and endoscopy, status post polypectomy; rheumatoid arthritis, hypertension an d hyperlipidemia. RECOMMENDATION: The patient is stable from a cardiology point of view. Suggest once the patient goe s home, consider stress test in 3-6 months and further cardiac workup as needed. Will follow w ith you. Thank you, Dr. Jacobsen, for providing the opportunity in taking care of this patient. Lizzie Samuel MD cc: [phone] TT: 12/18/2016 19:54:10 Confirmation # [id number] Dictation # [id number] dn
--- NOTE | 2016-12-18 20:49 | PN ---
DATE: 12/18/2016 SUBJECTIVE: The patient has no complaints of any chest pain or shortness of breath, no headaches. PHYSICAL EXAMINATION: VITAL SIGNS: Temperature is 98.2, pulse of 57, blood pressure 150/98, respirations 22. GENERAL: The patient comfortable, in no acute distress. HEENT: Anicteric sclerae. Moist mucosa. NECK: No JVD or adenopathy. CARDIAC: S1/S2. No murmurs. No rubs. Regular. RESPIRATORY: Clear to auscultation bilaterally. No wheezes, rales, or rhonchi. Good air entry. ABDOMEN: Bowel sounds are positive, soft, nontender, and nondistended. EXTREMITIES: No edema. Has 1+ pulses. LABORATORY DATA: White count of 6.6, hemoglobin 14.4, creatinine is 1.3. ASSESSMENT: 1. Rectal bleeding. 2. Dementia. 3. Hypertension. 4. Thrombocytopenia. PLAN: The patient has a hemoglobin that is stable. The patient does have thrombocytopenia. The [facility] ient has iron deficiency with saturation is 12%. The patient is being followed by Dr. Samuel. The pat ient is on Lipitor for dyslipidemia. He is on Norvasc for hypertension. The patient is going to be on Zofran as needed. Paras Baird MD cc: [phone] TT: 12/18/2016 20:48:49 Confirmation # [id number] Dictation # [id number] dn
[2016-12-19] MEDS: Pantoprazole 40 mg EC Tab PO SCH (06:01)
[2016-12-19] MEDS: Silver Sulfadiazine 1% Cream (20 gm) TOP SCH ×2 (09:46→19:56)
[2016-12-19] MEDS: Zinc Oxide Topical 40% Oint (Desitin) TOP SCH ×2 (09:46→19:56)
--- NOTE | 2016-12-19 18:55 | PN ---
DATE: 12/19/2016 The patient is a 71-year-old, seen and examined, sitting in chair, comfortable. No nausea, vomiting, no diarrhea, no fever, no chills. PHYSICAL EXAMINATION: VITAL SIGNS: He is afebrile, pulse 56, respirations 18, blood pressure 121/76. LUNGS: Bilateral good airflow, no rhonchi or crackle. HEART: S1, S2 audible. ABDOMEN: Soft, nontender, no rebound, no guarding. NEUROLOGIC: He is awake and alert, communicative, ambulatory. LABORATORY EXAMINATION: There is no new lab available today. ASSESSMENT AND PLAN: 1. History of rectal bleeding. The patient is stable now. 2. Hypertension. 3. Coronary artery disease. 4. Hyperlipidemia. 5. Mild dementia. PLAN: We will continue the patient on current medical treatment, awaiting long-term placement. Yakov Jacobsen MD cc: [phone] TT: 12/19/2016 18:55:15 Confirmation # [id number] Dictation # [id number] mn
[2016-12-20] MEDS: Pantoprazole 40 mg EC Tab PO SCH (05:29)
--- NOTE | 2016-12-20 11:25 | PN ---
DATE: 12/20/2016 DATE: 12/20/2016 SUBJECTIVE: The patient has no complaints of any chest pain, no shortness of breath, no headaches or dizziness. PHYSICAL EXAMINATION: VITAL SIGNS: Temperature is 98.2. Pulse is 67. Blood pressure 120/80. Respiration is 18. GENERAL: The patient is comfortable, in no acute distress. HEENT: Anicteric sclerae. Moist mucosa. NECK: No JVD or adenopathy. CARDIAC: S1/S2. No murmurs. No rubs. Regular. RESPIRATORY: Clear to auscultation bilaterally. No wheezes, rales, or rhonchi. Good air entry. ABDOMEN: Bowel sounds are positive, soft, nontender, and nondistended. EXTREMITIES: No edema. Has 1+ pulses. ASSESSMENT: 1. Rectal bleeding. 2. Dementia. 3. Hypertension. 4. Thrombocytopenia. 5. Coronary artery disease. 6. Dyslipidemia. PLAN: The patient is currently comfortable. He is receiving Aricept for dementia. The patient most likely has Alzheimer's. He is waiting for long-term care bed to open up. He is rec [facility] for hypertension. He is on Lipitor for dyslipidemia. He is on a heart healthy diet. He is comfortable. Paras Baird MD cc: [phone] TT: 12/20/2016 11:24:41 Confirmation # [id number] Dictation # [id number] errol
[2016-12-20] MEDS: Silver Sulfadiazine 1% Cream (20 gm) TOP SCH ×2 (11:46→18:23)
[2016-12-20] MEDS: Zinc Oxide Topical 40% Oint (Desitin) TOP SCH ×2 (11:46→18:23)
[2016-12-21] MEDS: Pantoprazole 40 mg EC Tab PO SCH (05:35)
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
[2016-12-21] MEDS: Zinc Oxide Topical 40% Oint (Desitin) TOP SCH ×3 (11:46→17:49)
[2016-12-21] MEDS: Silver Sulfadiazine 1% Cream (20 gm) TOP SCH ×3 (11:47→17:50)
--- NOTE | 2016-12-21 12:49 | PN ---
DATE: 12/21/2016 The patient is a 71-year-old, seen and examined sitting in chair. Seems to be comfortable. No nause a, vomiting, no diarrhea. Eating and tolerating. PHYSICAL EXAMINATION: VITAL SIGNS: He is afebrile, pulse 59, respirations 20, blood pressure 125/75. LUNGS: Bilateral fair airflow, no rhonchi or crackle. HEART: S1, S2 audible. No murmur. ABDOMEN: Soft, nontender, no rebound, no guarding. NEUROLOGIC: He is awake and alert, able to communicate, ambulatory. ASSESSMENT AND PLAN: 1. History of rectal bleeding, status post endoscopy and colonoscopy, unremarkable. 2. Mild dementia. 3. Hypertension. 4. Thrombocytopenia. 5. Coronary artery disease. 6. Hyperlipidemia. PLAN: The patient is not capable of taking care of himself. marketing services vice president are in the process of m aking arrangements for guardianship and possible long-term placement. Yakvo Jacobsen MD cc: 413 TT: 12/21/2016 12:48:51 Confirmation # [id number] Dictation # [id number] mn
--- NOTE | 2016-12-21 18:07 | PN ---
DATE: 12/21/2016 REASON FOR CONSULTATION: Followup of his coronary artery disease, rectal bleeding, hypertension, hype rlipidemia. HISTORY OF PRESENT ILLNESS: A 71-year-old male with past medical history significant for coronary ar kesha disease, multiple stents, admitted with GI bleeding and colonoscopy. Now the patient is stable, lying flat in bed without chest pain, shortness of breath, palpitation. PHYSICAL EXAMINATION: VITAL SIGNS: Blood pressure 125/75, respirations 20, pulse 59, temperature 97.8. HEAD: Normocephalic. EYES: Pupils normal. Conjunctivae normal. NOSE AND THROAT: Normal. NECK: JVP low. Carotid equal. THORAX: AP diameter normal. LUNGS: Clear. CARDIOVASCULAR: S1, S2. ABDOMEN: Soft, nontender, no organomegaly. Bowel sounds normal. EXTREMITIES: No clubbing, no cyanosis. LABORATORY DATA: WBC 6.6, hemoglobin 14.4, hematocrit 43.0, platelets 102. Sodium 139, potassium 4. 4, BUN 22, creatinine 1.3. AST, ALT normal. Total protein and albumin normal. DIAGNOSES: Coronary artery disease status post multiple stents in the past, anemia, rectal bleeding, status post coloscopy and endoscopy, status post polypectomy, rheumatoid arthritis, hypertension, hy perlipidemia. RECOMMENDATION AND PLAN: Clinically, the patient's cardiac status is stable. We will continue pres ent therapy and once the patient discharged, in 3-6 months we can do stress test as outpatient for fu rther cardiac evaluation. In the meantime, we will continue present therapy, Lipitor 20 mg daily, am lodipine 10 mg daily, Protonix 40 p.o. daily. We will follow with you. Lizzie Thorpe MD cc: 306 TT: 12/21/2016 18:06:24 Confirmation # [id number] Dictation # [id number] ln
[2016-12-22] MEDS: Pantoprazole 40 mg EC Tab PO SCH (05:46)
[2016-12-22] MEDS: Silver Sulfadiazine 1% Cream (20 gm) TOP SCH ×2 (09:17→17:31)
[2016-12-22] MEDS: Zinc Oxide Topical 40% Oint (Desitin) TOP SCH ×2 (09:17→17:31)
--- NOTE | 2016-12-22 10:13 | PN ---
DATE: 12/22/2016 The patient is in room 376, bed 2. REASON FOR CONSULTATION AND FOLLOWUP: Coronary artery disease, rectal bleeding, hypertension, hyperl ipidemia. HISTORY OF PRESENT ILLNESS: A 71-year-old male with past medical history significant for coronary ar kesha disease, multiple stent insertions, admitted with GI bleeding. Now, patient is stable, lying co mfortably in bed, without any cardiac symptoms. PHYSICAL EXAMINATION: VITAL SIGNS: Blood pressure 108/69, respirations 20, pulse 82, temperature 98.7. HEAD: Normocephalic. EYES: Pupils normal. Conjunctivae normal. NOSE AND THROAT: Normal. NECK: JVP low. Carotid equal. THORAX: AP diameter normal. LUNGS: Clear. CARDIOVASCULAR: S1, S2. ABDOMEN: Soft, no tenderness. No organomegaly. Bowel sounds normal. EXTREMITIES: No clubbing, no cyanosis. LABORATORIES: WBC 6.6, hemoglobin 14.4, hematocrit 43.0, platelet 102. Sodium 139, potassium 4.4, B UN 22, creatinine 1.3. AST, ALT normal. These labs were done on 12/17 and reported on our previous n otes. DIAGNOSES: Coronary artery disease, status post multiple stents in the past, anemia, rectal bleeding , status post coloscopy and endoscopy, status post polypectomy, rheumatoid arthritis, hypertension, h yperlipidemia. PLAN: The patient will continue present therapy. He is asymptomatic from cardiac point of view. In 3-6 months, he can do stress test as outpatient for further cardiac evaluation. The patient now get ting amlodipine 10 mg daily, Lipitor 20 mg daily, Protonix 40 daily. We will follow with you. Lizzie Thorpe MD cc: 306 TT: 12/22/2016 10:12:29 Confirmation # [id number] Dictation # [id number] en
[2016-12-22] MEDS: Ammonium Lactate 12% Cream (140 g) TOP SCH (13:37)
--- NOTE | 2016-12-22 21:46 | PN ---
DATE: 12/22/2016 SUBJECTIVE: The patient is a 71-year-old, seen and examined, sitting in chair, seems to be comfortab le. No nausea, vomiting, or diarrhea. Eating and tolerating. PHYSICAL EXAMINATION: LUNGS: Bilateral good airflow, no rhonchi or crackle. HEART: S1, S2 audible. ABDOMEN: Soft, nontender, no rebound, no guarding. NEUROLOGIC: He is awake and alert, communicative, forgetful. ASSESSMENT: 1. Dementia. 2. Coronary artery disease. 3. Hypertension. 4. Hyperlipidemia. PLAN: Awaiting long-term placement, awaiting guardianship. Continue current medication and reevalua te patient in a.m. Yakov Jacobsen MD cc: 413 TT: 12/22/2016 21:46:19 Confirmation # [id number] Dictation # [id number] lety
[2016-12-23] MEDS: Pantoprazole 40 mg EC Tab PO SCH (05:39)
[2016-12-23] MEDS: Ammonium Lactate 12% Cream (140 g) TOP SCH (09:44)
[2016-12-23] MEDS: Silver Sulfadiazine 1% Cream (20 gm) TOP SCH (09:44)
[2016-12-23] MEDS: Zinc Oxide Topical 40% Oint (Desitin) TOP SCH ×2 (09:44→18:00)
--- NOTE | 2016-12-23 13:44 | PN ---
DATE: 12/23/2016 The patient is in room 376, bed 2. REASON FOR CONSULTATION AND FOLLOWUP: Coronary artery disease, rectal bleeding, hypertension, hyperl ipidemia. HISTORY OF PRESENT ILLNESS: A 71-year-old male with past medical history significant for coronary ar kesha disease, multiple stent insertion, admitted with GI bleeding. Now, the patient is stable, sitti ng in chair without any chest pain, shortness of breath, or palpitation. The patient is waiting for half-way placement because also the patient has dementia. PHYSICAL EXAMINATION: VITAL SIGNS: Blood pressure 128/76, respirations 20, pulse 55, temperature 97.9. HEAD: Normocephalic. EYES: Pupils normal. Conjunctivae normal. NOSE AND THROAT: Normal. NECK: JVP low. Carotid equal. THORAX: AP diameter normal. LUNGS: Clear. CARDIOVASCULAR: S1, S2. ABDOMEN: Soft, no tenderness, no organomegaly. Bowel sounds normal. EXTREMITIES: No clubbing, no cyanosis. LABORATORY DATA: Done on 12/17/2016 and they were reported in our previous notes. DIAGNOSES: Coronary artery disease, status post multiple stents in the past, anemia, rectal bleeding , status post coloscopy and endoscopy, status post polypectomy, rheumatoid arthritis, hypertension, h yperlipidemia, dementia. PLAN: The patient is not having any cardiac symptoms at present and the patient is continuing on beck rvastatin 20 mg daily, amlodipine 10 mg daily, Proscar 5 mg daily, Protonix 40 daily. We will follow with you. Lizzie Thorpe MD cc: 306 TT: 12/23/2016 13:44:23 Confirmation # [id number] Dictation # [id number] tn
--- NOTE | 2016-12-23 18:49 | PN ---
DATE: 12/23/2016 SUBJECTIVE: The patient is a 71-year-old, seen and examined, sitting in chair. Seems to be comforta ble. Denies any chest pain. No shortness of breath, no nausea, vomiting, or diarrhea. Eating and t olerating. No rectal bleeding. No hemoptysis, no hematemesis. PHYSICAL EXAMINATION: VITAL SIGNS: The patient is afebrile, pulse 55, respirations 20, blood pressure 160/72. LUNGS: Bilateral fair airflow, no rhonchi or crackle. HEART: S1, S2 audible. No murmur. ABDOMEN: Soft, nontender, no rebound, no guarding. NEUROLOGIC: The patient is awake and alert, communicative, able to ambulate. ASSESSMENT: 1. Status post rectal bleed, status post GI workup, negative for ulcer or polyp. 2. Coronary artery disease. 3. Hypertension. 4. Hyperlipidemia. PLAN: We will continue patient on current medication. Awaiting long-term placement and guardianship . Yakov Jacobsen MD cc: 413 TT: 12/23/2016 18:48:21 Confirmation # [id number] Dictation # [id number] lety
[2016-12-24] MEDS: Pantoprazole 40 mg EC Tab PO SCH (05:52)
[2016-12-24] MEDS: Silver Sulfadiazine 1% Cream (20 gm) TOP SCH ×2 (10:45→17:42)
[2016-12-24] MEDS: Ammonium Lactate 12% Cream (140 g) TOP SCH (10:45)
[2016-12-24] MEDS: Zinc Oxide Topical 40% Oint (Desitin) TOP SCH ×2 (14:18→17:42)
--- NOTE | 2016-12-24 18:13 | PN ---
DATE: 12/24/2016 SUBJECTIVE: The patient is a 71-year-old, seen and examined, sitting in chair, comfortable ____. No nausea, no vomiting, no diarrhea. Eating and tolerating. PHYSICAL EXAMINATION: VITAL SIGNS: He is afebrile, pulse 52, respirations 20, blood pressure 130/73. LUNGS: Bilateral good airflow, no rhonchi or crackle. HEART: S1, S2 audible. ABDOMEN: Soft, nontender, no rebound, no guarding. NEUROLOGIC: The patient is awake and alert, communicative, ambulatory. ASSESSMENT AND PLAN: 1. Status post rectal bleed, status post upper endoscopy and colonoscopy unremarkable. 2. Dementia. 3. Coronary artery disease. 4. Hypertension. 5. Hyperlipidemia. PLAN: Awaiting guardianship and long-term placement. We will continue current medications. Yakov Jacobsen MD cc: 413 TT: 12/24/2016 18:13:08 Confirmation # [id number] Dictation # [id number] jn
--- NOTE | 2016-12-24 21:19 | PN ---
DATE: 12/24/2016 The patient is in room 374, bed 1. REASON FOR CONSULTATION AND FOLLOWUP: Coronary artery disease, rectal bleeding, hypertension, hyperl ipidemia. HISTORY OF PRESENT ILLNESS: This is a 71-year-old male with a past medical history of several multip le stent insertions for coronary artery disease, admitted with GI bleeding. The patient had a colono scopy and polypectomy. Denies any chest pain, shortness of breath or palpitations. The patient is w aiting for long-term placement. The patient also found to have dementia. The patient does not have any cardiac symptoms at present. PHYSICAL EXAMINATION: VITAL SIGNS: Blood pressure 129/77, respirations 18, pulse 61, temperature 97.5. HEAD: Normocephalic. EYES: Pupils normal. Conjunctivae normal. NOSE AND THROAT: Normal. NECK: JVP low. Carotid equal. THORAX: AP diameter normal. LUNGS: Clear. CARDIOVASCULAR: S1, S2. ABDOMEN: Soft, nontender. No organomegaly. Bowel sounds normal. EXTREMITIES: No clubbing, no cyanosis. LABORATORY DATA: WBC 6.6, hemoglobin 14.4, hematocrit 43.0, platelets 102. Sodium 139, potassium 4. 4, BUN 22, creatinine 1.3, calcium 10.0. AST and ALT normal. DIAGNOSES: Coronary artery disease status post multiple stents in the past, anemia, rectal bleeding, status post coloscopy and endoscopy, status post polypectomy, rheumatoid arthritis, hypertension, hy perlipidemia, dementia. PLAN: Will continue present therapy with , amlodipine, Proscar, Protonix. Also recommend physi toni therapy for the patient. Will follow with you. Lizzie Thorpe MD cc: 306 TT: 12/24/2016 21:19:24 Confirmation # [id number] Dictation # [id number] dn
[2016-12-25] MEDS: Ammonium Lactate 12% Cream (140 g) TOP SCH (10:13)
[2016-12-25] MEDS: Zinc Oxide Topical 40% Oint (Desitin) TOP SCH ×2 (10:13→18:46)
[2016-12-25] MEDS: Silver Sulfadiazine 1% Cream (20 gm) TOP SCH ×2 (10:13→18:47)
--- NOTE | 2016-12-25 12:28 | PN ---
DATE: 12/25/2016 The patient in room 371, bed 1. REASON FOR CONSULTATION AND FOLLOWUP: Coronary artery disease, rectal bleeding, hypertension, hyperl ipidemia. HISTORY OF PRESENT ILLNESS: A 71-year-old male with past medical history significant for: 1. Coronary artery disease, multiple stent insertion. 2. GI bleeding. The patient had a coloscopy/endoscopy, status post polypectomy. The patient denies any abdominal pain, chest pain, shortness of breath, palpitation. The patient ambulating without an y cardiac symptoms. PHYSICAL EXAMINATION: VITAL SIGNS: Blood pressure 124/70, respirations 20, pulse 54, temperature 98.4. HEAD: Normocephalic. EYES: Pupils normal. Conjunctivae normal. NOSE AND THROAT: Normal. NECK: JVP low. Carotid equal. THORAX: AP diameter normal. LUNGS: Clear. CARDIOVASCULAR: S1, S2. ABDOMEN: Soft. No tenderness, no organomegaly. EXTREMITIES: No clubbing, no cyanosis. LABORATORY DATA: WBC 6.6, hemoglobin of 14.4, hematocrit 43.0, platelet 102. Sodium 139, potassium 4.4, BUN 22, creatinine 1.3. AST, ALT, total protein, albumin normal. All these labs were done on 0 12/17/2016 and they were reported previously as well. DIAGNOSES: Coronary artery disease status post multiple stents in the past, anemia, rectal bleeding, status post coloscopy/endoscopy, status post polypectomy, rheumatoid arthritis, hypertension, hyperl ipidemia, dementia. PLAN: The patient is ambulating without any cardiac symptoms. Will continue present therapy and mike l follow with you. Lizzie Thorpe MD cc: [phone] TT: 12/25/2016 12:27:50 Confirmation # [id number] Dictation # [id number] mn
--- NOTE | 2016-12-25 20:07 | PN ---
DATE: 12/25/2016 SUBJECTIVE: The patient is a 71-year-old, seen and examined, sitting in chair, comfortable, not in a ny distress, eating and tolerating. PHYSICAL EXAMINATION: VITAL SIGNS: He is afebrile, pulse 56, respirations 19, blood pressure 124/72. LUNGS: Bilateral fair airflow, no rhonchi or crackle. HEART: S1, S2 audible. No murmur. ABDOMEN: Soft, nontender, no rebound, no guarding. NEUROLOGIC: He is awake and alert, communicative, forgetful, ambulatory. ASSESSMENT: 1. Status post rectal bleeding. 2. Abdominal pain that has resolved, status post endoscopy and colonoscopy, unremarkable. 3. Hypertension. 4. Coronary artery disease. 5. Hyperlipidemia. PLAN: Continue patient on current medication. He is hemodynamically and medically stable. Awaiting guardianship and long-term placement. Yakov Jacobsen MD cc: [phone] TT: 12/25/2016 20:06:11 Confirmation # [id number] Dictation # [id number] lety
[2016-12-26] MEDS: Zinc Oxide Topical 40% Oint (Desitin) TOP SCH ×2 (09:25→17:45)
[2016-12-26] MEDS: Silver Sulfadiazine 1% Cream (20 gm) TOP SCH ×2 (09:39→18:26)
[2016-12-26] MEDS: Pantoprazole 40 mg EC Tab PO SCH (09:39)
[2016-12-26] MEDS: Ammonium Lactate 12% Cream (140 g) TOP SCH (09:39)
--- NOTE | 2016-12-26 12:07 | PN ---
DATE: 12/26/2016 The patient is a 71-year-old, seen and examined, doing well, ambulating. No nausea, vomiting, or jesus rrhea. As per nurse, he is doing well. PHYSICAL EXAMINATION: VITAL SIGNS: He is afebrile, pulse 52, respirations 20, blood pressure 126/78. LUNGS: Bilateral fair airflow, no rhonchi or crackle. HEART: S1, S2 audible. ABDOMEN: Soft, nontender, no rebound, no guarding. NEUROLOGIC: The patient is awake and alert, communicative, ambulatory. ASSESSMENT: 1. Status post rectal bleeding, status post upper and lower endoscopy and colonoscopy that was unrem arkable. 2. Hypertension. 3. Hyperlipidemia. 4. Dementia. PLAN: The patient is awaiting long-term placement and guardianship paperwork is in progress. Contin ue current medication. Yakov Jacobsen MD cc: [phone] TT: 12/26/2016 12:06:45 Confirmation # [id number] Dictation # [id number] tn
[2016-12-27] MEDS: Pantoprazole 40 mg EC Tab PO SCH (05:48)
[2016-12-27] MEDS: Ammonium Lactate 12% Cream (140 g) TOP SCH (10:03)
[2016-12-27] MEDS: Zinc Oxide Topical 40% Oint (Desitin) TOP SCH ×2 (10:04→17:27)
[2016-12-28] MEDS: Pantoprazole 40 mg EC Tab PO SCH (06:06)
[2016-12-28] MEDS: Ammonium Lactate 12% Cream (140 g) TOP SCH (10:34)
[2016-12-28] MEDS: Zinc Oxide Topical 40% Oint (Desitin) TOP SCH ×2 (10:35→18:05)
--- NOTE | 2016-12-28 23:03 | CP.PCM.PN ---
Subjective - Date & Time of Evaluation Date of Evaluation: 12/27/16 Time of Evaluation: 11:00 - Subjective Subjective: Pt. is a 71 year old male with admission for rectal bleeding. Colonoscopy showed colon polyp. He has thrombocytopenia. Plt count stable. No rectal bleed. he has baseline dementia. No abdominal pain. Objective - Vital Signs/Intake and Output Vital Signs (last 24 hours): Temp Pulse Resp BP Pulse Ox 99.1 F 55 L 19 127/73 96 12/28/16 16:44 12/28/16 16:44 12/28/16 16:44 12/28/16 16:44 12/28/16 16:44 Intake and Output: 12/28/16 12/29/16 18:59 06:59 Intake Total 540 Output Total 500 Balance 40 - Medications Medications: Current Medications Atorvastatin Calcium (Lipitor) 20 mg PO DIN [facility] Last Admin: 12/28/16 18:04 Dose: 20 mg Lactic Acid (Lac-Hydrin 12% Cream (140 G)) 0 ea TOP DAILY [facility] Last Admin: 12/28/16 10:34 Dose: 1 applic Petrolatum (Desitin Maximum Strength Topical 40% Oint) 0 gm TOP BID [facility] Last Admin: 12/28/16 18:05 Dose: 1 applic - Labs Labs: 12/17/16 07:30 12/17/16 07:30 PT 12.5 Seconds (9.9-11.8) H 12/08/16 13:05 INR 1.16 (0.93-1.08) H 12/08/16 13:05 APTT 27.4 Seconds (23.7-30.8) 12/08/16 13:05 - Head Exam Head Exam: ATRAUMATIC, NORMAL INSPECTION, NORMOCEPHALIC - Eye Exam Eye Exam: Normal appearance Pupil Exam: NORMAL ACCOMODATION - ENT Exam ENT Exam: Mucous Membranes Moist, Normal Exam - Neck Exam Neck Exam: Normal Inspection - Respiratory Exam Respiratory Exam: Clear to Ausculation Bilateral, NORMAL BREATHING PATTERN - GI/Abdominal Exam GI & Abdominal Exam: Soft, Normal Bowel Sounds - Extremities Exam Extremities Exam: Full ROM, Normal Inspection - Back Exam Back Exam: NORMAL INSPECTION - Neurological Exam Neurological Exam: Alert, Awake, CN II-XII Intact, Normal Gait, Oriented x3 - Skin Skin Exam: Intact, Normal Color, Warm Assessment and Plan - Assessment and Plan (Free Text) Assessment: 1. Rectal Bleed. None recent. Colon polyp. Blood counts stable. 2. Dementia : at baseline. 3. thrombocytopenia : plt count stable. No bleed. 4. Anemia : multifactorial . Hb stable. 5. awaiting placement.
--- NOTE | 2016-12-28 23:07 | CP.PCM.PN ---
Subjective - Date & Time of Evaluation Date of Evaluation: 12/28/16 Time of Evaluation: 12:00 - Subjective Subjective: No complaints. No rectal bleed. Denies abdominal pain. Objective - Vital Signs/Intake and Output Vital Signs (last 24 hours): Temp Pulse Resp BP Pulse Ox 99.1 F 55 L 19 127/73 96 12/28/16 16:44 12/28/16 16:44 12/28/16 16:44 12/28/16 16:44 12/28/16 16:44 Intake and Output: 12/28/16 12/29/16 18:59 06:59 Intake Total 540 Output Total 500 Balance 40 - Medications Medications: Current Medications Atorvastatin Calcium (Lipitor) 20 mg PO DIN [facility] Last Admin: 12/28/16 18:04 Dose: 20 mg Lactic Acid (Lac-Hydrin 12% Cream (140 G)) 0 ea TOP DAILY [facility] Last Admin: 12/28/16 10:34 Dose: 1 applic Petrolatum (Desitin Maximum Strength Topical 40% Oint) 0 gm TOP BID [facility] Last Admin: 12/28/16 18:05 Dose: 1 applic - Labs Labs: 12/17/16 07:30 12/17/16 07:30 PT 12.5 Seconds (9.9-11.8) H 12/08/16 13:05 INR 1.16 (0.93-1.08) H 12/08/16 13:05 APTT 27.4 Seconds (23.7-30.8) 12/08/16 13:05 - Constitutional Appears: Well - Head Exam Head Exam: ATRAUMATIC, NORMAL INSPECTION, NORMOCEPHALIC - Eye Exam Eye Exam: Normal appearance Pupil Exam: NORMAL ACCOMODATION - ENT Exam ENT Exam: Normal Oropharynx - Neck Exam Neck Exam: Normal Inspection - Respiratory Exam Respiratory Exam: Clear to Ausculation Bilateral, NORMAL BREATHING PATTERN - Cardiovascular Exam Cardiovascular Exam: REGULAR RHYTHM, +S1, +S2 - GI/Abdominal Exam GI & Abdominal Exam: Soft, Normal Bowel Sounds - Extremities Exam Extremities Exam: Normal Inspection - Back Exam Back Exam: NORMAL INSPECTION - Neurological Exam Neurological Exam: Alert, CN II-XII Intact, Normal Gait, Oriented x3 - Psychiatric Exam Psychiatric exam: Normal Affect, Normal Mood - Skin Skin Exam: Intact, Normal Color Assessment and Plan - Assessment and Plan (Free Text) Assessment: 1. Rectal Bleed. None recent. Colon polyp. Blood counts stable. 2. Dementia : at baseline. 3. thrombocytopenia : plt count stable. No bleed. 4. Anemia : multifactorial . Hb stable. 5. awaiting placement.
[2016-12-29] MEDS ORDERED: Pantoprazole 40 mg EC Tab PO SCH (06:30)
[2016-12-29] MEDS ORDERED: Pantoprazole 40 mg EC Tab PO ONE (06:30)
--- NOTE | 2016-12-29 08:26 | PN ---
DATE: 12/26/2016 REASON FOR CONSULTATION AND FOLLOWUP: Coronary artery disease, rectal bleeding, hypertension, hyperl ipidemia. BRIEF CLINICAL HISTORY: A 71-year-old male with past medical history significant for multiple stents in the heart, GI bleed, colonoscopy and polypectomy. Denies any chest pain, shortness of breath, aw aiting for the long-term placement. The patient found to be dementia and does not have any cardiac s ymptoms at present. PHYSICAL EXAMINATION: VITAL SIGNS: Temperature afebrile, heart rate 50, blood pressure ____/77. HEENT: PERRLA. Extraocular muscles intact. NECK: Supple. No carotid bruits. No thyromegaly. CHEST: Clear to auscultation. HEART: S1, S2 regular. ABDOMEN: Soft. EXTREMITIES: Clubbing and cyanosis negative. LABORATORY DATA: Blood workup as follows: WBC 6.6, hemoglobin 14.4, hematocrit 43, platelet count 1 02. Chemistry shows sodium ____, potassium 4.0, chloride ____, carbon dioxide ____, anion gap of ___ _, BUN 22, creatinine 1.3. IMPRESSION: History of coronary artery disease, history of multiple stents in the past, asymptomatic anemia, rectal bleeding, status post colonoscopy, endoscopy, status post ____ hypertension, hyperlip idemia, dementia. RECOMMENDATION: Continue current treatment. Continue amlodipine, continue Proscar, continue Protini x, also physical therapy. Suggest the patient in 3-[address] Thorpe for a repeat stre ss test and possible cardiac catheterization if needed. We will follow with you. Thank you, Dr. Jacobsen, for providing the opportunity in taking care of this patient. We will sign o ff. I will be glad to follow p.r.n. Lizzie Samuel MD cc: [phone] TT: 12/26/2016 15:17:14 Confirmation # [id number] Dictation # [id number] errol
[2016-12-29 08:41] VITALS: BP 136/78; PULSE 47; RESP 18; TEMP 98.6; O2SAT 97
[2016-12-29] MEDS: Zinc Oxide Topical 40% Oint (Desitin) TOP SCH (10:11)
[2016-12-29] MEDS: Ammonium Lactate 12% Cream (140 g) TOP SCH (10:12)
--- NOTE | 2016-12-29 15:57 | DS ---
The patient is 71 years old, seen and examined sitting in chair watching TV. Comfortable. No abdomi nal pain. No nausea, vomiting, no diarrhea. No complaint of chest pain. Eating and tolerating, hav ing regular bowel movement. No rectal bleeding. PHYSICAL EXAMINATION: VITAL SIGNS: He is afebrile, pulse 47, respirations 18, blood pressure 136/78. LUNGS: Bilateral fair airflow, no rhonchi or crackle. HEART: S1, S2 audible. No murmur. ABDOMEN: Soft, nontender, no rebound, no guarding. NEUROLOGIC: The patient is awake and alert, answers simple questions. Forgetful, does not know the gravity of his problem. ASSESSMENT: 1. Dementia. 2. Questionable rectal bleeding, status post endoscopy and colonoscopy, they are unremarkable. 3. Hypertension. 4. Coronary artery disease. PLAN: Continue patient on Protonix, atorvastatin and we will start him on Proscar. emergency services director are making arrangement for long-term placement. ____. Hopefully, he will be sent to [facility] ____. Yakov Jacobsen MD cc: [phone] TT: 12/29/2016 15:27:20 sn
[2016-12-30] MEDS ORDERED: Pantoprazole 40 mg EC Tab PO SCH (06:30)
== END 2016-12-29 17:53 | DRG 378 ==
LOC: ED 12:33 → ERH 14:15 → 2RNO 17:46 → OBSVTOIN 12-09 22:20 → 3RSO 12-10 18:38
PROVIDERS: ADMIT Internal Medicine; ATTEND Internal Medicine
PROC: 0DBK8ZX Excision of Ascending Colon, Via Natural or Artificial Opening Endoscopic, Diagnostic (ICD-10-PCS; principal; 2016-12-11 12:00)
PROC: 0DJ08ZZ Inspection of Upper Intestinal Tract, Via Natural or Artificial Opening Endoscopic (ICD-10-PCS; 2016-12-11 12:00)
PROC: 3E0H87Z Introduction of Electrolytic and Water Balance Substance into Lower GI, Via Natural or Artificial Opening Endoscopic (ICD-10-PCS; 2016-12-11 12:00)
DX: K92.2 Gastrointestinal hemorrhage, unspecified (principal); D69.3 Immune thrombocytopenic purpura; F05 Delirium due to known physiological condition; T33.821A Superficial frostbite of right foot, initial encounter; K22.2 Esophageal obstruction; D12.2 Benign neoplasm of ascending colon; K44.9 Diaphragmatic hernia without obstruction or gangrene; E86.0 Dehydration; I10 Essential (primary) hypertension; F03.90 Unspecified dementia, unspecified severity, without behavioral disturbance, psychotic disturbance, mood disturbance, and anxiety; K64.8 Other hemorrhoids; I25.10 Atherosclerotic heart disease of native coronary artery without angina pectoris; E78.5 Hyperlipidemia, unspecified; M06.9 Rheumatoid arthritis, unspecified; R23.4 Changes in skin texture; D63.8 Anemia in other chronic diseases classified elsewhere; Z87.891 Personal history of nicotine dependence; Z75.1 Person awaiting admission to adequate facility elsewhere; Z95.5 Presence of coronary angioplasty implant and graft; X31.XXXA Exposure to excessive natural cold, initial encounter

== ENCOUNTER 2017-05-25 10:56 | Emergency (ER) | payer MEDICAID, MEDICARE ==
[2017-05-25 11:06] VITALS: O2SAT 98
[2017-05-25 11:13] VITALS: BMI 18.3
--- NOTE | 2017-05-25 11:37 | ED PDOC ---
Arrival/HPI - General Chief Complaint: Trauma Time Seen by Provider: 05/25/17 11:27 Historian: Patient - History of Present Illness Narrative History of Present Illness (Text): 05/25/17 11:28 71yo male with PMHx of hypertension and hyperlipdemia who was biba for head injury s/p mechanical fall at 0200am. Patient states he fell foreward and hit his forehead on the floor, while leaning to grab something from the floor. He denies any pain, LOC, focal weakness, nausea, vomiting, dizziness, visual changes, any other complaint. Past Medical History - Provider Review Nursing Documentation Reviewed: Yes - Infectious Disease Hx of Infectious Diseases: None - Cardiac Hx Cardiac Disorders: Yes Hx Hypertension: Yes - Pulmonary Hx Respiratory Disorders: No - Neurological Hx Neurological Disorder: Yes Hx Transient Ischemic Attacks (TIA): Yes - HEENT Hx HEENT Disorder: No Other/Comment: glasses - Renal Hx Pyelonephritis: Yes - Endocrine/Metabolic Hx Endocrine Disorders: No - Hematological/Oncological Hx Blood Transfusions: No - Integumentary Hx Dermatological Disorder: Yes - Musculoskeletal/Rheumatological Hx Falls: No - Gastrointestinal Hx Gastrointestinal Disorders: Yes - Genitourinary/Gynecological Hx Genitourinary Disorders: Yes Hx Hematuria: Yes Hx Incontinence: Yes Hx Urinary Tract Infection: Yes - Psychiatric Hx Psychophysiologic Disorder: No Hx Emotional Abuse: No Hx Physical Abuse: No Hx Substance Use: No - Past Surgical History Past Surgical History: No Previous - Surgical History Hx Coronary Stent: Yes - Anesthesia Hx Anesthesia Reactions: No Hx Malignant Hyperthermia: No - Suicidal Assessment Feels Threatened In Home Enviroment: No Family/Social History - Physician Review Nursing Documentation Reviewed: Yes Family/Social History: Unknown Family HX Smoking Status: Never Smoked Hx Alcohol Use: No Hx Substance Use: No Allergies/Home Meds Allergies/Adverse Reactions: Allergies No Known Allergies Allergy (Verified 12/08/16 12:41) Home Medications: Home Meds Medication Instructions Recorded Confirmed amLODIPine [Norvasc] 10 mg PO DAILY 10/14/15 05/25/17 Folic Acid 1 mg PO DAILY 12/07/15 05/25/17 Atorvastatin [Lipitor] 20 mg PO DAILY 09/04/16 05/25/17 Finasteride [Proscar] 5 mg PO DAILY 09/04/16 05/25/17 Simvastatin 20 mg PO HS 09/04/16 05/25/17 Acetaminophen [8 Hour] 650 mg PO Q4 PRN 05/25/17 05/25/17 Donepezil [Aricept] 5 mg PO HS 05/25/17 05/25/17 Pantoprazole Sodium [Protonix] 40 mg PO DAILY 05/25/17 05/25/17 Review of Systems - Physician Review All systems were reviewed & negative as marked: Yes - Review of Systems Constitutional: Other (Head injury) Eyes: Normal ENT: Normal Respiratory: Normal Cardiovascular: Normal Gastrointestinal: Normal Genitourinary Male: Normal Musculoskeletal: Normal Skin: Normal Neurological: Normal Endocrine: Normal Hemo/Lymphatic: Normal Psychiatric: Normal Physical Exam Vital Signs Reviewed: Yes Vital Signs Temp Pulse Resp BP Pulse Ox 05/25/17 13:05 98.2 F 57 L 19 118/69 98 05/25/17 12:36 59 L 18 135/71 98 05/25/17 11:05 97.9 F 58 L 18 138/75 98 Temperature: Afebrile Blood Pressure: Normal Pulse: Regular Respiratory Rate: Normal Appearance: Positive for: Well-Appearing, Non-Toxic, Comfortable Pain Distress: None Mental Status: Positive for: Alert and Oriented X 3 - Systems Exam Head: Present: Normocephalic, Contusion (Approximately 4 x 4cm hematoma to right forehead with overlaying ecchymosis and abrasion). No: Atraumatic, Tenderness Pupils: Present: PERRL Extroacular Muscles: Present: EOMI Conjunctiva: Present: Normal Mouth: Present: Moist Mucous Membranes Neck: Present: Normal Range of Motion Respiratory/Chest: Present: Clear to Auscultation, Good Air Exchange. No: Respiratory Distress, Accessory Muscle Use Cardiovascular: Present: Regular Rate and Rhythm, Normal S1, S2. No: Murmurs Abdomen: Present: Normal Bowel Sounds. No: Tenderness, Distention, Peritoneal Signs Back: Present: Normal Inspection Upper Extremity: Present: Normal Inspection. No: Cyanosis, Edema Lower Extremity: Present: Normal Inspection. No: Edema Neurological: Present: GCS=15, CN II-XII Intact, Speech Normal Skin: Present: Warm, Dry, Normal Color. No: Rashes Psychiatric: Present: Alert, Oriented x 3, Normal Insight, Normal Concentration Medical Decision Making ED Course and Treatment: 05/25/17 19:01 PT presented for stated history. He was neurological intact in ED. AAO x3. Ice was placed to hematoma. Head CT -Negative. Result was DW the pt. He was DC home with referred to his PMD. - RAD Interpretation Radiology Orders: 05/25/17 11:27 HEAD W/O CONTRAST [CT] Stat Disposition/Present on Arrival - Present on Arrival Any Indicators Present on Arrival: No History of DVT/PE: No History of Uncontrolled Diabetes: No Urinary Catheter: No History of Decub. Ulcer: No History Surgical Site Infection Following: None - Disposition Have Diagnosis and Disposition been Completed?: Yes Diagnosis: Head contusion Disposition: HOME/ ROUTINE Disposition Time: 12:55 Patient Plan: Discharge Condition: STABLE Discharge Instructions (ExitCare): Head Injury (ED) Additional Instructions: Apply ice to the area Follow up with your Doctor Return to ED for any new or worsening symptoms Referrals: Valerio Patel MD [Primary Care Provider] - Follow up with primary Forms: [employer] ([place])
--- NOTE | 2017-05-25 12:37 | CT ---
PROCEDURE: CT HEAD WITHOUT CONTRAST. HISTORY: head injury COMPARISON: Unenhanced head CT 12/06/2016. TECHNIQUE: Axial computed tomography images were obtained through the head/brain without intravenous contrast. Radiation dose: Total exam DLP = mGy-cm. This CT exam was performed using one or more of the following dose reduction techniques: Automated exposure control, adjustment of the mA and/or kV according to patient size, and/or use of iterative reconstruction technique. FINDINGS: HEMORRHAGE: No intracranial hemorrhage. BRAIN: Diffuse cerebral atrophy and chronic microangiopathy are reiterated as well as bifrontal chronic lobar infarctions. Brain parenchyma is otherwise unremarkable above and below the tentorium including the brainstem. VENTRICLES: Unremarkable. No hydrocephalus. CALVARIUM: No fractures identified or destructive bony lesion however a moderately large right frontal scalp hematoma is appreciated from the supraorbital right frontal scalp up to the vertex anteriorly. PARANASAL SINUSES: Unremarkable as visualized. No significant inflammatory changes. MASTOID AIR CELLS: Unremarkable as visualized. No inflammatory changes. OTHER FINDINGS: None. IMPRESSION: 1. No acute intracranial findings. No calvarial fracture. A mildly large right frontal scalp hematoma is appreciated as described above. 2. Age-related neuro degenerative changes are identified with bifrontal chronic lobar infarctions as per above. Follow-up CT or MRI are available if clinically warranted.
[2017-05-25 13:07] VITALS: BP 118/69; PULSE 57; RESP 19; TEMP 98.2
== END 2017-05-25 13:14 | disposition home or self-care (01) ==
LOC: ED 10:56
DX: S00.93XA Contusion of unspecified part of head, initial encounter (principal); W19.XXXA Unspecified fall, initial encounter; I10 Essential (primary) hypertension

== ENCOUNTER 2017-07-07 06:57 | Day surgery (SDC) | payer MEDICARE, MEDICAID ==
[2017-07-02 12:59] VITALS: BMI 25.9
[2017-07-07 07:40] LABS: EOS % 0.3 % (1.5-5.0); GRAN # 2.95 (1.4-6.5); GRAN % 47.6 % (50.0-68.0); LYMPH % 16.3 % (22.0-35.0); MEAN CELL VOLUME 84.2 fl (80.0-105.0); MEAN CORPUSCULAR HEMOGLOBIN 27.7 pg (25.0-35.0); MEAN CORPUSCULAR HGB CONC 32.8 g/dl (31.0-37.0); MONO # 2.2 (0.1-0.6); MONO % 35.8 % (1.0-6.0); PLATELET COUNT 74 10^3/uL (120.0-450.0); RED CELL DISTRIBUTION WIDTH 15.5 % (11.5-14.5); WHITE BLOOD COUNT 6.2 10^3/ul (4.5-11.0)
[2017-07-07 07:49] LABS: INR 1.18 (0.93-1.08); PARTIAL THROMBOPLASTIN TIME 29.6 Seconds (25.1-36.5)
[2017-07-07 07:57] LABS: BLOOD UREA NITROGEN 25 mg/dL (7-21); CALCIUM 10.4 mg/dL (8.4-10.5); CARBON DIOXIDE 28 mmol/L (21-33); CHLORIDE 105 mmol/L (98-107); GFR AFRICAN-AMERICAN > 60; GLUCOSE,RANDOM 95 mg/dL (70-110); POTASSIUM 4.3 mmol/L (3.6-5.0); SODIUM 145 mmol/L (132-148)
[2017-07-07 08:59] LABS: BAND 3 % (0-2); NEUTROPHIL 51 % (50.0-70.0)
[2017-07-07 09:01] LABS: ANISOCYTOSIS SLIGHT; ATYPICAL LYMPHOCYTE 8 % (0.0-0.0); PLATELET ESTIMATE LOW (NORMAL)
[2017-07-07] MEDS ORDERED: Midazolam 2 MG/2 ML VIAL ONE (09:11)
[2017-07-07] MEDS ORDERED: Sodium Chloride 0.45% 1,000 ML IV SCH (10:45)
[2017-07-07 11:44] VITALS: PULSE 51; RESP 20; TEMP 97.5; O2SAT 97
[2017-07-07 13:13] VITALS: BP 152/70
--- NOTE | 2017-07-07 17:09 | CT ---
PROCEDURE: CT guided bone marrow aspiration and biopsy. HISTORY: Thrombocytopenia. Needs bone marrow aspiration and biopsy P. PHYSICIAN(S): Sandip Storey MD. TECHNIQUE: The relative risks and indications of the procedure were explained to the patient and family and consent obtained. The patient was placed prone on the CT scanner and preliminary images through the pelvis obtained. Conscious sedation and monitoring were provided throughout the procedure by a nurse. The right posterior superior iliac spine was selected for biopsy.. A right posterior approach was selected and the area prepped and draped in the usual sterile fashion. 1% Xylocaine was used to anesthetize the skin and soft tissues. An on control bone biopsy needle was advanced to the right posterior and superior iliac spine. Its position was confirmed with CT. The needle was advanced through the cortex and bone marrow aspiration performed. Next a long segment bone marrow core biopsy was obtained. The patient tolerated the procedure well. IMPRESSION: 1. CT-guided bone marrow aspiration and biopsy as described above
== END 2017-07-07 13:10 | disposition designated cancer center or children's hospital (05) ==
LOC: SDS 06:57
PROVIDERS: ATTEND Radiology Vascular & Interventional Radiology
DX: D69.6 Thrombocytopenia, unspecified (principal); I10 Essential (primary) hypertension; I25.10 Atherosclerotic heart disease of native coronary artery without angina pectoris; F03.90 Unspecified dementia, unspecified severity, without behavioral disturbance, psychotic disturbance, mood disturbance, and anxiety
CPT/HCPCS: 36415; 38221; 80048; 85025; 85610; 85730; J2405; J3010; J7030

== ENCOUNTER 2017-11-09 06:59 | Day surgery (SDC) | payer MEDICARE, MEDICAID ==
[2017-10-28 12:51] VITALS: BMI 26.6
[2017-11-09] MEDS ORDERED: Lidocaine 2% Inj (20ml) ONE (10:04)
[2017-11-09] MEDS ORDERED: Propofol 10 mg/ml Inj (20 ML) ONE ×2 (10:04→10:40)
[2017-11-09] MEDS ORDERED: Sodium Chloride 0.9% 1,000 ML IV SCH (11:00)
[2017-11-09 12:18] VITALS: BP 132/81; PULSE 52; RESP 14; TEMP 98.4; O2SAT 98
== END 2017-11-09 13:39 | disposition home or self-care (01) ==
LOC: ENDO 06:59
PROVIDERS: ATTEND Internal Medicine
DX: D12.3 Benign neoplasm of transverse colon (principal); K57.30 Diverticulosis of large intestine without perforation or abscess without bleeding; K64.8 Other hemorrhoids
CPT/HCPCS: 45380; 88305; J2704; J7040 ×2